=== PATIENT | male | born 1960 | race Caucasian/White ===

== ENCOUNTER 2017-04-22 17:53 | Inpatient (IN) | payer MEDICARE, OTHER ==
[~2017-04-22] VITALS: Ht 175.3 cm; Wt 132.4 kg
--- NOTE | 2017-04-22 18:32 | ED.ADGEN ---
Adult General HPI HPI Patient is a 56-year-old man, history of bipolar disorder, hypertension, diabetes mellitus, CHF, hyperlipidemia, chronic a disease, hypothyroidism, chronic back and joint pain status post right knee replacement, who presents to the emergency department for medical clearance for admission to the [facility] unit for medication adjustment. Patient states "things are just not right in the head". He states he has been on medications "for a long time", and that recent medication changes have not helped control his symptoms, is experiencing behavioral outbursts. He denies any chest pain, shortness breath , fevers, chills, states it experiencing his typical chronic back and joint pain. Denies any new or different complaints, any injuries. He is agreeable with plan for admission to the [facility] for psychiatric evaluation and medication adjustment. Review of Systems Review of Systems Constitutional: Denies fever or chills [] Eyes: Denies change in visual acuity, redness, or eye pain [] HENT: Denies nasal congestion or sore throat [] Respiratory: Denies cough or shortness of breath [] Cardiovascular: No additional information not addressed in HPI [] GI: Denies abdominal pain, nausea, vomiting, bloody stools or diarrhea [] : Denies dysuria or hematuria [] Musculoskeletal: Denies back pain or joint pain [] Integument: Denies rash or skin lesions [] Neurologic: Denies headache, focal weakness or sensory changes [] Endocrine: Denies polyuria or polydipsia [] Patient denying all complaints. Current Medications Current Medications Current Medications Medications (Trade) Dose Ordered Sig/[facility] Start Time Stop Time Status Last Admin Dose Admin Clonazepam (KlonoPIN) 0.5 mg 1X ONCE 04/22/17 20:15 04/22/17 20:16 DC 04/22/17 20:20 0.5 MG Allergies Allergies Allergies Coded Allergies Type Severity Reaction Last Updated Verified No Known Drug Allergies 04/22/17 No Physical Exam Physical Exam Constitutional: Well developed, well nourished, no acute distress, non-toxic appearance. [] HENT: Normocephalic, atraumatic, bilateral external ears normal, oropharynx moist, no oral exudates, nose normal. [] Eyes: PERRLA, EOMI, conjunctiva normal, no discharge. [] Neck: Normal range of motion, no tenderness, supple, no stridor. [] Cardiovascular:Heart rate regular rhythm, 3-5 systolic murmur, no rubs or gallops.[] Lungs & Thorax: Bilateral breath sounds clear to auscultation, no wheezing, rhonchi, rales. No chest or crepitus or tenderness. [] Abdomen: Bowel sounds normal, obese, no rebound, rigidity, no guarding, soft, no tenderness, no masses, no pulsatile masses. [] Skin: Warm, dry, no erythema, no rash. [] Back: No tenderness, no CVA tenderness. [] Extremities: No tenderness, no cyanosis, no clubbing, ROM intact, no edema. Negative Homans sign. Status post right knee arthroplasty.[] Neurologic: Alert and oriented X 3, normal motor function, normal sensory function, no focal deficits noted. [] Psychologic: Affect normal, judgement normal, mood normal. [] Current Patient Data Vital Signs Vital Signs Date Time Temp Pulse Resp B/P (MAP) Pulse Ox O2 Delivery O2 Flow Rate FiO2 04/22/17 18:22 80 20 95 Room Air Lab Results Laboratory Tests Test 04/22/17 18:09 04/22/17 18:30 Urine Collection Type Unknown Urine Color Yellow Urine Clarity Clear Urine pH 7.0 Urine Specific [place] 1.015 Urine Protein 30 mg/dl (NEG-TRACE) Urine Glucose (UA) Neg mg/dL (NEG) Urine Ketones (Stick) Neg mg/dL (NEG) Urine Blood Neg (NEG) Urine Nitrite Neg (NEG) Urine Bilirubin Neg (NEG) Urine Urobilinogen Dipstick 0.2 mg/dL (0.2 mg/dL) Urine Leukocyte Esterase Neg (NEG) Urine RBC Occ /HPF (0-2) Urine WBC Rare /HPF (0-4) Urine Squamous Epithelial Cells None /LPF Urine Bacteria 0 /HPF (0-FEW) Urine Opiates Screen Pos (NEG) Urine Methadone Screen Neg (NEG) Urine Barbiturates Neg (NEG) Urine Phencyclidine Screen Neg (NEG) Urine Amphetamine/Methamphetamine Neg (NEG) Urine Benzodiazepines Screen Pos (NEG) Urine Cocaine Screen Neg (NEG) Urine Cannabinoids Screen Neg (NEG) Urine Ethyl Alcohol Neg (NEG) White Blood Count 10.5 x10^3/uL (4.0-11.0) Red Blood Count 4.55 x10^6/uL (4.30-5.70) Hemoglobin 12.7 g/dL (13.0-17.5) L Hematocrit 38.0 % (39.0-53.0) L Mean Corpuscular Volume 84 fL (79-100) Mean Corpuscular Hemoglobin 28 pg (25-35) Mean Corpuscular Hemoglobin Concent 33 g/dL (31-37) Red Cell Distribution Width 17.8 % (11.5-14.5) H Platelet Count 168 x10^3/uL (140-400) Neutrophils (%) (Auto) 68 % (31-73) Lymphocytes (%) (Auto) 18 % (24-48) L Monocytes (%) (Auto) 11 % (0-9) H Eosinophils (%) (Auto) 2 % (0-3) Basophils (%) (Auto) 1 % (0-3) Neutrophils # (Auto) 7.1 x10^3uL (1.8-7.7) Lymphocytes # (Auto) 1.9 x10^3/uL (1.0-4.8) Monocytes # (Auto) 1.1 x10^3/uL (0.0-1.1) Eosinophils # (Auto) 0.2 x10^3/uL (0.0-0.7) Basophils # (Auto) 0.1 x10^3/uL (0.0-0.2) Sodium Level 143 mmol/L (136-145) Potassium Level 3.8 mmol/L (3.5-5.1) Chloride Level 104 mmol/L (98-107) Carbon Dioxide Level 33 mmol/L (21-32) H Anion Gap 6 (6-14) Blood Urea Nitrogen 17 mg/dL (8-26) Creatinine 1.3 mg/dL (0.7-1.3) Estimated GFR (Cockcroft-Gault) 57.1 BUN/Creatinine Ratio 13 (6-20) Glucose Level 127 mg/dL (70-99) H Calcium Level 7.6 mg/dL (8.5-10.1) L Magnesium Level 1.6 mg/dL (1.8-2.4) L Total Bilirubin 0.5 mg/dL (0.2-1.0) Aspartate Amino Transferase (AST) 16 U/L (15-37) Alanine Aminotransferase (ALT) 15 U/L (16-63) L Alkaline Phosphatase 78 U/L (46-116) Total Protein 5.9 g/dL (6.4-8.2) L Albumin 3.3 g/dL (3.4-5.0) L Albumin/Globulin Ratio 1.3 (1.0-1.7) EKG EKG EC: Patient with a paced rhythm, heart rate 80 beats are minute, QTC of 509, QRS of 162, interpretation limited secondary to paced rhythm, abnormal ECG , does not meet STEMI criteria. As interpreted by me. Radiology/Procedures Radiology/Procedures Not indicated. Course & Med Decision Making Course & Med Decision Making Pertinent Labs and Imaging studies reviewed. (See chart for details) Patient, cooperative in the emergency department. Laboratory studies obtained, revealed mild hyperglycemia with a glucose of 127, CO2 of 33, consistent with patient's history, TSH is pending, no other acutely concerning findings identified. Patient did complain of feeling anxious and the ED, and was provided a dose of his Klonopin 0.5 mg G-tube without issue. EMS transport arranged, and patient transported without issue to the [facility] for additional evaluation. Final Impression Final Impression [] Problems: Dragon Disclaimer Dragon Disclaimer This electronic medical record was generated, in whole or in part, using a voice recognition dictation system. Departure: Impression: Primary Impression: Behavioral problem Additional Impression: Bipolar disorder Disposition: 09 ADMITTED INPATIENT Condition: STABLE ANNA GUTIERREZ DO Apr 22, 2017 18:32
--- NOTE | 2017-04-22 18:34 | EKG ---
[address] [address] Test Date: 2017-04-22 Test Time: 18:09:44 Pat Name: ISHMAEL MCKEON Department: Room: Gender: M Bus Person Dishwasher: XAVIER : 1960 Requested By: ANNA GUTIERREZ Order Number: [id number] Reading MD: Ethan Veronica Measurements Intervals [place] Rate: 80 P: DE: QRS: 155 QRSD: 162 T: 28 QT: 438 QTc: 509 Interpretive Statements SUSPECT SR V-PACED Electronically Signed On 04-26-2017 11:14:58 CDT by Ethan Veronica
[2017-04-22 18:44] LABS: BASO # 0.1 x10^3/uL (0.0-0.2); BASO % 1 % (0-3); EOS # 0.2 x10^3/uL (0.0-0.7); EOS % 2 % (0-3); HEMOGLOBIN 12.7 g/dL (13.0-17.5); LYMPH # 1.9 x10^3/uL (1.0-4.8); LYMPH % 18 % (24-48); MEAN CORPUSCULAR HEMOGLOBIN 28 pg (25-35); MEAN CORPUSCULAR HGB CONC 33 g/dL (31-37); MEAN CORPUSCULAR VOLUME 84 fL (79-100); MONO # 1.1 x10^3/uL (0.0-1.1); MONO % 11 % (0-9); NEUT # 7.1 x10^3uL (1.8-7.7); NEUT % 68 % (31-73); PLATELET COUNT 168 x10^3/uL (140-400); RED BLOOD COUNT 4.55 x10^6/uL (4.30-5.70); RED CELL DISTRIBUTION WIDTH 17.8 % (11.5-14.5); WHITE BLOOD COUNT 10.5 x10^3/uL (4.0-11.0)
[2017-04-22] MEDS ORDERED: ALBUTEROL SULFATE 2.5 MG/3 ML NEBU. ONE (18:56)
[2017-04-22] MEDS ORDERED: BUDESONIDE 0.5 MG/2 ML NEBU ONE (18:56)
[2017-04-22 18:57] LABS: BARBITURATES NEG (NEG); BENZODIAZEPINES POS (NEG); CANNABINOIDS NEG (NEG); COCAINE NEG (NEG); METHADONE NEG (NEG); OPIATES POS (NEG); PHENCYCLIDINE NEG (NEG)
[2017-04-22 18:57] LABS: ALBUMIN 3.3 g/dL (3.4-5.0); ALBUMIN/GLOBULIN RATIO 1.3 (1.0-1.7); CALCIUM 7.6 mg/dL (8.5-10.1); CREATININE 1.3 mg/dL (0.7-1.3); GFR 57.1; MAGNESIUM 1.6 mg/dL (1.8-2.4); POTASSIUM 3.8 mmol/L (3.5-5.1); TOTAL BILIRUBIN 0.5 mg/dL (0.2-1.0); TOTAL PROTEIN 5.9 g/dL (6.4-8.2)
[2017-04-22 18:59] LABS: AMPHETAMINE/METHAMPHETAMINE NEG (NEG)
[2017-04-22 19:30] LABS: BACTERIA,URINE 0 /HPF (0-FEW); BILIRUBIN,URINE NEG (NEG); CLARITY,URINE CLEAR; COLOR,URINE YELLOW; GLUCOSE,URINE NEG (NEG); NITRITE,URINE NEG (NEG); RBC,URINE OCC /HPF (0-2); UROBILINOGEN,URINE 0.2 mg/dL (0.2 mg/dL); WBC,URINE RARE /HPF (0-4)
[2017-04-22] MEDS ORDERED: clonazePAM 1 MG TABLET PO ONE (20:15)
[2017-04-22] MEDS ORDERED: clonazePAM 0.5 MG TABLET PO ONE (20:15)
[2017-04-22] MEDS ORDERED: HYDR-2869 PO (20:44)
[2017-04-22] MEDS ORDERED: ISOS120T2 PO (20:44)
[2017-04-22] MEDS ORDERED: MAG30ORA2 PO (20:44)
[2017-04-22] MEDS ORDERED: INSU100I17 SQ (20:44)
[2017-04-22] MEDS ORDERED: HYDR2TAB31 PO (20:44)
[2017-04-22] MEDS ORDERED: LEVO50TA5 PO (20:44)
[2017-04-22] MEDS ORDERED: ALBU2.5V5 NEB (20:44)
[2017-04-22] MEDS ORDERED: ASPI81TA50 PO (20:44)
[2017-04-22] MEDS ORDERED: CALC625T PO (20:44)
[2017-04-22] MEDS ORDERED: SERT100T PO (20:44)
[2017-04-22] MEDS ORDERED: IPRA3AMP NEB (20:44)
[2017-04-22] MEDS ORDERED: INSU100I13 SQ (20:44)
[2017-04-22] MEDS ORDERED: CLON0.1T PO (20:44)
[2017-04-22] MEDS ORDERED: FORM20VI NEB (20:44)
[2017-04-22] MEDS ORDERED: LOSA50TA6 PO (20:44)
[2017-04-22] MEDS ORDERED: TORS20TA2 PO (20:44)
[2017-04-22] MEDS ORDERED: NITR0.4T22 SL (20:44)
[2017-04-22] MEDS ORDERED: BUDE0.5A11 IH (20:44)
[2017-04-22] MEDS ORDERED: CALC1TAB75 PO (20:44)
[2017-04-22] MEDS ORDERED: ATORVASTATIN CA80 MG PO (20:44)
[2017-04-22] MEDS ORDERED: [UNRECOGNIZED DRUG - CODE] PO (20:44)
[2017-04-22] MEDS ORDERED: DIVA250T4 PO (20:44)
[2017-04-22] MEDS ORDERED: CHOL10003 PO (20:44)
[2017-04-22] MEDS ORDERED: SENN1TAB15 PO (20:44)
[2017-04-22] MEDS ORDERED: POTA20TA4 PO (20:44)
[2017-04-22] MEDS ORDERED: GUAI600T47 PO (20:44)
[2017-04-22] MEDS ORDERED: CLON0.5T PO ×2 (20:44)
[2017-04-22] MEDS ORDERED: WARF4TAB68 PO (20:44)
[2017-04-22] MEDS ORDERED: BISO10TA PO (20:44)
--- NOTE | 2017-04-22 20:45 | NUR ---
Admit Note: Admit 56 year old male patient of Dr. Garcia with DX: Bipolar Disorder Depression. Pt arrived via EMS from ER at 2039. Pt is alert and oriented x 4, Mood is depressed but cooperative and calm. Apical pulse 70 and regular with S1 and S2 heart tones noted, respirations 22 Shallow and slightly labored, Lungs sound with Inspiratory and expiratory Wheezes to bilateral upper and lower lobes. Bowel sounds active x 4 quads with Last BM reported to this am. ABD is obese soft and non-tender to palpation, skin w/d with no areas of impaired skin integrity noted, Peripheral pulses palpable and equal with trace edema noted to BLE. Pt states he has fleeting thought about ending his life with defined plan. Pt requesting to have a private room, Nurse explained to pt that he needed to be close to the Nurses station r/t his SI, Nurse encouraged pt to try having a roommate this night and consider moving to a private room tomorrow if No SI issues arise. Pt reluctantly agreed. Pt in room resting without s/s of pain, discomfort or distress noted at this time.
[2017-04-22] MEDS ORDERED: ALBUTEROL SULFATE 2.5 MG/3 ML NEBU. NEB PRN (21:00)
[2017-04-22] MEDS ORDERED: IPRATRPIUM/ALBUTEROL 0.5/2.5MG 3 ML NEBU. NEB SCH (21:00)
[2017-04-22] MEDS ORDERED: NON FORMULARY ITEM (Formoterol Fumarate (Perforomist) 20 MCG) NEB SCH (21:00)
[2017-04-22] MEDS ORDERED: MAG HYDROX/AL HYDROX/SIMETH 30 ML ORAL.SUSP PO PRN ×2 (21:00)
[2017-04-22] MEDS ORDERED: MAGNESIUM HYDROXIDE 2,400 MG/30 ML ORAL.SUSP. PO PRN (21:00)
[2017-04-22] MEDS ORDERED: ACETAMINOPHEN 325 MG TABLET PO PRN (21:00)
[2017-04-22] MEDS: BUDESONIDE 0.5 MG/2 ML NEBU NEB SCH (21:00)
[2017-04-22] MEDS ORDERED: NITROGLYCERIN SUBLINGUAL 0.4 MG BOTTLE OF 25. SL PRN (21:00)
[2017-04-22] MEDS ORDERED: clonazePAM 0.5 MG TABLET PO PRN (21:00)
[2017-04-22] MEDS ORDERED: METHYL SALICYLATE/MENTHOL TOPICAL OINTMENT 29GM TUBE. TP PRN (21:00)
[2017-04-22 21:17] VITALS: BP 146/93
[2017-04-22 21:31] LABS: VAL ACID 64 mcg/mL (50-100)
[2017-04-22] MEDS: DIVALPROEX SODIUM 250 MG TABLET.DR. PO SCH (21:38)
[2017-04-22] MEDS: clonazePAM 0.5 MG TABLET PO SCH (21:38)
[2017-04-22] MEDS: cloNIDine HCL 0.1 MG TABLET PO SCH (21:39)
[2017-04-22] MEDS: INSULIN DETEMIR 300 UNITS/3 ML INSULN.PEN. SQ SCH (22:13)
[2017-04-22] MEDS: THEOPHYLLINE ANHYDROUS 400 MG TABLET.ER. PO SCH (22:14)
[2017-04-22] MEDS: TEMAZEPAM 15 MG CAPSULE PO PRN (22:39)
--- NOTE | 2017-04-22 22:45 | NUR ---
Nursing Note: Nurse in to administer HS Insulin, Pt noted to be very angry, grinding his teeth and clenching his fists, Pt asked if there was another [facility] treatment place that was not Geriatric. 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 Call placed to Dr. Garcia, Nurse discussed these issues with Dr. Garcia and informed him of pt request for a private room, Orders received as follows: Zydis 5mg PRN Q2h Psychosis and agitation, Temazepam 15mg PRN QHS for Insomnia, May repeat x 1, and May have private room if Pt agrees to Sign a contract that he will not harm himself and will seek staff if he is feeling the need for self harm. Nurse in to discuss these orders with Pt, pt agrees to sign a contract for prevention of Self-harm, and request to have the Zydis and Temazepam now. PRN Temazepam and Zydis administered per order, Contract for prevention of Self-harm signed and placed in pt chart. Pt moved to Room 200 at this time
[2017-04-23] MEDS ORDERED: IPRATRPIUM/ALBUTEROL 0.5/2.5MG 3 ML NEBU. ONE (02:56)
[2017-04-23] MEDS: IPRATRPIUM/ALBUTEROL 0.5/2.5MG 3 ML NEBU. NEB SCH ×4 (05:56→20:18)
[2017-04-23 06:14] VITALS: BP 115/67
[2017-04-23] MEDS: LEVOTHYROXINE 50 MCG TABLET PO SCH (06:20)
--- NOTE | 2017-04-23 06:47 | NUR ---
SW reviewed pt insurance upon admit. Face Sheet, C-Snap and intake state pt insurance is Medicare primary.
[2017-04-23] MEDS: clonazePAM 0.5 MG TABLET PO SCH ×3 (08:10→20:08)
[2017-04-23] MEDS: TORSEMIDE 20 MG TABLET. PO SCH (08:11)
[2017-04-23] MEDS: THEOPHYLLINE ANHYDROUS 400 MG TABLET.ER. PO SCH ×2 (08:11→21:09)
[2017-04-23] MEDS: ISOSORBIDE MONONITRATE ER 30 MG TAB.ER.24H PO SCH (08:11)
[2017-04-23] MEDS: CALCIUM CARB/VIT D3 500/200 TABLET PO SCH ×2 (08:12→17:03)
[2017-04-23] MEDS: POTASSIUM CHLORIDE 20 MEQ TABLET.ER. PO SCH (08:12)
[2017-04-23] MEDS: CALCIUM POLYCARBOPHIL 625 MG TABLET PO SCH (08:12)
[2017-04-23] MEDS: SENNOSIDES/DOCUSATE 8.6/50MG TABLET. PO SCH (08:12)
[2017-04-23] MEDS: ASPIRIN ENTERIC COATED 81 MG TABLET.DR. PO SCH (08:13)
[2017-04-23] MEDS: CHOLECALCIFEROL (VITAMIN D3) 1,000 UNIT TABLET PO SCH (08:13)
[2017-04-23] MEDS: ATENOLOL 25 MG TABLET PO SCH (08:13)
[2017-04-23] MEDS: LOSARTAN 50 MG TABLET. PO SCH (08:14)
[2017-04-23] MEDS: INSULIN ASPART 300 UNITS/3 ML INSULN.PEN SQ SCH ×3 (08:14→17:05)
[2017-04-23] MEDS: cloNIDine HCL 0.1 MG TABLET PO SCH ×3 (08:16→20:06)
[2017-04-23] MEDS: DIVALPROEX SODIUM 250 MG TABLET.DR. PO SCH ×3 (08:17→20:05)
[2017-04-23] MEDS ORDERED: SERTRALINE 100 MG TABLET. PO SCH (09:00)
--- NOTE | 2017-04-23 10:00 | NUR ---
THERAPEUTIC RECREATION GROUP NOTE TITLE :Ball Bounce and Daily Awareness ACTIVITY : Activities and Games GOAL : Increase alertness, focus, decrease stress DURATION : 60 minutes RESPONSE : Minimal participation. Pt. was not around group until the very end. He did not want to join the group outside, but was agreeable to catch and bounce the ball one time at the every end.
[2017-04-23] MEDS: HYDROmorphone 2 MG TABLET PO PRN ×2 (10:10→21:14)
[2017-04-23] MEDS: BUDESONIDE 0.5 MG/2 ML NEBU NEB SCH ×2 (10:15→20:18)
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
--- NOTE | 2017-04-23 11:26 | NUR ---
LIBRA spoke with Leilani at [facility] for information regarding pt transitioning to the community, Leilani was able to tell SW Money follows person has been renewed unless pt has used funds prior. Also pt needs [facility] grounds caretaker that can help him locate housing and to apply for the PD waiver that has about 6 month waiting list. LIBRA will provide him with this information.
--- NOTE | 2017-04-23 11:30 | NUR ---
THERAPEUTIC RECREATION GROUP NOTE TITLE :Movement to Music: Flexibility ACTIVITY : Movement/ Exercise GOAL : Increase morale, attention, flexibility. Decrease stress/anxiety. DURATION : 30 Minutes RESPONSE : No participation. Pt. was sleeping.
--- NOTE | 2017-04-23 12:39 | NUR ---
SW called and left message for pt SW.
--- NOTE | 2017-04-23 14:00 | NUR ---
ACTIVITY THERAPY ASSESSMENT Completed based on observation and interview. Pt. initiated a conversation with HONEY GRADER AND BLENDER about cancer after reading about a nurse who recently . He talked about others having bigger issues and comparing his to theirs. HONEY GRADER AND BLENDER explained every person's struggled are real for that particular person and it's difficult to compare them. Pt. stated he understands everything happens for a reason and went on to talk to HONEY GRADER AND BLENDER about his past and what brought him here. He spoke about a past suicide attempt and stated he started having those thoughts again so he sought out help. He denied SI at this time but went on to say his medications usually help a lot. Pt. asked about being about to go down to the PT/OT workout room to get on a bike instead of bounce a ball around. Pt. appeared defeated when speaking with HONEY GRADER AND BLENDER. At times he can be impatient with others who are disruptive. 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 Initial goal aimed to educate on time management, leisure awareness and increase motivation: Pt. will participate in all group and individual sessions focused on time management and leisure awareness.
--- NOTE | 2017-04-23 14:20 | NUR ---
THERAPEUTIC RECREATION GROUP NOTE TITLE :[place] ACTIVITY : Activities and Games GOAL : Increase alertness, focus, morale, decrease stress, team building, positive communication DURATION : 50 Minutes RESPONSE : Full participation. Pt. played independently and asked questions about the structure of the games. He shared his experience and was calm the entire time. He tried to redirect another patient who was being disruptive and appears to become slightly frustrated.
[2017-04-23 16:28] VITALS: BP 132/86
[2017-04-23] MEDS: WARFARIN 4 MG TABLET. PO SCH (17:03)
[2017-04-23 19:12] LABS: T3 TOTAL 145 ng/dL (71-180); THYROXINE 9.1 ug/dL (4.5-12.0)
--- NOTE | 2017-04-23 20:14 | PDOC ---
Exam Duong Demential Exam: Duong Note: Please also refer to the separate dictated note~for this date of service dictated separately.~Patient seen individually. Discussed the patient with Nursing staff reviewed the chart.~Reviewed interim history and current functioning. Reviewed vital signs,~Labs/ Radiology~and current medications noted below. Continue current treatment with the changes noted in the dictated addendum note Assessment: Vital Signs: Vital Signs Date Time Temp Pulse Resp B/P (MAP) Pulse Ox O2 Delivery O2 Flow Rate FiO2 04/23/17 20:06 80 132/86 04/23/17 18:06 96 Room Air 04/23/17 16:28 97.1 18 I&O Intake and Output 04/24/17 07:00 Intake Total 1140 ml Balance 1140 ml Intake Oral 1140 ml # Bowel Movements 1 Labs: Laboratory Tests Test 04/22/17 21:20 04/23/17 08:00 04/23/17 11:16 04/23/17 16:29 Prothrombin Time 24.7 SEC (9.4-11.4) H Prothrombin Time INR 2.4 (0.9-1.1) H Thyroxine (T4) 9.1 ug/dL (4.5-12.0) Total Triiodothyronine (TT3) 145 ng/dL (71-180) RPR Titer Additional Testing Pending Glucose (Fingerstick) 115 mg/dL (70-99) H 158 mg/dL (70-99) H 102 mg/dL (70-99) H Test 04/23/17 19:18 Glucose (Fingerstick) 146 mg/dL (70-99) H Current Medications: Meds: Current Medications Clonazepam (KlonoPIN) 0.5 mg 1X ONCE PO ; Start 04/22/17 at 20:15; Stop at 20:15; Status DC Clonazepam (KlonoPIN) 0.5 mg 1X ONCE PO Last administered on 04/22/17t 20:20; Start 04/22/17 at 20:15; Stop 04/22/17 at 20:16; Status DC Acetaminophen (Tylenol) 650 mg PRN Q6HRS PRN PO PAIN / TEMP; Start 04/22/17 at 21:00 Multi-Ingredient Ointment (Analgesic [place]) 1 ismael PRN QID PRN TP MUSCLE PAIN; Start 04/22/17 at 21:00 Al Hydroxide/Mg Hydroxide (Mylanta Plus Xs) 15 ml PRN AFTMEALHC PRN PO DYSPEPSIA; Start 04/22/17 at 21:00; Status UNV Magnesium Hydroxide (Milk Of Magnesia) 2,400 mg PRN QHS PRN PO CONSTIPATION; Start 04/22/17 at 21:00 Clonazepam (KlonoPIN) 0.5 mg PRN DAILY PRN PO ANXIETY; Start 04/22/17 at 21:00 Clonazepam (KlonoPIN) 0.5 mg TID PO Last administered on 04/23/17 20:08; Start 04/22/17 at 21:30 Divalproex Sodium (Depakote) 250 mg TID PO Last administered on 04/23/17 20:05 ; Start 04/22/17 at 21:30 Sertraline HCl (Zoloft) 150 mg DAILY PO Last administered on 04/23/17 08:10; Start 04/23/17 at 09:00 Albuterol Sulfate (Ventolin) 2.5 mg STK-MED ONCE .ROUTE ; Start 04/22/17 at 18: 56; Stop 04/22/17 at 20:56; Status DC Budesonide (Pulmicort) 0.5 mg STK-MED ONCE .ROUTE ; Start 04/22/17 at 18:56; Stop 04/22/17 at 20:56; Status DC Albuterol Sulfate (Ventolin) 2.5 mg PRN Q2HR PRN NEB WHEEZING; Start 04/22/17 at 21:00 Aspirin (Aspirin Enteric Coated) 81 mg DAILY PO Last administered on 04/23/17 08:13; Start 04/23/17 at 09:00 Budesonide (Pulmicort) 0.5 mg BID NEB Last administered on 04/23/17 10:15; Start 04/22/17 at 21:00 Calcium Polycarbophil (Fibercon) 1,250 mg DAILY PO Last administered on 08:12; Start 04/23/17 at 09:00 Vitamin D (Vitamin D3) 2,000 unit DAILY PO Last administered on 04/23/17 08:13 ; Start 04/23/17 at 09:00 Clonidine HCl (Catapres) 0.1 mg TID PO Last administered on 04/23/17 20:06; Start 04/22/17 at 21:30 Guaifenesin (Mucinex Er) 600 mg Q12HR PO Last administered on 04/23/17 20:05; Start 04/22/17 at 21:30 Hydralazine HCl (Apresoline) 50 mg TID PO Last administered on 04/23/17 20:05 ; Start 04/22/17 at 21:30 Hydromorphone HCl (Dilaudid) 2 mg PRN Q3HRS PRN PO PAIN Last administered on 10:10; Start 04/22/17 at 21:00 Insulin Aspart (NovoLOG) 6 units TIDWMEALS SQ Last administered on 04/23/17 17 :05; Start 04/23/17 at 08:00 Albuterol/ Ipratropium (Duoneb) 3 ml QID NEB Last administered on 04/22/17 21: 00; Start 04/22/17 at 21:00; Stop 04/22/17 at 21:23; Status DC Levothyroxine Sodium (Synthroid) 50 mcg DAILY07 PO Last administered on 06:20; Start 04/23/17 at 07:00 Losartan Potassium (Cozaar) 50 mg DAILY PO Last administered on 04/23/17 08:14 ; Start 04/23/17 at 09:00 Al Hydroxide/Mg Hydroxide (Mylanta Plus Xs) 15 ml PRN Q4HRS PRN PO DYSPEPSIA; Start 04/22/17 at 21:00 Nitroglycerin (Nitrostat) 0.4 mg PRN Q5MIN PRN SL CHEST PAIN; Start 04/22/17 at 21:00 Potassium Chloride (Klor-Con) 40 meq DAILY PO Last administered on 04/23/17 08 :12; Start 04/23/17 at 09:00 Senna/Docusate Sodium (Senna Plus) 1 tab DAILY PO Last administered on 08:12; Start 04/23/17 at 09:00 Theophylline (Theophylline Extended Release) 200 mg BID PO Last administered on 04/23/17 08:11; Start 04/22/17 at 21:30 Torsemide (Demadex) 40 mg DAILY PO Last administered on 04/23/17 08:11; Start 04/23/17 at 09:00 Warfarin Sodium (Coumadin) 4 mg DAILY16 PO Last administered on 04/23/17 17:03 ; Start 04/23/17 at 16:00 Atorvastatin Calcium (Lipitor) 80 mg QHS PO ; Start 04/23/17 at 21:00 Atenolol (Tenormin) 100 mg DAILY PO Last administered on 04/23/17 08:13; Start 04/23/17 at 09:00 Calcium/Vitamin D (Oscal D 500mg/ 200uts) 1 tab BIDWMEALS PO Last administered on 04/23/17 17:03; Start 04/23/17 at 08:00 Non-Formulary Medication 20 mcg Q12HR NEB ; Start 04/22/17 at 21:00; Status UNV Insulin Detemir (Levemir) 8 units QHS SQ Last administered on 04/22/17 22:13; Start 04/22/17 at 22:00 Isosorbide Mononitrate (Imdur) 120 mg DAILY PO Last administered on 04/23/17 08:11; Start 04/23/17 at 09:00 Albuterol/ Ipratropium (Duoneb) 3 ml RTQID NEB Last administered on 04/23/17 16:00; Start 04/23/17 at 08:00 Warfarin Sodium (Coumadin Per Physician) 1 each PRN DAILY PRN MC SEE COMMENTS; Start 04/22/17 at 21:45 Temazepam (Restoril) 15 mg PRN QHS PRN PO INSOMNIA, MAY REPEAT X1 Last administered on 04/22/17 22:39; Start 04/22/17 at 22:30 Olanzapine (ZyPREXA ZYDIS) 5 mg PRN Q2HR PRN PO Agitation Last administered on 04/22/17 22:38; Start 04/22/17 at 22:30 Albuterol/ Ipratropium (Duoneb) 3 ml STK-MED ONCE .ROUTE ; Start 04/23/17 at 02: 56; Stop 04/23/17 at 04:57; Status DC Warfarin Sodium (Coumadin Per Pharmacy) 1 each PRN DAILY PRN MC SEE COMMENTS; Start 04/23/17 at 20:00; Status UNV Active Scripts Active Reported Vitamin D3 (Cholecalciferol (Vitamin D3)) 1,000 Unit Tablet 2,000 Unit PO DAILY Torsemide 20 Mg Tablet 40 Mg PO DAILY Theochron (Theophylline Anhydrous) 200 Mg Tab.er.12h 200 Mg PO BID Zoloft (Sertraline Hcl) 100 Mg Tablet 150 Mg PO DAILY Senna-S Tablet (Sennosides/Docusate Sodium) 1 Each Tablet 1 Tab PO DAILY Klor-Con M20 (Potassium Chloride) 20 Meq Tab.er.prt 40 Meq PO DAILY Novolog Flexpen (Insulin Aspart) 100 Unit/1 Ml Insuln.pen 6 Unit SQ TIDWMEALS NITROGLYCERIN SubLingual (Nitroglycerin) 0.4 Mg Tab.subl 0.4 Mg SL PRN Q5MIN PRN Mag-Al Plus Xs Suspension (Mag Hydrox/Al Hydrox/Simeth) 30 Ml Oral.susp 15 Ml PO PRN Q4HRS PRN Mucinex (Guaifenesin) 600 Mg Tablet.er 600 Mg PO Q12HR Losartan Potassium 50 Mg Tablet 50 Mg PO DAILY Levothyroxine Sodium 50 Mcg Tablet 50 Mcg PO DAILY07 Lantus Solostar (Insulin Glargine,Hum.rec.anlog) 100 Unit/1 Ml Insuln.pen 8 Unit SQ QHS Klonopin (Clonazepam) 0.5 Mg Tablet 0.5 Mg PO TID Klonopin (Clonazepam) 0.5 Mg Tablet 0.5 Mg PO PRN DAILY PRN Isosorbide Mononitrate Er (Isosorbide Mononitrate) 120 Mg Tab.er.24h 120 Mg PO DAILY Hydralazine Hcl 50 Mg Tablet 50 Mg PO TID Perforomist (Formoterol Fumarate) 20 Mcg/2 Ml Vial.neb 20 Mcg NEB Q12HR Fibercon (Calcium Polycarbophil) 625 Mg Tablet 1,250 Mg PO DAILY Duoneb 0.5-3(2.5) Mg/3 Ml (Albuterol/Ipratropium) 3 Ml Ampul.neb 3 Ml NEB QID Dilaudid (Hydromorphone Hcl) 2 Mg Tablet 2 Mg PO PRN Q3HRS PRN Depakote (Divalproex Sodium) 250 Mg Tablet.dr 250 Mg PO TID Coumadin (Warfarin Sodium) 4 Mg Tablet 4 Mg PO DAILY16 Clonidine Hcl 0.1 Mg Tablet 0.1 Mg PO TID Calcium 600 + Vit D 200 Tablet (Calcium Carbonate/Vitamin D3) 1 Each Tablet 1 Tab PO BID Budesonide 0.5 Mg/2 Ml Ampul.neb 0.5 Mg IH BID Bisoprolol Fumarate 10 Mg Tablet 10 Mg PO DAILY Atorvastatin Calcium 80 Mg Tablet 80 Mg PO QHS Aspir-Low (Aspirin) 81 Mg Tablet.dr 81 Mg PO DAILY Albuterol Sulfate Neb Soln (Albuterol Sulfate) 2.5 Mg/3 Ml Vial.neb 2.5 Mg NEB PRN Q2HR PRN Diagnosis: Problems: (1) Bipolar disorder (2) Behavioral problem LISA MAGANA MD Apr 23, 2017 20:14
[2017-04-23] MEDS: INSULIN DETEMIR 300 UNITS/3 ML INSULN.PEN. SQ SCH (20:28)
[2017-04-23] MEDS: ATORVASTATIN CALCIUM 20 MG TABLET PO SCH (21:00)
[2017-04-23] MEDS: TEMAZEPAM 15 MG CAPSULE PO PRN (21:14)
--- NOTE | 2017-04-23 21:41 | NUR ---
Behavior Intervention Response and Plan: BIRP Note: Behavior: Assumed Care of patient, patient located in Patient Room at shift change. Patient exhibited the following behavior Drowsy, Cooperative, compliant. Brief assessment on rounds of vital signs, medication needs, lab studies, and pain. Treatment plan problems 1-2. Intervention: Patient assessed and the following interventions initiated safety checks 15 Minute Checks Cognitive Assessment , Head to toe Assessment , Medications. Response: After interactions and interventions patient responded in the following manner, Calm , Drowsy ,Cooperative. Continue to assess behaviors and condition will continue to monitor throughout the shift as needed. Patient educated on ADL's, and hand hygiene. Plan: Continue to monitor Master Treatment Plan for patient's progress toward short term goals of Decreased Agitation, Improved Mood, halfway goals to return to previous living setting vs placement. Continue to assess patient for changes in above assessment. Monitor for medication needs, pain, and safety concerns. Hourly rounding performed to ensure safe environment.
[2017-04-24 02:07] LABS: HEMOGLOBIN A1C 5.5 % (4.8-5.6)
[2017-04-24] MEDS: IPRATRPIUM/ALBUTEROL 0.5/2.5MG 3 ML NEBU. NEB SCH ×4 (05:20→20:27)
[2017-04-24 06:02] VITALS: BP 120/79
--- NOTE | 2017-04-24 07:45 | NUR ---
Patient has not had bowel movement since 04/19. Administered PRN MOM will continue to monitor. Active BS X4
--- NOTE | 2017-04-24 08:00 | NUR ---
Behavior Intervention Response and Plan: BIRP Note: Behavior: Assumed Care of patient, patient located in Dining Room at shift change. Patient exhibited the following behavior Calm, Cooperative, Withdrawn. Brief assessment on rounds of vital signs, medication needs, lab studies, and pain. Treatment plan problems . Intervention: Patient assessed and the following interventions initiated safety checks 15 Minute Checks Head to toe Assessment , Cognitive Assessment , Medications. Response: After interactions and interventions patient responded in the following manner, Disorganized , Able to Focus on Task ,Withdrawn. Continue to assess behaviors and condition will continue to monitor throughout the shift as needed. Patient educated on ADL's, and hand hygiene. Plan: Continue to monitor Master Treatment Plan for patient's progress toward short term goals of Improved Mood, Decreased Anxiety, rat exterminator goals to return to previous living setting vs placement. Continue to assess patient for changes in above assessment. Monitor for medication needs, pain, and safety concerns. Hourly rounding performed to ensure safe environment.
[2017-04-24] MEDS: CHOLECALCIFEROL (VITAMIN D3) 1,000 UNIT TABLET PO SCH (08:24)
[2017-04-24] MEDS: ISOSORBIDE MONONITRATE ER 30 MG TAB.ER.24H PO SCH (08:24)
[2017-04-24] MEDS: SENNOSIDES/DOCUSATE 8.6/50MG TABLET. PO SCH (08:25)
[2017-04-24] MEDS: CALCIUM POLYCARBOPHIL 625 MG TABLET PO SCH (08:25)
[2017-04-24] MEDS: CALCIUM CARB/VIT D3 500/200 TABLET PO SCH ×2 (08:25→17:02)
[2017-04-24] MEDS: POTASSIUM CHLORIDE 20 MEQ TABLET.ER. PO SCH (08:25)
[2017-04-24] MEDS: clonazePAM 0.5 MG TABLET PO SCH ×3 (08:26→19:47)
[2017-04-24] MEDS: cloNIDine HCL 0.1 MG TABLET PO SCH ×3 (08:26→19:45)
[2017-04-24] MEDS: DIVALPROEX SODIUM 250 MG TABLET.DR. PO SCH ×3 (08:26→19:46)
[2017-04-24] MEDS: ATENOLOL 25 MG TABLET PO SCH (08:26)
[2017-04-24] MEDS: LOSARTAN 50 MG TABLET. PO SCH (08:27)
[2017-04-24] MEDS: LEVOTHYROXINE 50 MCG TABLET PO SCH (08:27)
[2017-04-24] MEDS: THEOPHYLLINE ANHYDROUS 400 MG TABLET.ER. PO SCH ×2 (08:27→19:47)
[2017-04-24] MEDS: ASPIRIN ENTERIC COATED 81 MG TABLET.DR. PO SCH (08:27)
[2017-04-24] MEDS: TORSEMIDE 20 MG TABLET. PO SCH (08:33)
[2017-04-24] MEDS: DULoxetine HCL 30 MG CAPSULE.DR PO SCH (08:33)
[2017-04-24] MEDS: INSULIN ASPART 300 UNITS/3 ML INSULN.PEN SQ SCH ×3 (08:34→17:05)
--- NOTE | 2017-04-24 10:05 | HP ---
ADMIT DATE: 04/23/2017 PSYCHIATRIC ADMISSION HISTORY/EVALUATION This is a late entry, date of service 04/23/2017, covers elements not covered in my initial note of 04/23/2017. I met with the patient the evening of 04/23/2017 for this evaluation. Discussed with nursing staff, reviewed the chart. Previously, I discussed with the patient on 2 or 3 separate occasions on 04/22/2017 with the nursing staff to review referral information from [facility], Dr. Vinayak Swann, his primary care physician to decide on whether the patient needs inpatient psychiatric criteria. IDENTIFYING DATA: The patient is a 56-year-old male referred by Dr. Swann from [facility] on account of worsening symptoms of depression, suicidal ideation, but no plan or attempt. He was increasingly tearful, paranoid, extremely anxious, having impulse control issues. The patient has been frustrated because of his ill health from the physical standpoint, has a past diagnosis of bipolar disorder. He was cognitively reasonably intact, has been getting more depressed recently about his health, hopeless, helpless, worthless has prompting this admission. CHIEF COMPLAINT: "Yes, I have been depressed. I have been diagnosed with bipolar disorder in the past, but my physical health is the main problem. I have no means to support myself and all my money goes to the prison for me to live in. Life is not worth living, but I would not hurt myself." HISTORY OF PRESENT ILLNESS: The patient reportedly has a history of bipolar disorder and additionally his brother has a diagnosis of bipolar disorder and therefore it runs in the family. Nevertheless, he has been stable for some time, but over the last couple of weeks he has been increasingly depressed, hopeless, helpless, worthless, suicidal as noted above, paranoid. He has had sleep and appetite changes. No active homicidal ideation. No active hallucinations. He was started on Depakote by his primary care physician at the nursing facility and previously multiple changes in his psychotropics had been attempted including augmentation of the antidepressants with Abilify, but he failed all of this thus resulting in this referral. PAST PSYCHIATRIC HISTORY: As above. MEDICAL HISTORY: Multiple problems including COPD, right knee replacement in 02/2017, atrial fibrillation, diabetes mellitus, CHF, pacemaker , hyperlipidemia, hypertension, hypothyroid, chronic kidney disease, history of coronary artery bypass, sleep apnea, has CPAP machine that he uses. DRUG ALLERGIES: Negative. CODE STATUS: Full code. Accu-Cheks a.c. and at bedtime. DIET: Regular. MEDICATIONS: Takes his medications whole. Ambulates ad ghazala. UA is negative at admission. CURRENT PSYCHOTROPICS: Zoloft 150 mg a day, Klonopin 0.5 mg t.i.d. and 0.5 mg daily p.r.n., Depakote 250 t.i.d., Zyprexa p.r.n. He has had marked insomnia and has failed treatment on various medications for this. We started Restoril 15 mg at bedtime p.r.n., december repeat x 1 for insomnia at the time of his admission. SOCIAL HISTORY: No history of alcohol or drug abuse, though he has used alcohol in the past has not been excessive. 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 No physical, sexual or elder abuse history is noted. Not known to be a perpetrator. MENTAL STATUS EXAMINATION: The patient was seen individually evening of 04/23/2017. He is well oriented. Previous night had been called by the nursing staff around midnight. The patient was extremely distraught, depressed, hopeless, worthless because he did not want to share a room with a demented patient. At my request, nursing staff had moved him into a private room, had him write a contract not to hurt himself and informed the staff if he feels more suicidal since his room was further away from the nursing station then where he was sharing a room with the other patient and the patient agreed to this, he did better after this. Abstraction fair, computation somewhat impaired, language function intact, attention span short. Mood is depressed, hopeless, worthless. Affect is mood congruent, somewhat paranoid. No active suicidal or homicidal ideation. Attention span short, language function intact. Intellect average. LABORATORY DATA: Reviewed. Valproic acid level is 64. IMPRESSION: Major depressive disorder, recurrent, severe with history of suicidal ideation and possible psychotic features, probable bipolar 1 disorder, depressed with history of psychotic features; anxiety disorder, unspecified; impulse control disorder, unspecified. Rest as above. PLAN: Admit to geropsychiatry unit at [facility]. I will see the patient daily individually from a psychiatric standpoint, medical followup with Dr. Lee/Dr. Hinton. We did start Restoril for insomnia. The patient states he has failed augmentation with Abilify in the past, did not do well on that. He does have chronic pain from orthopedic related problems and we will change the Zoloft to Cymbalta 30 mg a day, gradually increase to 60 and 90 mg a day. As an SNRI should be more effective than Zoloft and additionally help with the pain symptoms. We will maintain Depakote at therapeutic level. Make other considerations in his psychotropic medication management depending on his progress. LISA MAGANA MD DR: HARDIK/sandro JOB#: [id number] / [id number]
[2017-04-24] MEDS: BUDESONIDE 0.5 MG/2 ML NEBU NEB SCH ×2 (10:40→20:27)
[2017-04-24] MEDS: HYDROmorphone 2 MG TABLET PO PRN (12:21)
--- NOTE | 2017-04-24 12:21 | NUR ---
Patient is C/O pain "all over" 01/16 patient requested PRN pain medication.
[2017-04-24 15:37] VITALS: BP 136/84
[2017-04-24] MEDS: WARFARIN 4 MG TABLET. PO SCH (17:02)
--- NOTE | 2017-04-24 17:45 | NUR ---
Patient requested PRN pain medication at dinner. Patient reported pain "all over" from walking around so much today. Patient has been out and about more today, Administered PRN Dilaudid will continue to monitor.
[2017-04-24] MEDS: ATORVASTATIN CALCIUM 20 MG TABLET PO SCH (19:45)
[2017-04-24] MEDS: TEMAZEPAM 15 MG CAPSULE PO PRN (19:46)
[2017-04-24] MEDS: INSULIN DETEMIR 300 UNITS/3 ML INSULN.PEN. SQ SCH (19:48)
--- NOTE | 2017-04-24 19:48 | CONS ---
DATE OF CONSULTATION: 04/23/2017 REASON FOR CONSULTATION: Medical management. HISTORY OF PRESENT ILLNESS: The patient is a 56-year-old male patient, a resident at [facility] in [place], who was admitted on the account of severe depression, suicidal ideation, although no plans, increased tearfulness, paranoia, extremely anxious with impulse control issues, all this on a background of bipolar disorder with marked depression. On questioning him, his main complaint that he is unable to live on his own in his apartment, he failed multiple times and everytime, he becomes short of breath. He has a multitude of medical problems and most recent one was right knee replacement on 02/2017. PAST MEDICAL HISTORY: Significant for chronic obstructive pulmonary disease, diabetes, hypertension, hyperlipidemia, hypothyroidism, chronic kidney disease. He has congestive heart failure, atrial fibrillation, has morbid obesity, obstructive sleep apnea for which he is on CPAP. PAST SURGICAL HISTORY: Significant for coronary artery bypass graft surgery. He has also percutaneous coronary intervention with multiple stents deployment, atrial ablation, and right total knee arthroplasty. FAMILY HISTORY: Unremarkable. SOCIAL HISTORY: He is single. He is actually . Does not smoke, drink alcohol or use any recreational drugs. 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 ALLERGIES: He has no known drug allergies. MEDICATIONS: He is currently on following medications: He is on albuterol sulfate 2.5 mg/3 mL by nebulizer every 2 hours as needed, aspirin 81 mg once a day, atorvastatin calcium 80 mg at bedtime, bisoprolol fumarate 10 mg daily, Pulmicort 0.5 mg twice a day, calcium carbonate with vitamin D3 one tablet twice a day, FiberCon 1250 mg daily, cholecalciferol 2000 International Units once a day, clonazepam 0.5 mg p.o. daily p.r.n. for anxiety, clonazepam 0.5 mg 3 times a day, clonidine 0.2 mg 3 times a day, divalproex ____ Depakote 250 mg 3 times a day, formoterol fumarate 20 mcg by nebulizer twice a day, guaifenesin 600 mg twice a day, hydralazine 50 mg p.o. t.i.d., hydromorphone 2 mg every 3 hours, NovoLog FlexPen 6 units 3 times a day with meals. He is on Lantus 8 units at bedtime, ipratropium bromide, albuterol inhaler by nebulizer 4 times a day, isosorbide mononitrate 120 mg once a day, levothyroxine 50 mcg once a day, losartan potassium 50 mg daily, nitroglycerin 0.4 mg sublingually as needed, potassium chloride 40 mEq once a day, Senna-S 1 tablet daily, sertraline 150 mg daily, theophylline anhydrous 200 mg p.o. b.i.d., torsemide 40 mg daily, warfarin 4 mg daily. REVIEW OF SYSTEMS: The patient denied any blurring of vision, cataract, glaucoma or macular degeneration. Denied any earache, tinnitus or sensorineural deafness. Denied any nosebleeds, stuffy nose or postnasal drip. Denied any sore throat, sore tongue, toothache, hoarseness of voice or difficulty swallowing. PHYSICAL EXAMINATION: GENERAL: When I examined him, he was sitting comfortably in his chair, in no apparent respiratory distress, was pale, but no jaundice, cyanosis, or thyromegaly. No jugular venous distention. No limb edema. VITAL SIGNS: His heart rate was 80, blood pressure ____, his temperature was 97.1, respiratory rate was 18 and oxygen saturation was 96% on room air. HEAD, EYES, EARS, NOSE, AND THROAT: Showed normocephalic, atraumatic. NECK: Supple. HEART: Showed normal first and second sounds. No gallop, rub or murmur. CHEST: Shows central trachea, equally reduced expansion, reduced air entry, vesicular sounds. No crepitation or rhonchi. ABDOMEN: Distended, soft, nontender. NEUROLOGIC: He was awake, alert, responding appropriately. Cranial nerves intact. EXTREMITIES: He moves extremities without difficulty, ambulates without assistance or assistive devices. LABORATORY DATA: His lab work showed a white cell count 10,500; hemoglobin 12.7; hematocrit 38; MCV 84 and platelet count of 168,000. His chemistry showed a serum sodium of 143, potassium 3.8, chloride 104, bicarbonate 33, anion gap of 6, BUN 17, creatinine 1.3, estimated GFR was 57 mL per minute. His glucose was 127, calcium was 7.6, magnesium was 1.6. Total bilirubin, AST, ALT, alkaline phosphatase were normal. Total protein was 5.9, albumin 3.3. His prothrombin time was 24.7, INR of 2.4. Urinalysis was essentially unremarkable and urine toxicology screen was positive for opiates and benzodiazepine. His valproic acid was 64 mcg/mL, which is well within therapeutic range. IMPRESSION: In summary, this is a 56-year-old male patient, who was admitted with severe depression and increased tearfulness, paranoia. He has suicidal ideation, although denied any plans at this time, all these on a background of bipolar disorder and depression. He has a multitude of medical problems including hypertension, hyperlipidemia, hypothyroidism, type 2 diabetes mellitus, congestive heart failure, coronary artery disease, status post coronary artery bypass graft surgery as well as percutaneous coronary intervention. He also has obstructive sleep apnea for which he is on CPAP. He underwent knee replacement recently and has atrial fibrillation, status post atrial ablation. Rate is well controlled and we will anticoagulate with Coumadin. In fact, his INR was 2.4, which is well within therapeutic range. So all in all, the patient seems to be stable medically. I will definitely continue on all his current medication. I will follow all the lab works that are still pending at time of this dictation, make any necessary recommendations. Thank you Dr. Garcia for allowing me to participate in the care of this patient. FINESSE REGAN MD DR: JUANITO/sandro JOB#: [id number] / [id number]
--- NOTE | 2017-04-24 22:37 | PDOC ---
Exam Duong Demential Exam: Duong Note: Please also refer to the separate dictated note~for this date of service dictated separately.~Patient seen individually. Discussed the patient with Nursing staff reviewed the chart.~Reviewed interim history and current functioning. Reviewed vital signs,~Labs/ Radiology~and current medications noted below. Continue current treatment with the changes noted in the dictated addendum note Assessment: Vital Signs: Vital Signs Date Time Temp Pulse Resp B/P (MAP) Pulse Ox O2 Delivery O2 Flow Rate FiO2 04/24/17 20:31 Room Air 04/24/17 20:27 96 04/24/17 19:46 82 136/84 04/24/17 15:37 98.5 16 I&O Intake and Output 04/25/17 07:00 Intake Total 1320 ml Balance 1320 ml Intake Oral 1320 ml # Bowel Movements 1 Labs: Laboratory Tests Test 04/24/17 07:23 04/24/17 11:31 04/24/17 16:42 04/24/17 19:09 Glucose (Fingerstick) 99 mg/dL (70-99) 150 mg/dL (70-99) H 138 mg/dL (70-99) H 137 mg/dL (70-99) H Current Medications: Meds: Current Medications Clonazepam (KlonoPIN) 0.5 mg 1X ONCE PO ; Start 04/22/17 at 20:15; Stop at 20:15; Status DC Clonazepam (KlonoPIN) 0.5 mg 1X ONCE PO Last administered on 04/22/17t 20:20; Start 04/22/17 at 20:15; Stop 04/22/17 at 20:16; Status DC Acetaminophen (Tylenol) 650 mg PRN Q6HRS PRN PO PAIN / TEMP; Start 04/22/17 at 21:00 Multi-Ingredient Ointment (Analgesic [place]) 1 ismael PRN QID PRN TP MUSCLE PAIN; Start 04/22/17 at 21:00 Al Hydroxide/Mg Hydroxide (Mylanta Plus Xs) 15 ml PRN AFTMEALHC PRN PO DYSPEPSIA; Start 04/22/17 at 21:00; Status UNV Magnesium Hydroxide (Milk Of Magnesia) 2,400 mg PRN QHS PRN PO CONSTIPATION; Start 04/22/17 at 21:00 Clonazepam (KlonoPIN) 0.5 mg PRN DAILY PRN PO ANXIETY; Start 04/22/17 at 21:00 Clonazepam (KlonoPIN) 0.5 mg TID PO Last administered on 04/24/17 19:47; Start 04/22/17 at 21:30 Divalproex Sodium (Depakote) 250 mg TID PO Last administered on 04/24/17 19:46 ; Start 04/22/17 at 21:30 Sertraline HCl (Zoloft) 150 mg DAILY PO Last administered on 04/23/17 08:10; Start 04/23/17 at 09:00; Stop 04/23/17 at 20:15; Status DC Albuterol Sulfate (Ventolin) 2.5 mg STK-MED ONCE .ROUTE ; Start 04/22/17 at 18: 56; Stop 04/22/17 at 20:56; Status DC Budesonide (Pulmicort) 0.5 mg STK-MED ONCE .ROUTE ; Start 04/22/17 at 18:56; Stop 04/22/17 at 20:56; Status DC Albuterol Sulfate (Ventolin) 2.5 mg PRN Q2HR PRN NEB WHEEZING; Start 04/22/17 at 21:00 Aspirin (Aspirin Enteric Coated) 81 mg DAILY PO Last administered on 04/24/17 08:27; Start 04/23/17 at 09:00 Budesonide (Pulmicort) 0.5 mg BID NEB Last administered on 04/24/17 20:27; Start 04/22/17 at 21:00 Calcium Polycarbophil (Fibercon) 1,250 mg DAILY PO Last administered on 08:25; Start 04/23/17 at 09:00 Vitamin D (Vitamin D3) 2,000 unit DAILY PO Last administered on 04/24/17 08:24 ; Start 04/23/17 at 09:00 Clonidine HCl (Catapres) 0.1 mg TID PO Last administered on 04/24/17 19:45; Start 04/22/17 at 21:30 Guaifenesin (Mucinex Er) 600 mg Q12HR PO Last administered on 04/24/17 19:45; Start 04/22/17 at 21:30 Hydralazine HCl (Apresoline) 50 mg TID PO Last administered on 04/24/17 19:46 ; Start 04/22/17 at 21:30 Hydromorphone HCl (Dilaudid) 2 mg PRN Q3HRS PRN PO PAIN Last administered on 12:21; Start 04/22/17 at 21:00 Insulin Aspart (NovoLOG) 6 units TIDWMEALS SQ Last administered on 04/24/17 17 :05; Start 04/23/17 at 08:00 Albuterol/ Ipratropium (Duoneb) 3 ml QID NEB Last administered on 04/22/17 21: 00; Start 04/22/17 at 21:00; Stop 04/22/17 at 21:23; Status DC Levothyroxine Sodium (Synthroid) 50 mcg DAILY07 PO Last administered on 08:27; Start 04/23/17 at 07:00 Losartan Potassium (Cozaar) 50 mg DAILY PO Last administered on 04/24/17 08:27 ; Start 04/23/17 at 09:00 Al Hydroxide/Mg Hydroxide (Mylanta Plus Xs) 15 ml PRN Q4HRS PRN PO DYSPEPSIA; Start 04/22/17 at 21:00 Nitroglycerin (Nitrostat) 0.4 mg PRN Q5MIN PRN SL CHEST PAIN; Start 04/22/17 at 21:00 Potassium Chloride (Klor-Con) 40 meq DAILY PO Last administered on 04/24/17 08 :25; Start 04/23/17 at 09:00 Senna/Docusate Sodium (Senna Plus) 1 tab DAILY PO Last administered on 08:25; Start 04/23/17 at 09:00 Theophylline (Theophylline Extended Release) 200 mg BID PO Last administered on 04/24/17 19:47; Start 04/22/17 at 21:30 Torsemide (Demadex) 40 mg DAILY PO Last administered on 04/24/17 08:33; Start 04/23/17 at 09:00 Warfarin Sodium (Coumadin) 4 mg DAILY16 PO Last administered on 04/24/17 17:02 ; Start 04/23/17 at 16:00 Atorvastatin Calcium (Lipitor) 80 mg QHS PO Last administered on 04/24/17 19: 45; Start 04/23/17 at 21:00 Atenolol (Tenormin) 100 mg DAILY PO Last administered on 04/24/17 08:26; Start 04/23/17 at 09:00 Calcium/Vitamin D (Oscal D 500mg/ 200uts) 1 tab BIDWMEALS PO Last administered on 04/24/17 17:02; Start 04/23/17 at 08:00 Non-Formulary Medication 20 mcg Q12HR NEB ; Start 04/22/17 at 21:00; Status UNV Insulin Detemir (Levemir) 8 units QHS SQ Last administered on 04/24/17 19:48; Start 04/22/17 at 22:00 Isosorbide Mononitrate (Imdur) 120 mg DAILY PO Last administered on 04/24/17 08:24; Start 04/23/17 at 09:00 Albuterol/ Ipratropium (Duoneb) 3 ml RTQID NEB Last administered on 04/24/17 20:27; Start 04/23/17 at 08:00 Warfarin Sodium (Coumadin Per Physician) 1 each PRN DAILY PRN MC SEE COMMENTS; Start 04/22/17 at 21:45; Stop 04/23/17 at 20:23; Status DC Temazepam (Restoril) 15 mg PRN QHS PRN PO INSOMNIA, MAY REPEAT X1 Last administered on 04/24/17 19:46; Start 04/22/17 at 22:30 Olanzapine (ZyPREXA ZYDIS) 5 mg PRN Q2HR PRN PO Agitation Last administered on 04/22/17 22:38; Start 04/22/17 at 22:30 Albuterol/ Ipratropium (Duoneb) 3 ml STK-MED ONCE .ROUTE ; Start 04/23/17 at 02: 56; Stop 04/23/17 at 04:57; Status DC Warfarin Sodium (Coumadin Per Pharmacy) 1 each PRN DAILY PRN MC SEE COMMENTS; Start 04/23/17 at 20:00 Duloxetine HCl (Cymbalta) 30 mg DAILY PO Last administered on 04/24/17 08:33; Start 04/24/17 at 09:00 Active Scripts Active Reported Vitamin D3 (Cholecalciferol (Vitamin D3)) 1,000 Unit Tablet 2,000 Unit PO DAILY Torsemide 20 Mg Tablet 40 Mg PO DAILY Theochron (Theophylline Anhydrous) 200 Mg Tab.er.12h 200 Mg PO BID Zoloft (Sertraline Hcl) 100 Mg Tablet 150 Mg PO DAILY Senna-S Tablet (Sennosides/Docusate Sodium) 1 Each Tablet 1 Tab PO DAILY Klor-Con M20 (Potassium Chloride) 20 Meq Tab.er.prt 40 Meq PO DAILY Novolog Flexpen (Insulin Aspart) 100 Unit/1 Ml Insuln.pen 6 Unit SQ TIDWMEALS NITROGLYCERIN SubLingual (Nitroglycerin) 0.4 Mg Tab.subl 0.4 Mg SL PRN Q5MIN PRN Mag-Al Plus Xs Suspension (Mag Hydrox/Al Hydrox/Simeth) 30 Ml Oral.susp 15 Ml PO PRN Q4HRS PRN Mucinex (Guaifenesin) 600 Mg Tablet.er 600 Mg PO Q12HR Losartan Potassium 50 Mg Tablet 50 Mg PO DAILY Levothyroxine Sodium 50 Mcg Tablet 50 Mcg PO DAILY07 Lantus Solostar (Insulin Glargine,Hum.rec.anlog) 100 Unit/1 Ml Insuln.pen 8 Unit SQ QHS Klonopin (Clonazepam) 0.5 Mg Tablet 0.5 Mg PO TID Klonopin (Clonazepam) 0.5 Mg Tablet 0.5 Mg PO PRN DAILY PRN Isosorbide Mononitrate Er (Isosorbide Mononitrate) 120 Mg Tab.er.24h 120 Mg PO DAILY Hydralazine Hcl 50 Mg Tablet 50 Mg PO TID Perforomist (Formoterol Fumarate) 20 Mcg/2 Ml Vial.neb 20 Mcg NEB Q12HR Fibercon (Calcium Polycarbophil) 625 Mg Tablet 1,250 Mg PO DAILY Duoneb 0.5-3(2.5) Mg/3 Ml (Albuterol/Ipratropium) 3 Ml Ampul.neb 3 Ml NEB QID Dilaudid (Hydromorphone Hcl) 2 Mg Tablet 2 Mg PO PRN Q3HRS PRN Depakote (Divalproex Sodium) 250 Mg Tablet.dr 250 Mg PO TID Coumadin (Warfarin Sodium) 4 Mg Tablet 4 Mg PO DAILY16 Clonidine Hcl 0.1 Mg Tablet 0.1 Mg PO TID Calcium 600 + Vit D 200 Tablet (Calcium Carbonate/Vitamin D3) 1 Each Tablet 1 Tab PO BID Budesonide 0.5 Mg/2 Ml Ampul.neb 0.5 Mg IH BID Bisoprolol Fumarate 10 Mg Tablet 10 Mg PO DAILY Atorvastatin Calcium 80 Mg Tablet 80 Mg PO QHS Aspir-Low (Aspirin) 81 Mg Tablet.dr 81 Mg PO DAILY Albuterol Sulfate Neb Soln (Albuterol Sulfate) 2.5 Mg/3 Ml Vial.neb 2.5 Mg NEB PRN Q2HR PRN Diagnosis: Problems: (1) Anxiety disorder (2) Bipolar affective disorder, mixed (3) Major depressive disorder, recurrent episode (4) Impulse control disorder LISA MAGANA MD Apr 24, 2017 22:37
[2017-04-25] MEDS: LEVOTHYROXINE 50 MCG TABLET PO SCH (05:44)
[2017-04-25] MEDS: IPRATRPIUM/ALBUTEROL 0.5/2.5MG 3 ML NEBU. NEB SCH ×4 (06:06→20:34)
[2017-04-25 06:13] VITALS: BP 150/94
[2017-04-25] MEDS: CALCIUM POLYCARBOPHIL 625 MG TABLET PO SCH (07:57)
[2017-04-25] MEDS: DULoxetine HCL 30 MG CAPSULE.DR PO SCH (07:58)
[2017-04-25] MEDS: cloNIDine HCL 0.1 MG TABLET PO SCH ×3 (07:59→19:43)
[2017-04-25] MEDS: CHOLECALCIFEROL (VITAMIN D3) 1,000 UNIT TABLET PO SCH (07:59)
[2017-04-25] MEDS: DIVALPROEX SODIUM 250 MG TABLET.DR. PO SCH ×3 (07:59→19:42)
[2017-04-25] MEDS: ISOSORBIDE MONONITRATE ER 30 MG TAB.ER.24H PO SCH (07:59)
[2017-04-25] MEDS: SENNOSIDES/DOCUSATE 8.6/50MG TABLET. PO SCH (07:59)
[2017-04-25] MEDS: ASPIRIN ENTERIC COATED 81 MG TABLET.DR. PO SCH (07:59)
[2017-04-25] MEDS: ATENOLOL 25 MG TABLET PO SCH (08:00)
[2017-04-25] MEDS: CALCIUM CARB/VIT D3 500/200 TABLET PO SCH ×2 (08:01→17:32)
[2017-04-25] MEDS: POTASSIUM CHLORIDE 20 MEQ TABLET.ER. PO SCH (08:01)
[2017-04-25] MEDS: HYDROmorphone 2 MG TABLET PO PRN ×2 (08:01→13:32)
[2017-04-25] MEDS: LOSARTAN 50 MG TABLET. PO SCH (08:04)
[2017-04-25] MEDS: TORSEMIDE 20 MG TABLET. PO SCH (08:04)
[2017-04-25] MEDS: clonazePAM 0.5 MG TABLET PO SCH ×3 (08:04→19:43)
[2017-04-25] MEDS: THEOPHYLLINE ANHYDROUS 400 MG TABLET.ER. PO SCH ×2 (08:06→19:45)
[2017-04-25] MEDS: INSULIN ASPART 300 UNITS/3 ML INSULN.PEN SQ SCH ×3 (08:11→17:40)
--- NOTE | 2017-04-25 08:20 | NUR ---
Behavior Intervention Response and Plan: BIRP Note: Behavior: Assumed Care of patient, patient located in Patient Room at shift change. Patient exhibited the following behavior Calm, Disorganized, Appropriate. Brief assessment on rounds of vital signs, medication needs, lab studies, and pain. Treatment plan problems . Intervention: Patient assessed and the following interventions initiated safety checks 15 Minute Checks Cognitive Assessment , Head to toe Assessment , Medications. Response: After interactions and interventions patient responded in the following manner, Cooperative , Compliant ,Able to Focus on Task. Continue to assess behaviors and condition will continue to monitor throughout the shift as needed. Patient educated on ADL's, and hand hygiene. Plan: Continue to monitor Master Treatment Plan for patient's progress toward short term goals of Improved Mood, Decreased Anxiety, long term care social worker goals to return to previous living setting vs placement. Continue to assess patient for changes in above assessment. Monitor for medication needs, pain, and safety concerns. Hourly rounding performed to ensure safe environment.
[2017-04-25] MEDS: BUDESONIDE 0.5 MG/2 ML NEBU NEB SCH ×2 (09:16→20:34)
--- NOTE | 2017-04-25 09:37 | NUR ---
Patient is reporting pain 7/10 in back and R knee. Patient requested PRN pain medication. Administered PRN Dilaudid. Will reassess pain level in one hour.
--- NOTE | 2017-04-25 10:37 | NUR ---
Patients pain reassessed patient reports no pain at this time.
--- NOTE | 2017-04-25 11:40 | NUR ---
Pharmacy Warfarin Dosing Note S:Pharmacy consulted to assist with anticoagulation therapy started 04/22/17 with target INR: 2 -3 O:ISHMAEL MCKEON is a 56 year old M with Atrial Fibrillation LABS: Last INR: 2.1 Last HGB: 12.7 Last HCT: 38 Last PLT: 168 Last dose of 4 mg given on 04/24/17 at 1600 Previous Regimen: Takes Coumadin 4mg po daily at home. Vitamin K given: No Drug Interaction Changes: No A:INR is within theb desired range. Target range for this patient is: 2 -3 P: Warfarin dose: Continue Coumadin 4mg po daily. Bridge Therapy: None Next INR due 05/02/17. Pharmacy anticoagulation service will continue to follow. LOLA IVORY, [facility] 04/25/17 [id number]
--- NOTE | 2017-04-25 13:32 | NUR ---
Patient requested PRN pain medication at lunch again reporting pain in back and R knee. Administered PRN Dilaudid. Will reassess pain level in one hour.
[2017-04-25 15:54] VITALS: BP 110/75
[2017-04-25] MEDS: WARFARIN 4 MG TABLET. PO SCH (17:32)
--- NOTE | 2017-04-25 19:40 | PDOC ---
Exam Duong Demential Exam: Duong Note: Please also refer to the separate dictated note~for this date of service dictated separately.~Patient seen individually. Discussed the patient with Nursing staff reviewed the chart.~Reviewed interim history and current functioning. Reviewed vital signs,~Labs/ Radiology~and current medications noted below. Continue current treatment with the changes noted in the dictated addendum note Assessment: Vital Signs: Vital Signs Date Time Temp Pulse Resp B/P (MAP) Pulse Ox O2 Delivery O2 Flow Rate FiO2 04/25/17 16:53 96 Room Air 04/25/17 15:54 99.0 80 18 110/75 (87) I&O Intake and Output 04/26/17 07:00 Intake Total 1020 ml Balance 1020 ml Intake Oral 1020 ml Labs: Laboratory Tests Test 04/25/17 07:17 04/25/17 07:43 04/25/17 11:19 04/25/17 16:25 Glucose (Fingerstick) 104 mg/dL (70-99) H 176 mg/dL (70-99) H 101 mg/dL (70-99) H Prothrombin Time 21.2 SEC (9.4-11.4) H Prothrombin Time INR 2.1 (0.9-1.1) H Current Medications: Meds: Current Medications Clonazepam (KlonoPIN) 0.5 mg 1X ONCE PO ; Start 04/22/17 at 20:15; Stop at 20:15; Status DC Clonazepam (KlonoPIN) 0.5 mg 1X ONCE PO Last administered on 04/22/17t 20:20; Start 04/22/17 at 20:15; Stop 04/22/17 at 20:16; Status DC Acetaminophen (Tylenol) 650 mg PRN Q6HRS PRN PO PAIN / TEMP; Start 04/22/17 at 21:00 Multi-Ingredient Ointment (Analgesic [place]) 1 ismael PRN QID PRN TP MUSCLE PAIN; Start 04/22/17 at 21:00 Al Hydroxide/Mg Hydroxide (Mylanta Plus Xs) 15 ml PRN AFTMEALHC PRN PO DYSPEPSIA; Start 04/22/17 at 21:00; Status UNV Magnesium Hydroxide (Milk Of Magnesia) 2,400 mg PRN QHS PRN PO CONSTIPATION; Start 04/22/17 at 21:00 Clonazepam (KlonoPIN) 0.5 mg PRN DAILY PRN PO ANXIETY; Start 04/22/17 at 21:00 Clonazepam (KlonoPIN) 0.5 mg TID PO Last administered on 04/25/17 13:31; Start 04/22/17 at 21:30 Divalproex Sodium (Depakote) 250 mg TID PO Last administered on 04/25/17 13:31 ; Start 04/22/17 at 21:30 Sertraline HCl (Zoloft) 150 mg DAILY PO Last administered on 04/23/17 08:10; Start 04/23/17 at 09:00; Stop 04/23/17 at 20:15; Status DC Albuterol Sulfate (Ventolin) 2.5 mg STK-MED ONCE .ROUTE ; Start 04/22/17 at 18: 56; Stop 04/22/17 at 20:56; Status DC Budesonide (Pulmicort) 0.5 mg STK-MED ONCE .ROUTE ; Start 04/22/17 at 18:56; Stop 04/22/17 at 20:56; Status DC Albuterol Sulfate (Ventolin) 2.5 mg PRN Q2HR PRN NEB WHEEZING; Start 04/22/17 at 21:00 Aspirin (Aspirin Enteric Coated) 81 mg DAILY PO Last administered on 04/25/17 07:59; Start 04/23/17 at 09:00 Budesonide (Pulmicort) 0.5 mg BID NEB Last administered on 04/25/17 09:16; Start 04/22/17 at 21:00 Calcium Polycarbophil (Fibercon) 1,250 mg DAILY PO Last administered on 07:57; Start 04/23/17 at 09:00 Vitamin D (Vitamin D3) 2,000 unit DAILY PO Last administered on 04/25/17 07:59 ; Start 04/23/17 at 09:00 Clonidine HCl (Catapres) 0.1 mg TID PO Last administered on 04/25/17 13:31; Start 04/22/17 at 21:30 Guaifenesin (Mucinex Er) 600 mg Q12HR PO Last administered on 04/25/17 08:01; Start 04/22/17 at 21:30 Hydralazine HCl (Apresoline) 50 mg TID PO Last administered on 04/25/17 13:31 ; Start 04/22/17 at 21:30 Hydromorphone HCl (Dilaudid) 2 mg PRN Q3HRS PRN PO PAIN Last administered on 13:32; Start 04/22/17 at 21:00 Insulin Aspart (NovoLOG) 6 units TIDWMEALS SQ Last administered on 04/25/17 17 :40; Start 04/23/17 at 08:00 Albuterol/ Ipratropium (Duoneb) 3 ml QID NEB Last administered on 04/22/17 21: 00; Start 04/22/17 at 21:00; Stop 04/22/17 at 21:23; Status DC Levothyroxine Sodium (Synthroid) 50 mcg DAILY07 PO Last administered on 05:44; Start 04/23/17 at 07:00 Losartan Potassium (Cozaar) 50 mg DAILY PO Last administered on 04/25/17 08:04 ; Start 04/23/17 at 09:00 Al Hydroxide/Mg Hydroxide (Mylanta Plus Xs) 15 ml PRN Q4HRS PRN PO DYSPEPSIA; Start 04/22/17 at 21:00 Nitroglycerin (Nitrostat) 0.4 mg PRN Q5MIN PRN SL CHEST PAIN; Start 04/22/17 at 21:00 Potassium Chloride (Klor-Con) 40 meq DAILY PO Last administered on 04/25/17 08 :01; Start 04/23/17 at 09:00 Senna/Docusate Sodium (Senna Plus) 1 tab DAILY PO Last administered on 07:59; Start 04/23/17 at 09:00 Theophylline (Theophylline Extended Release) 200 mg BID PO Last administered on 04/25/17 08:06; Start 04/22/17 at 21:30 Torsemide (Demadex) 40 mg DAILY PO Last administered on 04/25/17 08:04; Start 04/23/17 at 09:00 Warfarin Sodium (Coumadin) 4 mg DAILY16 PO Last administered on 04/25/17 17:32 ; Start 04/23/17 at 16:00 Atorvastatin Calcium (Lipitor) 80 mg QHS PO Last administered on 04/24/17 19: 45; Start 04/23/17 at 21:00 Atenolol (Tenormin) 100 mg DAILY PO Last administered on 04/25/17 08:00; Start 04/23/17 at 09:00 Calcium/Vitamin D (Oscal D 500mg/ 200uts) 1 tab BIDWMEALS PO Last administered on 04/25/17 17:32; Start 04/23/17 at 08:00 Non-Formulary Medication 20 mcg Q12HR NEB ; Start 04/22/17 at 21:00; Status UNV Insulin Detemir (Levemir) 8 units QHS SQ Last administered on 04/24/17 19:48; Start 04/22/17 at 22:00 Isosorbide Mononitrate (Imdur) 120 mg DAILY PO Last administered on 04/25/17 07:59; Start 04/23/17 at 09:00 Albuterol/ Ipratropium (Duoneb) 3 ml RTQID NEB Last administered on 04/25/17 16:50; Start 04/23/17 at 08:00 Warfarin Sodium (Coumadin Per Physician) 1 each PRN DAILY PRN MC SEE COMMENTS; Start 04/22/17 at 21:45; Stop 04/23/17 at 20:23; Status DC Temazepam (Restoril) 15 mg PRN QHS PRN PO INSOMNIA, MAY REPEAT X1 Last administered on 04/24/17 19:46; Start 04/22/17 at 22:30 Olanzapine (ZyPREXA ZYDIS) 5 mg PRN Q2HR PRN PO Agitation Last administered on 04/22/17 22:38; Start 04/22/17 at 22:30 Albuterol/ Ipratropium (Duoneb) 3 ml STK-MED ONCE .ROUTE ; Start 04/23/17 at 02: 56; Stop 04/23/17 at 04:57; Status DC Warfarin Sodium (Coumadin Per Pharmacy) 1 each PRN DAILY PRN MC SEE COMMENTS Last administered on 04/25/17 11:39; Start 04/23/17 at 20:00 Duloxetine HCl (Cymbalta) 30 mg DAILY PO Last administered on 04/25/17 07:58; Start 04/24/17 at 09:00 Active Scripts Active Reported Vitamin D3 (Cholecalciferol (Vitamin D3)) 1,000 Unit Tablet 2,000 Unit PO DAILY Torsemide 20 Mg Tablet 40 Mg PO DAILY Theochron (Theophylline Anhydrous) 200 Mg Tab.er.12h 200 Mg PO BID Zoloft (Sertraline Hcl) 100 Mg Tablet 150 Mg PO DAILY Senna-S Tablet (Sennosides/Docusate Sodium) 1 Each Tablet 1 Tab PO DAILY Klor-Con M20 (Potassium Chloride) 20 Meq Tab.er.prt 40 Meq PO DAILY Novolog Flexpen (Insulin Aspart) 100 Unit/1 Ml Insuln.pen 6 Unit SQ TIDWMEALS NITROGLYCERIN SubLingual (Nitroglycerin) 0.4 Mg Tab.subl 0.4 Mg SL PRN Q5MIN PRN Mag-Al Plus Xs Suspension (Mag Hydrox/Al Hydrox/Simeth) 30 Ml Oral.susp 15 Ml PO PRN Q4HRS PRN Mucinex (Guaifenesin) 600 Mg Tablet.er 600 Mg PO Q12HR Losartan Potassium 50 Mg Tablet 50 Mg PO DAILY Levothyroxine Sodium 50 Mcg Tablet 50 Mcg PO DAILY07 Lantus Solostar (Insulin Glargine,Hum.rec.anlog) 100 Unit/1 Ml Insuln.pen 8 Unit SQ QHS Klonopin (Clonazepam) 0.5 Mg Tablet 0.5 Mg PO TID Klonopin (Clonazepam) 0.5 Mg Tablet 0.5 Mg PO PRN DAILY PRN Isosorbide Mononitrate Er (Isosorbide Mononitrate) 120 Mg Tab.er.24h 120 Mg PO DAILY Hydralazine Hcl 50 Mg Tablet 50 Mg PO TID Perforomist (Formoterol Fumarate) 20 Mcg/2 Ml Vial.neb 20 Mcg NEB Q12HR Fibercon (Calcium Polycarbophil) 625 Mg Tablet 1,250 Mg PO DAILY Duoneb 0.5-3(2.5) Mg/3 Ml (Albuterol/Ipratropium) 3 Ml Ampul.neb 3 Ml NEB QID Dilaudid (Hydromorphone Hcl) 2 Mg Tablet 2 Mg PO PRN Q3HRS PRN Depakote (Divalproex Sodium) 250 Mg Tablet.dr 250 Mg PO TID Coumadin (Warfarin Sodium) 4 Mg Tablet 4 Mg PO DAILY16 Clonidine Hcl 0.1 Mg Tablet 0.1 Mg PO TID Calcium 600 + Vit D 200 Tablet (Calcium Carbonate/Vitamin D3) 1 Each Tablet 1 Tab PO BID Budesonide 0.5 Mg/2 Ml Ampul.neb 0.5 Mg IH BID Bisoprolol Fumarate 10 Mg Tablet 10 Mg PO DAILY Atorvastatin Calcium 80 Mg Tablet 80 Mg PO QHS Aspir-Low (Aspirin) 81 Mg Tablet.dr 81 Mg PO DAILY Albuterol Sulfate Neb Soln (Albuterol Sulfate) 2.5 Mg/3 Ml Vial.neb 2.5 Mg NEB PRN Q2HR PRN Diagnosis: Problems: (1) Bipolar disorder (2) Behavioral problem (3) Anxiety disorder (4) Impulse control disorder (5) Major depressive disorder, recurrent episode (6) Bipolar affective disorder, mixed LISA MAGANA MD Apr 25, 2017 19:40
[2017-04-25] MEDS: ATORVASTATIN CALCIUM 20 MG TABLET PO SCH (19:41)
[2017-04-25] MEDS: INSULIN DETEMIR 300 UNITS/3 ML INSULN.PEN. SQ SCH (19:47)
[2017-04-25] MEDS: TEMAZEPAM 15 MG CAPSULE PO PRN (19:58)
--- NOTE | 2017-04-25 21:38 | NUR ---
Behavior Intervention Response and Plan: BIRP Note: Behavior: Assumed Care of patient, patient located in Patient Room at shift change. Patient exhibited the following behavior Calm, Interactive, Social. Brief assessment on rounds of vital signs, medication needs, lab studies, and pain. Treatment plan problems 1-3. Intervention: Patient assessed and the following interventions initiated safety checks 15 Minute Checks Head to toe Assessment , Medications , Nutrition. Response: After interactions and interventions patient responded in the following manner, Calm and Cooperative. Continue to assess behaviors and condition will continue to monitor throughout the shift as needed. Patient educated on ADL's, and hand hygiene. Plan: Continue to monitor Master Treatment Plan for patient's progress toward short term goals of Improved Mood, No harm To self/ others, intermodal customer service goals to return to previous living setting vs placement. Continue to assess patient for changes in above assessment. Monitor for medication needs, pain, and safety concerns. Hourly rounding performed to ensure safe environment.
--- NOTE | 2017-04-26 00:14 | PN ---
DATE: 04/24/2017 This is a late entry for date of service 04/24/2017 and covers elements not covered in my initial note of 04/24/217. SUBJECTIVE: I met with the patient the evening of 04/24/2017 for this evaluation. Overall, the patient has not voiced any suicidal ideation. In fact, he states his mood is better and he was questioning me at some length as to how this could be happening just a day after starting Cymbalta. We discussed the question of bipolar disorder and how in patients with bipolar, depressed, there can be a more rapid response to antidepressants. It sometimes transforms into manic symptoms if the mood stabilizers are not adequate. I had a lengthy discussion about pros and cons of his entire treatment plan. I answered his many questions. REVIEW OF SYSTEMS: No CV, , pulmonary, eye, ENT system symptoms on review. MENTAL STATUS EXAM: Reasonably oriented. Speech is coherent. Per nursing report, he is "upbeat, says he feels better today." Abstraction fair, computation impaired, language function intact. Attention span somewhat short. Mood and affect is improved, verbal. Thought processes goal directed. No active suicidal ideation. LABORATORY DATA: Reviewed. IMPRESSION: Unchanged from initial note. PLAN: Continue psychotropics mentioned in the initial note. Reviewed drug interactions, risk/benefit ratio favors no further change. Valproic acid level is 64. MAN Mery MAGANA MD DR: HARDIK/sandro JOB#: [id number] / [id number]
[2017-04-26] MEDS: IPRATRPIUM/ALBUTEROL 0.5/2.5MG 3 ML NEBU. NEB SCH ×4 (05:38→20:47)
[2017-04-26] MEDS: LEVOTHYROXINE 50 MCG TABLET PO SCH (06:03)
[2017-04-26 06:08] VITALS: BP 123/65
[2017-04-26] MEDS: CALCIUM CARB/VIT D3 500/200 TABLET PO SCH ×2 (07:26→16:19)
[2017-04-26] MEDS: THEOPHYLLINE ANHYDROUS 400 MG TABLET.ER. PO SCH ×2 (07:31→19:47)
[2017-04-26] MEDS: POTASSIUM CHLORIDE 20 MEQ TABLET.ER. PO SCH (07:32)
[2017-04-26] MEDS: ASPIRIN ENTERIC COATED 81 MG TABLET.DR. PO SCH (07:32)
[2017-04-26] MEDS: TORSEMIDE 20 MG TABLET. PO SCH (07:32)
[2017-04-26] MEDS: DIVALPROEX SODIUM 250 MG TABLET.DR. PO SCH ×3 (07:32→19:45)
[2017-04-26] MEDS: ATENOLOL 25 MG TABLET PO SCH (07:33)
[2017-04-26] MEDS: CHOLECALCIFEROL (VITAMIN D3) 1,000 UNIT TABLET PO SCH (07:33)
[2017-04-26] MEDS: clonazePAM 0.5 MG TABLET PO SCH ×3 (07:33→19:45)
[2017-04-26] MEDS: LOSARTAN 50 MG TABLET. PO SCH (07:34)
[2017-04-26] MEDS: ISOSORBIDE MONONITRATE ER 30 MG TAB.ER.24H PO SCH (07:34)
[2017-04-26] MEDS: CALCIUM POLYCARBOPHIL 625 MG TABLET PO SCH (07:34)
[2017-04-26] MEDS: DULoxetine HCL 30 MG CAPSULE.DR PO SCH (07:35)
[2017-04-26] MEDS: SENNOSIDES/DOCUSATE 8.6/50MG TABLET. PO SCH (07:35)
[2017-04-26] MEDS: cloNIDine HCL 0.1 MG TABLET PO SCH ×3 (07:35→19:44)
[2017-04-26] MEDS: INSULIN ASPART 300 UNITS/3 ML INSULN.PEN SQ SCH ×3 (08:07→17:00)
--- NOTE | 2017-04-26 09:10 | NUR ---
SW met with pt 1:1; pt denies any SI/HI states he feels better regarding SI thoughts. Pt denies ever going to do actual harm to himself. SW spoke with pt about goals regarding Short-term and Long-term goals. Pt states he wants to leave the facility and return to the community he understands that he needs to become healthier and stronger prior to returning to the community. Pt states prior to coming into the hospital he spent most of his time in bed watching TV. Pt started to grind his teeth and look away from food writer when SW asked what he could do differently. Pt appeared frustrated that SW was asking questions around his prior activity level and what changes pt could make. Pt stated he could go out more, SW asked pt to give two short term goals, pt reports to get stronger, SW and pt discussed options around this. Pt talked about working out with a staff member. SW asked if this is a feasible plan or will staff member be too busy to workout. Pt face turned red, and he turned away from this food writer with teeth grinding a bit. SW explained would not want pt to return to facility and return to his habits that he had prior as this would not help him obtain his buttermaker helper goal of moving out. Pt states he is planning on going out in the community 2x weekly as well as working out. SW will provide pt a calander, pt states his SW at facility will help him be accountable for working out and any other goals set to make sure he completes them weekly. Pt and SW discussed obstacles for his goals. Pt talked about "just being easier not to do anything" SW also provided pt information regarding Money follows the person and PD waiver. Pt states he has a case worker with [facility] and will contact her after he transitions back to facility.
[2017-04-26] MEDS: HYDROmorphone 2 MG TABLET PO PRN ×3 (09:19→20:04)
--- NOTE | 2017-04-26 09:34 | NUR ---
Behavior Intervention Response and Plan: BIRP Note: Behavior: Assumed Care of patient, patient located in Dining Room at shift change. Patient exhibited the following behavior Calm, Cooperative, Social. Brief assessment on rounds of vital signs, medication needs, lab studies, and pain. Treatment plan problems 1 and 2. Intervention: Patient assessed and the following interventions initiated safety checks 15 Minute Checks Cognitive Assessment , Head to toe Assessment , Head to toe Assessment. Response: After interactions and interventions patient responded in the following manner, Interactive , Appropriate ,Appropriate. Continue to assess behaviors and condition will continue to monitor throughout the shift as needed. Patient educated on ADL's, and hand hygiene. Plan: Continue to monitor Master Treatment Plan for patient's progress toward short term goals of Decreased Anxiety, No harm To self/ others, continuous churn buttermaker goals to return to previous living setting vs placement. Continue to assess patient for changes in above assessment. Monitor for medication needs, pain, and safety concerns. Hourly rounding performed to ensure safe environment.
--- NOTE | 2017-04-26 10:00 | NUR ---
THERAPEUTIC RECREATION GROUP NOTE TITLE :Fall Festival Decoration ACTIVITY : Arts/ Crafts GOAL : Increase socialization, fine motor skills, creativity DURATION : 90 Minutes RESPONSE : Full participation. Pt. was helpful, tried to engage others, initiated conversations, focused on his project. He was sarcastic at times, appearing to get a laugh or smile for a person. He was agreeable and mostly calm the entire session. He was in and out of group a few times.
--- NOTE | 2017-04-26 11:30 | NUR ---
THERAPEUTIC RECREATION GROUP NOTE TITLE :Movement to Music: Flexibility ACTIVITY : Movement/ Exercise GOAL : Increase morale, attention, flexibility. Decrease stress/anxiety. DURATION : 30 Minutes RESPONSE : Full participation. Pt. followed along with all the moves, not needed prompting for most of the session. RT met with Pt. towards the end for a breathing treatment.
[2017-04-26] MEDS: BUDESONIDE 0.5 MG/2 ML NEBU NEB SCH ×2 (11:53→20:47)
--- NOTE | 2017-04-26 14:00 | NUR ---
THERAPEUTIC RECREATION GROUP NOTE TITLE :Picture Puzzles ACTIVITY : Cognitive Stimulation GOAL : Maintain or improve cognitive functioning and memory. DURATION : 60 Minutes RESPONSE : Full participation. Pt. was able to work independently and solve most puzzles on his own. He needed occasional assistance and asked for help at times. He was slightly frustrated with other patients and wondered about their care.
--- NOTE | 2017-04-26 15:20 | NUR ---
Group Note [facility] Group Type Enthusiasm and Attitude Start Time: 1:10 End Time: 2:00pm Problem: Depression Purpose: Increase Motivation,increased positivity, socialization, elevate mood, express feelings, Level of Participation: High Behaviors or Symptoms Observed: Pt answered all questions and was actively engaged in group discussion. Interventions: Reframing Response: Pt remained engaged in group and encouraged other pts to participate in discussion. Plan: Group Participation Additional Comments:
[2017-04-26 16:13] VITALS: BP 152/91
[2017-04-26] MEDS: WARFARIN 4 MG TABLET. PO SCH (16:20)
--- NOTE | 2017-04-26 19:30 | NUR ---
Behavior Intervention Response and Plan: BIRP Note: Behavior: Assumed Care of patient, patient located in Patient Room at shift change. Patient exhibited the following behavior Calm, Cooperative, Social. Brief assessment on rounds of vital signs, medication needs, lab studies, and pain. Treatment plan problems 1 and 2. Intervention: Patient assessed and the following interventions initiated safety checks 15 Minute Checks Cognitive Assessment , Head to toe Assessment , Head to toe Assessment. Response: After interactions and interventions patient responded in the following manner, Interactive , Appropriate, Calm. Continue to assess behaviors and condition will continue to monitor throughout the shift as needed. Patient educated on ADL's, and hand hygiene. Plan: Continue to monitor Master Treatment Plan for patient's progress toward short term goals of Decreased Anxiety, No harm To self/ others, termite exterminator helper goals to return to previous living setting vs placement. Continue to assess patient for changes in above assessment. Monitor for medication needs, pain, and safety concerns. Hourly rounding performed to ensure safe environment.
--- NOTE | 2017-04-26 19:40 | PDOC ---
Exam Duong Demential Exam: Duong Note: Please also refer to the separate dictated note~for this date of service dictated separately.~Patient seen individually. Discussed the patient with Nursing staff reviewed the chart.~Reviewed interim history and current functioning. Reviewed vital signs,~Labs/ Radiology~and current medications noted below. Continue current treatment with the changes noted in the dictated addendum note Assessment: Vital Signs: Vital Signs Date Time Temp Pulse Resp B/P (MAP) Pulse Ox O2 Delivery O2 Flow Rate FiO2 04/26/17 17:10 98 Room Air 04/26/17 17:01 20 04/26/17 16:13 97.3 84 152/91 (111) I&O Intake and Output 04/27/17 07:00 Intake Total 1440 ml Balance 1440 ml Intake Oral 1440 ml Labs: Laboratory Tests Test 04/25/17 19:44 04/26/17 07:34 04/26/17 11:27 Glucose (Fingerstick) 133 mg/dL (70-99) H 98 mg/dL (70-99) 179 mg/dL (70-99) H Current Medications: Meds: Current Medications Clonazepam (KlonoPIN) 0.5 mg 1X ONCE PO ; Start 04/22/17 at 20:15; Stop at 20:15; Status DC Clonazepam (KlonoPIN) 0.5 mg 1X ONCE PO Last administered on 04/22/17t 20:20; Start 04/22/17 at 20:15; Stop 04/22/17 at 20:16; Status DC Acetaminophen (Tylenol) 650 mg PRN Q6HRS PRN PO PAIN / TEMP; Start 04/22/17 at 21:00 Multi-Ingredient Ointment (Analgesic [place]) 1 ismael PRN QID PRN TP MUSCLE PAIN; Start 04/22/17 at 21:00 Al Hydroxide/Mg Hydroxide (Mylanta Plus Xs) 15 ml PRN AFTMEALHC PRN PO DYSPEPSIA; Start 04/22/17 at 21:00; Status UNV Magnesium Hydroxide (Milk Of Magnesia) 2,400 mg PRN QHS PRN PO CONSTIPATION; Start 04/22/17 at 21:00 Clonazepam (KlonoPIN) 0.5 mg PRN DAILY PRN PO ANXIETY; Start 04/22/17 at 21:00 Clonazepam (KlonoPIN) 0.5 mg TID PO Last administered on 04/26/17 13:31; Start 04/22/17 at 21:30 Divalproex Sodium (Depakote) 250 mg TID PO Last administered on 04/26/17 13:32 ; Start 04/22/17 at 21:30 Sertraline HCl (Zoloft) 150 mg DAILY PO Last administered on 04/23/17 08:10; Start 04/23/17 at 09:00; Stop 04/23/17 at 20:15; Status DC Albuterol Sulfate (Ventolin) 2.5 mg STK-MED ONCE .ROUTE ; Start 04/22/17 at 18: 56; Stop 04/22/17 at 20:56; Status DC Budesonide (Pulmicort) 0.5 mg STK-MED ONCE .ROUTE ; Start 04/22/17 at 18:56; Stop 04/22/17 at 20:56; Status DC Albuterol Sulfate (Ventolin) 2.5 mg PRN Q2HR PRN NEB WHEEZING; Start 04/22/17 at 21:00 Aspirin (Aspirin Enteric Coated) 81 mg DAILY PO Last administered on 04/26/17 07:32; Start 04/23/17 at 09:00 Budesonide (Pulmicort) 0.5 mg BID NEB Last administered on 04/26/17 11:53; Start 04/22/17 at 21:00 Calcium Polycarbophil (Fibercon) 1,250 mg DAILY PO Last administered on 07:34; Start 04/23/17 at 09:00 Vitamin D (Vitamin D3) 2,000 unit DAILY PO Last administered on 04/26/17 07:33 ; Start 04/23/17 at 09:00 Clonidine HCl (Catapres) 0.1 mg TID PO Last administered on 04/26/17 13:31; Start 04/22/17 at 21:30 Guaifenesin (Mucinex Er) 600 mg Q12HR PO Last administered on 04/26/17 07:28; Start 04/22/17 at 21:30 Hydralazine HCl (Apresoline) 50 mg TID PO Last administered on 04/26/17 13:32 ; Start 04/22/17 at 21:30 Hydromorphone HCl (Dilaudid) 2 mg PRN Q3HRS PRN PO PAIN Last administered on 15:23; Start 04/22/17 at 21:00 Insulin Aspart (NovoLOG) 6 units TIDWMEALS SQ Last administered on 04/26/17 17 :00; Start 04/23/17 at 08:00 Albuterol/ Ipratropium (Duoneb) 3 ml QID NEB Last administered on 04/22/17 21: 00; Start 04/22/17 at 21:00; Stop 04/22/17 at 21:23; Status DC Levothyroxine Sodium (Synthroid) 50 mcg DAILY07 PO Last administered on 06:03; Start 04/23/17 at 07:00 Losartan Potassium (Cozaar) 50 mg DAILY PO Last administered on 04/26/17 07:34 ; Start 04/23/17 at 09:00 Al Hydroxide/Mg Hydroxide (Mylanta Plus Xs) 15 ml PRN Q4HRS PRN PO DYSPEPSIA; Start 04/22/17 at 21:00 Nitroglycerin (Nitrostat) 0.4 mg PRN Q5MIN PRN SL CHEST PAIN; Start 04/22/17 at 21:00 Potassium Chloride (Klor-Con) 40 meq DAILY PO Last administered on 04/26/17 07 :32; Start 04/23/17 at 09:00 Senna/Docusate Sodium (Senna Plus) 1 tab DAILY PO Last administered on 07:35; Start 04/23/17 at 09:00 Theophylline (Theophylline Extended Release) 200 mg BID PO Last administered on 04/26/17 07:31; Start 04/22/17 at 21:30 Torsemide (Demadex) 40 mg DAILY PO Last administered on 04/26/17 07:32; Start 04/23/17 at 09:00 Warfarin Sodium (Coumadin) 4 mg DAILY16 PO Last administered on 04/26/17 16:20 ; Start 04/23/17 at 16:00 Atorvastatin Calcium (Lipitor) 80 mg QHS PO Last administered on 04/25/17 19: 41; Start 04/23/17 at 21:00 Atenolol (Tenormin) 100 mg DAILY PO Last administered on 04/26/17 07:33; Start 04/23/17 at 09:00 Calcium/Vitamin D (Oscal D 500mg/ 200uts) 1 tab BIDWMEALS PO Last administered on 04/26/17 16:19; Start 04/23/17 at 08:00 Non-Formulary Medication 20 mcg Q12HR NEB ; Start 04/22/17 at 21:00; Status UNV Insulin Detemir (Levemir) 8 units QHS SQ Last administered on 04/25/17 19:47; Start 04/22/17 at 22:00 Isosorbide Mononitrate (Imdur) 120 mg DAILY PO Last administered on 04/26/17 07:34; Start 04/23/17 at 09:00 Albuterol/ Ipratropium (Duoneb) 3 ml RTQID NEB Last administered on 04/26/17 17:10; Start 04/23/17 at 08:00 Warfarin Sodium (Coumadin Per Physician) 1 each PRN DAILY PRN MC SEE COMMENTS; Start 04/22/17 at 21:45; Stop 04/23/17 at 20:23; Status DC Temazepam (Restoril) 15 mg PRN QHS PRN PO INSOMNIA, MAY REPEAT X1 Last administered on 04/25/17 19:58; Start 04/22/17 at 22:30 Olanzapine (ZyPREXA ZYDIS) 5 mg PRN Q2HR PRN PO Agitation Last administered on 04/22/17 22:38; Start 04/22/17 at 22:30 Albuterol/ Ipratropium (Duoneb) 3 ml STK-MED ONCE .ROUTE ; Start 04/23/17 at 02: 56; Stop 04/23/17 at 04:57; Status DC Warfarin Sodium (Coumadin Per Pharmacy) 1 each PRN DAILY PRN MC SEE COMMENTS Last administered on 04/25/17 11:39; Start 04/23/17 at 20:00 Duloxetine HCl (Cymbalta) 30 mg DAILY PO Last administered on 04/26/17 07:35; Start 04/24/17 at 09:00 Active Scripts Active Reported Vitamin D3 (Cholecalciferol (Vitamin D3)) 1,000 Unit Tablet 2,000 Unit PO DAILY Torsemide 20 Mg Tablet 40 Mg PO DAILY Theochron (Theophylline Anhydrous) 200 Mg Tab.er.12h 200 Mg PO BID Zoloft (Sertraline Hcl) 100 Mg Tablet 150 Mg PO DAILY Senna-S Tablet (Sennosides/Docusate Sodium) 1 Each Tablet 1 Tab PO DAILY Klor-Con M20 (Potassium Chloride) 20 Meq Tab.er.prt 40 Meq PO DAILY Novolog Flexpen (Insulin Aspart) 100 Unit/1 Ml Insuln.pen 6 Unit SQ TIDWMEALS NITROGLYCERIN SubLingual (Nitroglycerin) 0.4 Mg Tab.subl 0.4 Mg SL PRN Q5MIN PRN Mag-Al Plus Xs Suspension (Mag Hydrox/Al Hydrox/Simeth) 30 Ml Oral.susp 15 Ml PO PRN Q4HRS PRN Mucinex (Guaifenesin) 600 Mg Tablet.er 600 Mg PO Q12HR Losartan Potassium 50 Mg Tablet 50 Mg PO DAILY Levothyroxine Sodium 50 Mcg Tablet 50 Mcg PO DAILY07 Lantus Solostar (Insulin Glargine,Hum.rec.anlog) 100 Unit/1 Ml Insuln.pen 8 Unit SQ QHS Klonopin (Clonazepam) 0.5 Mg Tablet 0.5 Mg PO TID Klonopin (Clonazepam) 0.5 Mg Tablet 0.5 Mg PO PRN DAILY PRN Isosorbide Mononitrate Er (Isosorbide Mononitrate) 120 Mg Tab.er.24h 120 Mg PO DAILY Hydralazine Hcl 50 Mg Tablet 50 Mg PO TID Perforomist (Formoterol Fumarate) 20 Mcg/2 Ml Vial.neb 20 Mcg NEB Q12HR Fibercon (Calcium Polycarbophil) 625 Mg Tablet 1,250 Mg PO DAILY Duoneb 0.5-3(2.5) Mg/3 Ml (Albuterol/Ipratropium) 3 Ml Ampul.neb 3 Ml NEB QID Dilaudid (Hydromorphone Hcl) 2 Mg Tablet 2 Mg PO PRN Q3HRS PRN Depakote (Divalproex Sodium) 250 Mg Tablet.dr 250 Mg PO TID Coumadin (Warfarin Sodium) 4 Mg Tablet 4 Mg PO DAILY16 Clonidine Hcl 0.1 Mg Tablet 0.1 Mg PO TID Calcium 600 + Vit D 200 Tablet (Calcium Carbonate/Vitamin D3) 1 Each Tablet 1 Tab PO BID Budesonide 0.5 Mg/2 Ml Ampul.neb 0.5 Mg IH BID Bisoprolol Fumarate 10 Mg Tablet 10 Mg PO DAILY Atorvastatin Calcium 80 Mg Tablet 80 Mg PO QHS Aspir-Low (Aspirin) 81 Mg Tablet.dr 81 Mg PO DAILY Albuterol Sulfate Neb Soln (Albuterol Sulfate) 2.5 Mg/3 Ml Vial.neb 2.5 Mg NEB PRN Q2HR PRN Diagnosis: Problems: (1) Bipolar disorder (2) Behavioral problem (3) Anxiety disorder (4) Impulse control disorder (5) Major depressive disorder, recurrent episode (6) Bipolar affective disorder, mixed LISA MAGANA MD Apr 26, 2017 19:40
[2017-04-26] MEDS: ATORVASTATIN CALCIUM 20 MG TABLET PO SCH (19:45)
[2017-04-26] MEDS: INSULIN DETEMIR 300 UNITS/3 ML INSULN.PEN. SQ SCH (19:50)
[2017-04-26] MEDS: TEMAZEPAM 15 MG CAPSULE PO PRN (19:56)
--- NOTE | 2017-04-27 04:47 | PN ---
DATE: 04/25/2017 PSYCHIATRIC PROGRESS NOTE This late entry 04/25/2017 covers elements not covered in my initial note. I met with the patient in the evening of 04/25/2017. Overall, he states he has had a good day, he still felt a little more animated, less depressed. He slept poorly the previous evening, 3 and 3/4 hours, somewhat anxious and I have asked the nursing staff to repeat the Restoril night of 04/25/2017 to help with insomnia. REVIEW OF SYSTEMS: No CV, , pulmonary, eye, ENT system symptoms on review. MENTAL STATUS EXAM: Reasonably oriented. Speech is coherent. I met with him in his room. Abstraction fair. Computation is somewhat impaired. Language function intact. Attention span short. Mood and affect is improved. No suicidal or homicidal ideation. No clear psychotic symptoms. LABORATORY DATA: Reviewed. IMPRESSION: Unchanged from my initial note. PLAN: Continue current psychotropics mentioned in my initial note. Valproic acid level therapeutic at 64. Adjust further as clinically indicated. Reviewed drug interactions risk/benefit ratio favors no further change at this time. MAN Mery MAGANA MD DR: HARDIK/sandro JOB#: [id number] / [id number]
[2017-04-27] MEDS: IPRATRPIUM/ALBUTEROL 0.5/2.5MG 3 ML NEBU. NEB SCH ×4 (05:43→21:27)
[2017-04-27] MEDS: LEVOTHYROXINE 50 MCG TABLET PO SCH (05:51)
[2017-04-27 06:39] VITALS: BP 135/85
[2017-04-27] MEDS: CALCIUM CARB/VIT D3 500/200 TABLET PO SCH ×2 (08:15→17:02)
[2017-04-27] MEDS: DULoxetine HCL 30 MG CAPSULE.DR PO SCH (08:15)
[2017-04-27] MEDS: LOSARTAN 50 MG TABLET. PO SCH (08:16)
[2017-04-27] MEDS: cloNIDine HCL 0.1 MG TABLET PO SCH ×3 (08:16→20:03)
[2017-04-27] MEDS: SENNOSIDES/DOCUSATE 8.6/50MG TABLET. PO SCH (08:16)
[2017-04-27] MEDS: clonazePAM 0.5 MG TABLET PO SCH ×3 (08:18→20:03)
[2017-04-27] MEDS: TORSEMIDE 20 MG TABLET. PO SCH (08:18)
[2017-04-27] MEDS: ISOSORBIDE MONONITRATE ER 30 MG TAB.ER.24H PO SCH (08:18)
[2017-04-27] MEDS: POTASSIUM CHLORIDE 20 MEQ TABLET.ER. PO SCH (08:19)
[2017-04-27] MEDS: HYDROmorphone 2 MG TABLET PO PRN ×3 (08:19→20:35)
[2017-04-27] MEDS: THEOPHYLLINE ANHYDROUS 400 MG TABLET.ER. PO SCH ×2 (08:20→20:35)
[2017-04-27] MEDS: CHOLECALCIFEROL (VITAMIN D3) 1,000 UNIT TABLET PO SCH (08:20)
[2017-04-27] MEDS: ATENOLOL 25 MG TABLET PO SCH (08:21)
[2017-04-27] MEDS: DIVALPROEX SODIUM 250 MG TABLET.DR. PO SCH ×2 (08:21→14:06)
[2017-04-27] MEDS: INSULIN ASPART 300 UNITS/3 ML INSULN.PEN SQ SCH ×3 (08:24→17:04)
[2017-04-27] MEDS: ASPIRIN ENTERIC COATED 81 MG TABLET.DR. PO SCH (08:28)
--- NOTE | 2017-04-27 10:30 | NUR ---
THERAPEUTIC RECREATION GROUP NOTE TITLE :40 Ways to Relax in 5 ACTIVITY : Relaxation GOAL : Decrease stress, elevate mood, increase concentration/attention, encourage awareness DURATION : 60 Minutes RESPONSE : Moderate participation. Pt. was in and out of the session. He engaged every now occasionally; however, appeared to have trouble paying attention with distractions in the room.
[2017-04-27] MEDS: BUDESONIDE 0.5 MG/2 ML NEBU NEB SCH ×2 (10:40→21:27)
--- NOTE | 2017-04-27 11:30 | NUR ---
THERAPEUTIC RECREATION GROUP NOTE TITLE :Movement to Music: Flexibility ACTIVITY : Movement/ Exercise GOAL : Increase morale, attention, flexibility. Decrease stress/anxiety. DURATION : 30 Minutes RESPONSE : No participation Addendum: 04/28/17 at 1331 by LORI VILLALOBOS ACT This session took place on 04/28/2017, not 04/27/2017.
--- NOTE | 2017-04-27 11:30 | NUR ---
THERAPEUTIC RECREATION GROUP NOTE TITLE :Movement to Music: Strength ACTIVITY : Movement/ Exercise GOAL : Increase morale, attention, flexibility. Decrease stress/anxiety. DURATION : 30 Minutes RESPONSE : Minimal participation. Pt. started with the group and did a couple moves. He left soon after it started and did not return.
--- NOTE | 2017-04-27 14:00 | NUR ---
THERAPEUTIC RECREATION GROUP NOTE TITLE :Sing along with Jeanette ACTIVITY : Music GOAL : Increase socialization, elevate mood, stimulate memory DURATION : 60 minutes RESPONSE : No participation
--- NOTE | 2017-04-27 14:28 | NUR ---
SW met with pt 1:1 pt states he wants to leave, SW had spoken with Dr. Garcia and explained the plan of Care pt states he understands and is willing to stay for a few more days and will talk with SW again regarding the plan in am. SW to provide pt with information regarding his dx. Pt also wanted to call his facility regarding [facility] program, SW help with this pt left message. SW will continue to follow with pt.
--- NOTE | 2017-04-27 14:29 | NUR ---
Behavior Intervention Response and Plan: BIRP Note: Behavior: Assumed Care of patient, patient located in Patient Room at shift change. Patient exhibited the following behavior Calm, Appropriate, . Brief assessment on rounds of vital signs, medication needs, lab studies, and pain. Treatment plan problems: 1. DANGER TO SELF, 2. FALL RISK. Intervention: Patient assessed and the following interventions initiated safety checks 15 Minute Checks Cognitive Assessment , Head to toe Assessment , Medications. Response: After interactions and interventions patient responded in the following manner, Calm , Withdrawn ,. Continue to assess behaviors and condition will continue to monitor throughout the shift as needed. Patient educated on ADL's, and hand hygiene. 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 Continue to assess patient for changes in above assessment. Monitor for medication needs, pain, and safety concerns. Hourly rounding performed to ensure safe environment.
[2017-04-27 15:43] VITALS: BP 120/69
[2017-04-27] MEDS: CALCIUM POLYCARBOPHIL 625 MG TABLET PO SCH (17:02)
[2017-04-27] MEDS: WARFARIN 4 MG TABLET. PO SCH (17:03)
--- NOTE | 2017-04-27 19:36 | PDOC ---
Exam Duong Demential Exam: Duong Note: Please also refer to the separate dictated note~for this date of service dictated separately.~Patient seen individually. Discussed the patient with Nursing staff reviewed the chart.~Reviewed interim history and current functioning. Reviewed vital signs,~Labs/ Radiology~and current medications noted below. Continue current treatment with the changes noted in the dictated addendum note Assessment: Vital Signs: Vital Signs Date Time Temp Pulse Resp B/P (MAP) Pulse Ox O2 Delivery O2 Flow Rate FiO2 04/27/17 15:43 97.4 84 18 120/69 (86) 97 04/27/17 08:19 Room Air I&O Intake and Output 04/28/17 07:00 Intake Total 1020 ml Balance 1020 ml Intake Oral 1020 ml Labs: Laboratory Tests Test 04/26/17 19:39 04/27/17 07:26 04/27/17 11:28 04/27/17 16:11 Glucose (Fingerstick) 137 mg/dL (70-99) H 107 mg/dL (70-99) H 187 mg/dL (70-99) H 75 mg/dL (70-99) Current Medications: Meds: Current Medications Clonazepam (KlonoPIN) 0.5 mg 1X ONCE PO ; Start 04/22/17 at 20:15; Stop at 20:15; Status DC Clonazepam (KlonoPIN) 0.5 mg 1X ONCE PO Last administered on 04/22/17t 20:20; Start 04/22/17 at 20:15; Stop 04/22/17 at 20:16; Status DC Acetaminophen (Tylenol) 650 mg PRN Q6HRS PRN PO PAIN / TEMP; Start 04/22/17 at 21:00 Multi-Ingredient Ointment (Analgesic [place]) 1 ismael PRN QID PRN TP MUSCLE PAIN; Start 04/22/17 at 21:00 Al Hydroxide/Mg Hydroxide (Mylanta Plus Xs) 15 ml PRN AFTMEALHC PRN PO DYSPEPSIA; Start 04/22/17 at 21:00; Status UNV Magnesium Hydroxide (Milk Of Magnesia) 2,400 mg PRN QHS PRN PO CONSTIPATION; Start 04/22/17 at 21:00 Clonazepam (KlonoPIN) 0.5 mg PRN DAILY PRN PO ANXIETY; Start 04/22/17 at 21:00 Clonazepam (KlonoPIN) 0.5 mg TID PO Last administered on 04/27/17 14:06; Start 04/22/17 at 21:30 Divalproex Sodium (Depakote) 250 mg TID PO Last administered on 04/27/17 14:06 ; Start 04/22/17 at 21:30; Stop 04/27/17 at 18:20; Status DC Sertraline HCl (Zoloft) 150 mg DAILY PO Last administered on 04/23/17 08:10; Start 04/23/17 at 09:00; Stop 04/23/17 at 20:15; Status DC Albuterol Sulfate (Ventolin) 2.5 mg STK-MED ONCE .ROUTE ; Start 04/22/17 at 18: 56; Stop 04/22/17 at 20:56; Status DC Budesonide (Pulmicort) 0.5 mg STK-MED ONCE .ROUTE ; Start 04/22/17 at 18:56; Stop 04/22/17 at 20:56; Status DC Albuterol Sulfate (Ventolin) 2.5 mg PRN Q2HR PRN NEB WHEEZING; Start 04/22/17 at 21:00 Aspirin (Aspirin Enteric Coated) 81 mg DAILY PO Last administered on 04/27/17 08:28; Start 04/23/17 at 09:00 Budesonide (Pulmicort) 0.5 mg BID NEB Last administered on 04/27/17 10:40; Start 04/22/17 at 21:00 Calcium Polycarbophil (Fibercon) 1,250 mg DAILY PO Last administered on 07:34; Start 04/23/17 at 09:00; Stop 04/27/17 at 15:07; Status DC Vitamin D (Vitamin D3) 2,000 unit DAILY PO Last administered on 04/27/17 08:20 ; Start 04/23/17 at 09:00 Clonidine HCl (Catapres) 0.1 mg TID PO Last administered on 04/27/17 14:05; Start 04/22/17 at 21:30 Guaifenesin (Mucinex Er) 600 mg Q12HR PO Last administered on 04/27/17 08:19; Start 04/22/17 at 21:30 Hydralazine HCl (Apresoline) 50 mg TID PO Last administered on 04/27/17 14:05 ; Start 04/22/17 at 21:30 Hydromorphone HCl (Dilaudid) 2 mg PRN Q3HRS PRN PO PAIN Last administered on 17:08; Start 04/22/17 at 21:00 Insulin Aspart (NovoLOG) 6 units TIDWMEALS SQ Last administered on 04/27/17 17 :04; Start 04/23/17 at 08:00 Albuterol/ Ipratropium (Duoneb) 3 ml QID NEB Last administered on 04/22/17 21: 00; Start 04/22/17 at 21:00; Stop 04/22/17 at 21:23; Status DC Levothyroxine Sodium (Synthroid) 50 mcg DAILY07 PO Last administered on 05:51; Start 04/23/17 at 07:00 Losartan Potassium (Cozaar) 50 mg DAILY PO Last administered on 04/27/17 08:16 ; Start 04/23/17 at 09:00 Al Hydroxide/Mg Hydroxide (Mylanta Plus Xs) 15 ml PRN Q4HRS PRN PO DYSPEPSIA; Start 04/22/17 at 21:00 Nitroglycerin (Nitrostat) 0.4 mg PRN Q5MIN PRN SL CHEST PAIN; Start 04/22/17 at 21:00 Potassium Chloride (Klor-Con) 40 meq DAILY PO Last administered on 04/27/17 08 :19; Start 04/23/17 at 09:00 Senna/Docusate Sodium (Senna Plus) 1 tab DAILY PO Last administered on 08:16; Start 04/23/17 at 09:00 Theophylline (Theophylline Extended Release) 200 mg BID PO Last administered on 04/27/17 08:20; Start 04/22/17 at 21:30 Torsemide (Demadex) 40 mg DAILY PO Last administered on 04/27/17 08:18; Start 04/23/17 at 09:00 Warfarin Sodium (Coumadin) 4 mg DAILY16 PO Last administered on 04/27/17 17:03 ; Start 04/23/17 at 16:00 Atorvastatin Calcium (Lipitor) 80 mg QHS PO Last administered on 04/26/17 19: 45; Start 04/23/17 at 21:00 Atenolol (Tenormin) 100 mg DAILY PO Last administered on 04/27/17 08:21; Start 04/23/17 at 09:00 Calcium/Vitamin D (Oscal D 500mg/ 200uts) 1 tab BIDWMEALS PO Last administered on 04/27/17 17:02; Start 04/23/17 at 08:00 Non-Formulary Medication 20 mcg Q12HR NEB ; Start 04/22/17 at 21:00; Status UNV Insulin Detemir (Levemir) 8 units QHS SQ Last administered on 04/26/17 19:50; Start 04/22/17 at 22:00 Isosorbide Mononitrate (Imdur) 120 mg DAILY PO Last administered on 04/27/17 08:18; Start 04/23/17 at 09:00 Albuterol/ Ipratropium (Duoneb) 3 ml RTQID NEB Last administered on 04/27/17 10:40; Start 04/23/17 at 08:00 Warfarin Sodium (Coumadin Per Physician) 1 each PRN DAILY PRN MC SEE COMMENTS; Start 04/22/17 at 21:45; Stop 04/23/17 at 20:23; Status DC Temazepam (Restoril) 15 mg PRN QHS PRN PO INSOMNIA, MAY REPEAT X1 Last administered on 04/26/17 19:56; Start 04/22/17 at 22:30 Olanzapine (ZyPREXA ZYDIS) 5 mg PRN Q2HR PRN PO Agitation Last administered on 04/22/17 22:38; Start 04/22/17 at 22:30 Albuterol/ Ipratropium (Duoneb) 3 ml STK-MED ONCE .ROUTE ; Start 04/23/17 at 02: 56; Stop 04/23/17 at 04:57; Status DC Warfarin Sodium (Coumadin Per Pharmacy) 1 each PRN DAILY PRN MC SEE COMMENTS Last administered on 04/25/17 11:39; Start 04/23/17 at 20:00 Duloxetine HCl (Cymbalta) 30 mg DAILY PO Last administered on 04/27/17 08:15; Start 04/24/17 at 09:00 Calcium Polycarbophil (Fibercon) 1,250 mg DAILY PO Last administered on t 17:02; Start 04/27/17 at 15:15 Lamotrigine (LaMICtal) 25 mg HS PO ; Start 04/28/17 at 21:00; Stop 05/01/17 at 10:00 Lamotrigine (LaMICtal) 50 mg HS PO ; Start 05/01/17 at 21:00 Active Scripts Active Reported Vitamin D3 (Cholecalciferol (Vitamin D3)) 1,000 Unit Tablet 2,000 Unit PO DAILY Torsemide 20 Mg Tablet 40 Mg PO DAILY Theochron (Theophylline Anhydrous) 200 Mg Tab.er.12h 200 Mg PO BID Zoloft (Sertraline Hcl) 100 Mg Tablet 150 Mg PO DAILY Senna-S Tablet (Sennosides/Docusate Sodium) 1 Each Tablet 1 Tab PO DAILY Klor-Con M20 (Potassium Chloride) 20 Meq Tab.er.prt 40 Meq PO DAILY Novolog Flexpen (Insulin Aspart) 100 Unit/1 Ml Insuln.pen 6 Unit SQ TIDWMEALS NITROGLYCERIN SubLingual (Nitroglycerin) 0.4 Mg Tab.subl 0.4 Mg SL PRN Q5MIN PRN Mag-Al Plus Xs Suspension (Mag Hydrox/Al Hydrox/Simeth) 30 Ml Oral.susp 15 Ml PO PRN Q4HRS PRN Mucinex (Guaifenesin) 600 Mg Tablet.er 600 Mg PO Q12HR Losartan Potassium 50 Mg Tablet 50 Mg PO DAILY Levothyroxine Sodium 50 Mcg Tablet 50 Mcg PO DAILY07 Lantus Solostar (Insulin Glargine,Hum.rec.anlog) 100 Unit/1 Ml Insuln.pen 8 Unit SQ QHS Klonopin (Clonazepam) 0.5 Mg Tablet 0.5 Mg PO TID Klonopin (Clonazepam) 0.5 Mg Tablet 0.5 Mg PO PRN DAILY PRN Isosorbide Mononitrate Er (Isosorbide Mononitrate) 120 Mg Tab.er.24h 120 Mg PO DAILY Hydralazine Hcl 50 Mg Tablet 50 Mg PO TID Perforomist (Formoterol Fumarate) 20 Mcg/2 Ml Vial.neb 20 Mcg NEB Q12HR Fibercon (Calcium Polycarbophil) 625 Mg Tablet 1,250 Mg PO DAILY Duoneb 0.5-3(2.5) Mg/3 Ml (Albuterol/Ipratropium) 3 Ml Ampul.neb 3 Ml NEB QID Dilaudid (Hydromorphone Hcl) 2 Mg Tablet 2 Mg PO PRN Q3HRS PRN Depakote (Divalproex Sodium) 250 Mg Tablet.dr 250 Mg PO TID Coumadin (Warfarin Sodium) 4 Mg Tablet 4 Mg PO DAILY16 Clonidine Hcl 0.1 Mg Tablet 0.1 Mg PO TID Calcium 600 + Vit D 200 Tablet (Calcium Carbonate/Vitamin D3) 1 Each Tablet 1 Tab PO BID Budesonide 0.5 Mg/2 Ml Ampul.neb 0.5 Mg IH BID Bisoprolol Fumarate 10 Mg Tablet 10 Mg PO DAILY Atorvastatin Calcium 80 Mg Tablet 80 Mg PO QHS Aspir-Low (Aspirin) 81 Mg Tablet.dr 81 Mg PO DAILY Albuterol Sulfate Neb Soln (Albuterol Sulfate) 2.5 Mg/3 Ml Vial.neb 2.5 Mg NEB PRN Q2HR PRN Diagnosis: Problems: (1) Bipolar disorder (2) Behavioral problem (3) Anxiety disorder (4) Impulse control disorder (5) Major depressive disorder, recurrent episode (6) Bipolar affective disorder, mixed LISA MAGANA MD Apr 27, 2017 19:36
[2017-04-27] MEDS: ATORVASTATIN CALCIUM 20 MG TABLET PO SCH (20:01)
[2017-04-27] MEDS: TEMAZEPAM 15 MG CAPSULE PO PRN ×2 (20:03→21:35)
[2017-04-27] MEDS: INSULIN DETEMIR 300 UNITS/3 ML INSULN.PEN. SQ SCH (20:09)
--- NOTE | 2017-04-27 20:35 | NUR ---
Pt c/o Rt knee pain, rates pain 8/10. PRN Dilaudid po administered as ordered @this time.
--- NOTE | 2017-04-27 21:35 | NUR ---
Pt c/o not being able to get to sleep despite PRN Restoril being administered @HS. Repeat Restoril PRN administered at this time.
--- NOTE | 2017-04-27 22:47 | NUR ---
Behavior Intervention Response and Plan: BIRP Note: Behavior: Assumed Care of patient, patient located in Day Room at shift change. Patient exhibited the following behavior Calm, Interactive, Social. Brief assessment on rounds of vital signs, medication needs, lab studies, and pain. Treatment plan problems 1 and 2. Intervention: Patient assessed and the following interventions initiated safety checks 15 Minute Checks Cognitive Assessment , Head to toe Assessment , Medications. Response: After interactions and interventions patient responded in the following manner, Calm , Compliant ,Cooperative. Continue to assess behaviors and condition will continue to monitor throughout the shift as needed. Patient educated on ADL's, and hand hygiene. 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 Continue to assess patient for changes in above assessment. Monitor for medication needs, pain, and safety concerns. Hourly rounding performed to ensure safe environment.
--- NOTE | 2017-04-28 03:55 | PN ---
DATE: 04/26/2017 PSYCHIATRIC PROGRESS NOTE This is a late entry for 04/26/2017 covers the elements not covered in my initial note of 04/26/2017. SUBJECTIVE: I met with the patient the evening of 04/26/2017. 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 He slept 7-1/4 hours, which is an improvement for him. REVIEW OF SYSTEMS: No CV, , pulmonary, eye, ENT system symptoms on review. MENTAL STATUS EXAM: Reasonably oriented. Speech is coherent, abstraction fair, computation impaired, language function intact, attention span short. Mood and affect is improved. He still feels depression is better, less anxious. I again explored his past history, there is no clear history of ashley, but repeated episodes of depression. It is not entirely clear how beneficial the Depakote would be given this situation and he would perhaps to better on Lamictal in place of the Depakote. We will give it another day and consider increasing Cymbalta to 60 mg a day. Maintain Klonopin scheduled and p.r.n. at this dosage together with the Restoril, Zyprexa p.r.n. Review drug interactions. Risk/benefit ratio favors no further change with decision to increase the Cymbalta and/or change Depakote to Lamictal. MAN Mery MAGANA MD DR: HARDIK/sandro JOB#: [id number] / [id number]
[2017-04-28 05:26] VITALS: BP 130/56
[2017-04-28] MEDS: IPRATRPIUM/ALBUTEROL 0.5/2.5MG 3 ML NEBU. NEB SCH ×4 (05:26→22:58)
[2017-04-28] MEDS: LEVOTHYROXINE 50 MCG TABLET PO SCH (06:03)
[2017-04-28] MEDS: INSULIN ASPART 300 UNITS/3 ML INSULN.PEN SQ SCH ×3 (08:00→17:27)
[2017-04-28] MEDS: CALCIUM POLYCARBOPHIL 625 MG TABLET PO SCH (08:17)
[2017-04-28] MEDS: ATENOLOL 25 MG TABLET PO SCH (08:17)
[2017-04-28] MEDS: POTASSIUM CHLORIDE 20 MEQ TABLET.ER. PO SCH (08:17)
[2017-04-28] MEDS: TORSEMIDE 20 MG TABLET. PO SCH (08:18)
[2017-04-28] MEDS: DULoxetine HCL 30 MG CAPSULE.DR PO SCH (08:18)
[2017-04-28] MEDS: cloNIDine HCL 0.1 MG TABLET PO SCH ×3 (08:18→19:59)
[2017-04-28] MEDS: CALCIUM CARB/VIT D3 500/200 TABLET PO SCH ×2 (08:20→17:26)
[2017-04-28] MEDS: SENNOSIDES/DOCUSATE 8.6/50MG TABLET. PO SCH (08:20)
[2017-04-28] MEDS: ISOSORBIDE MONONITRATE ER 30 MG TAB.ER.24H PO SCH (08:20)
[2017-04-28] MEDS: ASPIRIN ENTERIC COATED 81 MG TABLET.DR. PO SCH (08:20)
[2017-04-28] MEDS: LOSARTAN 50 MG TABLET. PO SCH (08:20)
[2017-04-28] MEDS: CHOLECALCIFEROL (VITAMIN D3) 1,000 UNIT TABLET PO SCH (08:21)
[2017-04-28] MEDS: THEOPHYLLINE ANHYDROUS 400 MG TABLET.ER. PO SCH ×2 (08:21→20:01)
[2017-04-28] MEDS: clonazePAM 0.5 MG TABLET PO SCH ×3 (08:38→20:02)
[2017-04-28] MEDS: HYDROmorphone 2 MG TABLET PO PRN ×3 (08:38→20:00)
--- NOTE | 2017-04-28 09:00 | NUR ---
patient reports that he has pain in his right knee rated 7/10. Given PRN dilaudid per order and will continue to monitor.
--- NOTE | 2017-04-28 10:15 | NUR ---
THERAPEUTIC RECREATION GROUP NOTE TITLE :Funny Videos and Jokes ACTIVITY : Humor GOAL : Decrease stress, elevate mood DURATION : 75 Minutes RESPONSE : Full participation. Pt. was working on a [employer] project for most of the beginning of group. He joined in towards the end and watched videos, told jokes, and reminisced about things that came up. He wandered in and out of the group.
[2017-04-28] MEDS: BUDESONIDE 0.5 MG/2 ML NEBU NEB SCH ×2 (10:33→22:58)
--- NOTE | 2017-04-28 11:02 | NUR ---
Behavior Intervention Response and Plan: BIRP Note: Behavior: Assumed Care of patient, patient located in Patient Room at shift change. Patient exhibited the following behavior Calm, Interactive, Withdrawn. Brief assessment on rounds of vital signs, medication needs, lab studies, and pain. Treatment plan problems 1 and 2. Intervention: Patient assessed and the following interventions initiated safety checks 15 Minute Checks Cognitive Assessment , Head to toe Assessment , Medications. Response: After interactions and interventions patient responded in the following manner, Interactive , Able to Focus on Task ,Cooperative, Denies SI. Continue to assess behaviors and condition will continue to monitor throughout the shift as needed. Patient educated on ADL's, and hand hygiene. Plan: Continue to monitor Master Treatment Plan for patient's progress toward short term goals of No harm To self/ others, Improved Mood, ocean transportation intermediary goals to return to previous living setting vs placement. Continue to assess patient for changes in above assessment. Monitor for medication needs, pain, and safety concerns. Hourly rounding performed to ensure safe environment.
--- NOTE | 2017-04-28 11:03 | NUR ---
Patient in day room putting together a paper chain, in a craft group. Joining others in conversation and at this time denies SI. Will continue to monitor.
--- NOTE | 2017-04-28 11:07 | NUR ---
Group Note [facility] Orientation Group Start Time: 9:05am End Time: 9:35am Problem: Anxiety Purpose: Reduction of Stress, Orientation, Reduction of Anxiety, Socializing Level of Participation: low Behaviors or Symptoms Observed: Pt joined group half way through and did not participate in group discussion. Interventions: Clarification Response: Pt sat to the side and listened to the group discussion till the end of group. Plan: Group Participation Additional Comments:
--- NOTE | 2017-04-28 14:00 | NUR ---
Patient has complaint of knee pain rated 6/10 in Right knee, states it is related to knee replacement surgery that he had done in january 2017. Given PRN Dilaudid per order and will continue to monitor.
--- NOTE | 2017-04-28 14:10 | NUR ---
THERAPEUTIC RECREATION GROUP NOTE TITLE :What can we do ALONE, needs NO SUPPLIES, that's FUN, and RELAXING? ACTIVITY : Leisure Awareness GOAL : Increase knowledge of leisure activities DURATION : 60 Minutes RESPONSE : No participation
[2017-04-28 16:36] VITALS: BP 125/91
[2017-04-28] MEDS: WARFARIN 4 MG TABLET. PO SCH (17:26)
[2017-04-28] MEDS: ATORVASTATIN CALCIUM 20 MG TABLET PO SCH (19:59)
[2017-04-28] MEDS: TEMAZEPAM 15 MG CAPSULE PO PRN (20:00)
[2017-04-28] MEDS: lamoTRIgine 25 MG TABLET. PO SCH (20:00)
--- NOTE | 2017-04-28 20:00 | NUR ---
Nursing Note: Pt c/o Rt knee pain, rates pain 7/10 at this time. PRN Dilaudid administered as ordered as well as PRN Restoril for sleep.
[2017-04-28] MEDS: INSULIN DETEMIR 300 UNITS/3 ML INSULN.PEN. SQ SCH (20:06)
--- NOTE | 2017-04-28 21:02 | PDOC ---
Exam Duong Demential Exam: Duong Note: Please also refer to the separate dictated note~for this date of service dictated separately.~Patient seen individually. Discussed the patient with Nursing staff reviewed the chart.~Reviewed interim history and current functioning. Reviewed vital signs,~Labs/ Radiology~and current medications noted below. Continue current treatment with the changes noted in the dictated addendum note Assessment: Vital Signs: Vital Signs Date Time Temp Pulse Resp B/P (MAP) Pulse Ox O2 Delivery O2 Flow Rate FiO2 04/28/17 20:00 18 97 Room Air 04/28/17 20:00 81 125/91 04/28/17 16:36 97.4 I&O Intake and Output 04/29/17 07:00 Intake Total 1080 ml Balance 1080 ml Intake Oral 1080 ml Labs: Laboratory Tests Test 04/28/17 07:50 04/28/17 11:33 04/28/17 16:42 04/28/17 19:00 Glucose (Fingerstick) 92 mg/dL (70-99) 170 mg/dL (70-99) H 110 mg/dL (70-99) H 169 mg/dL (70-99) H Current Medications: Meds: Current Medications Clonazepam (KlonoPIN) 0.5 mg 1X ONCE PO ; Start 04/22/17 at 20:15; Stop at 20:15; Status DC Clonazepam (KlonoPIN) 0.5 mg 1X ONCE PO Last administered on 04/22/17t 20:20; Start 04/22/17 at 20:15; Stop 04/22/17 at 20:16; Status DC Acetaminophen (Tylenol) 650 mg PRN Q6HRS PRN PO PAIN / TEMP; Start 04/22/17 at 21:00 Multi-Ingredient Ointment (Analgesic [place]) 1 ismael PRN QID PRN TP MUSCLE PAIN; Start 04/22/17 at 21:00 Al Hydroxide/Mg Hydroxide (Mylanta Plus Xs) 15 ml PRN AFTMEALHC PRN PO DYSPEPSIA; Start 04/22/17 at 21:00; Status UNV Magnesium Hydroxide (Milk Of Magnesia) 2,400 mg PRN QHS PRN PO CONSTIPATION; Start 04/22/17 at 21:00 Clonazepam (KlonoPIN) 0.5 mg PRN DAILY PRN PO ANXIETY; Start 04/22/17 at 21:00 Clonazepam (KlonoPIN) 0.5 mg TID PO Last administered on 04/28/17 20:02; Start 04/22/17 at 21:30 Divalproex Sodium (Depakote) 250 mg TID PO Last administered on 04/27/17 14:06 ; Start 04/22/17 at 21:30; Stop 04/27/17 at 18:20; Status DC Sertraline HCl (Zoloft) 150 mg DAILY PO Last administered on 04/23/17 08:10; Start 04/23/17 at 09:00; Stop 04/23/17 at 20:15; Status DC Albuterol Sulfate (Ventolin) 2.5 mg STK-MED ONCE .ROUTE ; Start 04/22/17 at 18: 56; Stop 04/22/17 at 20:56; Status DC Budesonide (Pulmicort) 0.5 mg STK-MED ONCE .ROUTE ; Start 04/22/17 at 18:56; Stop 04/22/17 at 20:56; Status DC Albuterol Sulfate (Ventolin) 2.5 mg PRN Q2HR PRN NEB WHEEZING; Start 04/22/17 at 21:00 Aspirin (Aspirin Enteric Coated) 81 mg DAILY PO Last administered on 04/28/17 08:20; Start 04/23/17 at 09:00 Budesonide (Pulmicort) 0.5 mg BID NEB Last administered on 04/28/17 10:33; Start 04/22/17 at 21:00 Calcium Polycarbophil (Fibercon) 1,250 mg DAILY PO Last administered on 07:34; Start 04/23/17 at 09:00; Stop 04/27/17 at 15:07; Status DC Vitamin D (Vitamin D3) 2,000 unit DAILY PO Last administered on 04/28/17 08:21 ; Start 04/23/17 at 09:00 Clonidine HCl (Catapres) 0.1 mg TID PO Last administered on 04/28/17 19:59; Start 04/22/17 at 21:30 Guaifenesin (Mucinex Er) 600 mg Q12HR PO Last administered on 04/28/17 19:59; Start 04/22/17 at 21:30 Hydralazine HCl (Apresoline) 50 mg TID PO Last administered on 04/28/17 20:00 ; Start 04/22/17 at 21:30 Hydromorphone HCl (Dilaudid) 2 mg PRN Q3HRS PRN PO PAIN Last administered on 20:00; Start 04/22/17 at 21:00 Insulin Aspart (NovoLOG) 6 units TIDWMEALS SQ Last administered on 04/28/17 17 :27; Start 04/23/17 at 08:00 Albuterol/ Ipratropium (Duoneb) 3 ml QID NEB Last administered on 04/22/17 21: 00; Start 04/22/17 at 21:00; Stop 04/22/17 at 21:23; Status DC Levothyroxine Sodium (Synthroid) 50 mcg DAILY07 PO Last administered on 06:03; Start 04/23/17 at 07:00 Losartan Potassium (Cozaar) 50 mg DAILY PO Last administered on 04/28/17 08:20 ; Start 04/23/17 at 09:00 Al Hydroxide/Mg Hydroxide (Mylanta Plus Xs) 15 ml PRN Q4HRS PRN PO DYSPEPSIA; Start 04/22/17 at 21:00 Nitroglycerin (Nitrostat) 0.4 mg PRN Q5MIN PRN SL CHEST PAIN; Start 04/22/17 at 21:00 Potassium Chloride (Klor-Con) 40 meq DAILY PO Last administered on 04/28/17 08 :17; Start 04/23/17 at 09:00 Senna/Docusate Sodium (Senna Plus) 1 tab DAILY PO Last administered on 08:20; Start 04/23/17 at 09:00 Theophylline (Theophylline Extended Release) 200 mg BID PO Last administered on 04/28/17 20:01; Start 04/22/17 at 21:30 Torsemide (Demadex) 40 mg DAILY PO Last administered on 04/28/17 08:18; Start 04/23/17 at 09:00 Warfarin Sodium (Coumadin) 4 mg DAILY16 PO Last administered on 04/28/17 17:26 ; Start 04/23/17 at 16:00 Atorvastatin Calcium (Lipitor) 80 mg QHS PO Last administered on 04/28/17 19: 59; Start 04/23/17 at 21:00 Atenolol (Tenormin) 100 mg DAILY PO Last administered on 04/28/17 08:17; Start 04/23/17 at 09:00 Calcium/Vitamin D (Oscal D 500mg/ 200uts) 1 tab BIDWMEALS PO Last administered on 04/28/17 17:26; Start 04/23/17 at 08:00 Non-Formulary Medication 20 mcg Q12HR NEB ; Start 04/22/17 at 21:00; Status UNV Insulin Detemir (Levemir) 8 units QHS SQ Last administered on 04/28/17 20:06; Start 04/22/17 at 22:00 Isosorbide Mononitrate (Imdur) 120 mg DAILY PO Last administered on 04/28/17 08:20; Start 04/23/17 at 09:00 Albuterol/ Ipratropium (Duoneb) 3 ml RTQID NEB Last administered on 04/28/17 16:12; Start 04/23/17 at 08:00 Warfarin Sodium (Coumadin Per Physician) 1 each PRN DAILY PRN MC SEE COMMENTS; Start 04/22/17 at 21:45; Stop 04/23/17 at 20:23; Status DC Temazepam (Restoril) 15 mg PRN QHS PRN PO INSOMNIA, MAY REPEAT X1 Last administered on 04/28/17 20:00; Start 04/22/17 at 22:30 Olanzapine (ZyPREXA ZYDIS) 5 mg PRN Q2HR PRN PO Agitation Last administered on 04/22/17 22:38; Start 04/22/17 at 22:30 Albuterol/ Ipratropium (Duoneb) 3 ml STK-MED ONCE .ROUTE ; Start 04/23/17 at 02: 56; Stop 04/23/17 at 04:57; Status DC Warfarin Sodium (Coumadin Per Pharmacy) 1 each PRN DAILY PRN MC SEE COMMENTS Last administered on 04/25/17 11:39; Start 04/23/17 at 20:00 Duloxetine HCl (Cymbalta) 30 mg DAILY PO Last administered on 04/28/17 08:18; Start 04/24/17 at 09:00 Calcium Polycarbophil (Fibercon) 1,250 mg DAILY PO Last administered on 08:17; Start 04/27/17 at 15:15 Lamotrigine (LaMICtal) 25 mg HS PO Last administered on 04/28/17 20:00; Start 04/28/17 at 21:00; Stop 05/01/17 at 10:00 Lamotrigine (LaMICtal) 50 mg HS PO ; Start 05/01/17 at 21:00 Active Scripts Active Reported Vitamin D3 (Cholecalciferol (Vitamin D3)) 1,000 Unit Tablet 2,000 Unit PO DAILY Torsemide 20 Mg Tablet 40 Mg PO DAILY Theochron (Theophylline Anhydrous) 200 Mg Tab.er.12h 200 Mg PO BID Zoloft (Sertraline Hcl) 100 Mg Tablet 150 Mg PO DAILY Senna-S Tablet (Sennosides/Docusate Sodium) 1 Each Tablet 1 Tab PO DAILY Klor-Con M20 (Potassium Chloride) 20 Meq Tab.er.prt 40 Meq PO DAILY Novolog Flexpen (Insulin Aspart) 100 Unit/1 Ml Insuln.pen 6 Unit SQ TIDWMEALS NITROGLYCERIN SubLingual (Nitroglycerin) 0.4 Mg Tab.subl 0.4 Mg SL PRN Q5MIN PRN Mag-Al Plus Xs Suspension (Mag Hydrox/Al Hydrox/Simeth) 30 Ml Oral.susp 15 Ml PO PRN Q4HRS PRN Mucinex (Guaifenesin) 600 Mg Tablet.er 600 Mg PO Q12HR Losartan Potassium 50 Mg Tablet 50 Mg PO DAILY Levothyroxine Sodium 50 Mcg Tablet 50 Mcg PO DAILY07 Lantus Solostar (Insulin Glargine,Hum.rec.anlog) 100 Unit/1 Ml Insuln.pen 8 Unit SQ QHS Klonopin (Clonazepam) 0.5 Mg Tablet 0.5 Mg PO TID Klonopin (Clonazepam) 0.5 Mg Tablet 0.5 Mg PO PRN DAILY PRN Isosorbide Mononitrate Er (Isosorbide Mononitrate) 120 Mg Tab.er.24h 120 Mg PO DAILY Hydralazine Hcl 50 Mg Tablet 50 Mg PO TID Perforomist (Formoterol Fumarate) 20 Mcg/2 Ml Vial.neb 20 Mcg NEB Q12HR Fibercon (Calcium Polycarbophil) 625 Mg Tablet 1,250 Mg PO DAILY Duoneb 0.5-3(2.5) Mg/3 Ml (Albuterol/Ipratropium) 3 Ml Ampul.neb 3 Ml NEB QID Dilaudid (Hydromorphone Hcl) 2 Mg Tablet 2 Mg PO PRN Q3HRS PRN Depakote (Divalproex Sodium) 250 Mg Tablet.dr 250 Mg PO TID Coumadin (Warfarin Sodium) 4 Mg Tablet 4 Mg PO DAILY16 Clonidine Hcl 0.1 Mg Tablet 0.1 Mg PO TID Calcium 600 + Vit D 200 Tablet (Calcium Carbonate/Vitamin D3) 1 Each Tablet 1 Tab PO BID Budesonide 0.5 Mg/2 Ml Ampul.neb 0.5 Mg IH BID Bisoprolol Fumarate 10 Mg Tablet 10 Mg PO DAILY Atorvastatin Calcium 80 Mg Tablet 80 Mg PO QHS Aspir-Low (Aspirin) 81 Mg Tablet.dr 81 Mg PO DAILY Albuterol Sulfate Neb Soln (Albuterol Sulfate) 2.5 Mg/3 Ml Vial.neb 2.5 Mg NEB PRN Q2HR PRN Diagnosis: Problems: (1) Bipolar disorder (2) Behavioral problem (3) Anxiety disorder (4) Impulse control disorder (5) Major depressive disorder, recurrent episode (6) Bipolar affective disorder, mixed LISA MAGANA MD Apr 28, 2017 21:02
--- NOTE | 2017-04-28 22:22 | NUR ---
Behavior Intervention Response and Plan: BIRP Note: Behavior: Assumed Care of patient, patient located in Patient Room at shift change. Patient exhibited the following behavior Irritable, Withdrawn, Agitated. Brief assessment on rounds of vital signs, medication needs, lab studies, and pain. Treatment plan problems 1 and 2. Intervention: Patient assessed and the following interventions initiated safety checks 15 Minute Checks Cognitive Assessment , Head to toe Assessment , Medications. Response: After interactions and interventions patient responded in the following manner, Irritable , Compliant ,Cooperative. Continue to assess behaviors and condition will continue to monitor throughout the shift as needed. Patient educated on ADL's, and hand hygiene. 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 Continue to assess patient for changes in above assessment. Monitor for medication needs, pain, and safety concerns. Hourly rounding performed to ensure safe environment.
--- NOTE | 2017-04-29 00:59 | PN ---
DATE: 04/27/2017 This late entry for 04/27/2017 covers elements not covered in my initial note of 04/27/2017. SUBJECTIVE: I met with the patient individually in his room the evening of 04/27/2017. Overall, the patient has been fairly cooperative on the unit, states his mood is better. I have carefully reviewed his past psychiatric history of bipolar disorder at length. There are no clear manic episodes, but repeated episodes of depression, suggestive of bipolar 2 disorder. He is currently on Depakote, which would be appropriate if his diagnosis was bipolar 1, but again, he has not had any significant manic episodes. REVIEW OF SYSTEMS: No CV, , pulmonary, eye, ENT system symptoms on review. MENTAL STATUS EXAMINATION: Reasonably oriented. Speech is coherent, abstraction fair, computation impaired, language function intact, attention span short. Mood and affect somewhat dysphoric, but showing improvement. No suicidal or homicidal ideation. DIAGNOSES: Bipolar 2 disorder, depressed, in partial remission; anxiety disorder, unspecified. Rest unchanged. PLAN: I had a lengthy discussion with the patient and agreed to changing the Depakote to Lamictal 25 mg at bedtime for 3 days, then 50 mg p.o. at bedtime thereafter. Discussed potential side effects including Rachel-Joseph syndrome, answered his questions, he understands and consents. Continue the rest of his psychotropics including Cymbalta 30 mg a day, Klonopin 0.5 mg t.i.d. plus p.r.n. We will try and taper the scheduled Klonopin. Continue Restoril p.r.n., Zyprexa p.r.n. Carefully reviewed drug interactions, risk/benefit ratio, favors no further change at this time. MAN Mery MAGANA MD DR: HARDIK/sandro JOB#: [id number] / [id number]
[2017-04-29 05:45] VITALS: BP 133/82
[2017-04-29] MEDS: IPRATRPIUM/ALBUTEROL 0.5/2.5MG 3 ML NEBU. NEB SCH ×4 (05:53→21:38)
[2017-04-29] MEDS: LEVOTHYROXINE 50 MCG TABLET PO SCH (06:01)
[2017-04-29 07:27] LABS: BASO # 0.1 x10^3/uL (0.0-0.2); BASO % 1 % (0-3); EOS # 0.2 x10^3/uL (0.0-0.7); EOS % 2 % (0-3); HEMATOCRIT 39.8 % (39.0-53.0); HEMOGLOBIN 13.1 g/dL (13.0-17.5); LYMPH # 1.9 x10^3/uL (1.0-4.8); LYMPH % 24 % (24-48); MEAN CORPUSCULAR HEMOGLOBIN 28 pg (25-35); MEAN CORPUSCULAR HGB CONC 33 g/dL (31-37); MEAN CORPUSCULAR VOLUME 84 fL (79-100); MONO % 13 % (0-9); NEUT # 4.6 x10^3uL (1.8-7.7); NEUT % 60 % (31-73); PLATELET COUNT 143 x10^3/uL (140-400); RED BLOOD COUNT 4.76 x10^6/uL (4.30-5.70); RED CELL DISTRIBUTION WIDTH 17.9 % (11.5-14.5); WHITE BLOOD COUNT 7.8 x10^3/uL (4.0-11.0)
[2017-04-29 07:47] LABS: ALBUMIN 3.3 g/dL (3.4-5.0); ALBUMIN/GLOBULIN RATIO 1.3 (1.0-1.7); CALCIUM 7.9 mg/dL (8.5-10.1); CREATININE 1.1 mg/dL (0.7-1.3); GFR 69.2; POTASSIUM 3.9 mmol/L (3.5-5.1); TOTAL BILIRUBIN 0.5 mg/dL (0.2-1.0); TOTAL PROTEIN 5.9 g/dL (6.4-8.2)
--- NOTE | 2017-04-29 08:00 | NUR ---
Patient at window asking what it would take to "leave right now" because he is aware that he is a self signer. Stating that he has "just about had it" and "can't take it anymore". When asked for clarification, he stated that he feels on edge, stating it might be the med change or his anxiety. Vitals within normal range, patient pacing in hallway and appears anxious. States he is sweating, skin feels cool to the touch. Will continue to monitor.
--- NOTE | 2017-04-29 08:00 | NUR ---
WEEKLY THERAPEUTIC RECREATION NOTE: Date of Admission: 04/22/2017 Date of AT Assessment: 04/23/2017 Goal aimed: To educate on time management, leisure awareness and increase motivation Initial goal: Pt. will participate in all group and individual sessions focused on time management and leisure awareness. Weekly progress towards goal: Did not achieve Group participation level: Pt. participates in groups but tends to wanders in and out, finding something to do on his own. He takes time to himself regularly. He tried to get others to engaged in programs. Behaviors observed: Calm, social, helpful Plan: No changes to goal
[2017-04-29] MEDS: CALCIUM POLYCARBOPHIL 625 MG TABLET PO SCH (08:29)
[2017-04-29] MEDS: CHOLECALCIFEROL (VITAMIN D3) 1,000 UNIT TABLET PO SCH (08:30)
[2017-04-29] MEDS: ATENOLOL 25 MG TABLET PO SCH (08:30)
[2017-04-29] MEDS: ISOSORBIDE MONONITRATE ER 30 MG TAB.ER.24H PO SCH (08:30)
[2017-04-29] MEDS: ASPIRIN ENTERIC COATED 81 MG TABLET.DR. PO SCH (08:31)
[2017-04-29] MEDS: DULoxetine HCL 30 MG CAPSULE.DR PO SCH (08:31)
[2017-04-29] MEDS: LOSARTAN 50 MG TABLET. PO SCH (08:31)
[2017-04-29] MEDS: SENNOSIDES/DOCUSATE 8.6/50MG TABLET. PO SCH (08:31)
[2017-04-29] MEDS: THEOPHYLLINE ANHYDROUS 400 MG TABLET.ER. PO SCH ×2 (08:32→19:23)
[2017-04-29] MEDS: CALCIUM CARB/VIT D3 500/200 TABLET PO SCH ×2 (08:32→17:09)
[2017-04-29] MEDS: POTASSIUM CHLORIDE 20 MEQ TABLET.ER. PO SCH (08:32)
[2017-04-29] MEDS: TORSEMIDE 20 MG TABLET. PO SCH (08:33)
[2017-04-29] MEDS: cloNIDine HCL 0.1 MG TABLET PO SCH ×3 (08:33→19:20)
[2017-04-29] MEDS: clonazePAM 0.5 MG TABLET PO SCH ×3 (08:37→19:22)
[2017-04-29] MEDS: HYDROmorphone 2 MG TABLET PO PRN ×2 (08:37→19:20)
[2017-04-29] MEDS: INSULIN ASPART 300 UNITS/3 ML INSULN.PEN SQ SCH ×3 (08:42→17:11)
--- NOTE | 2017-04-29 08:58 | NUR ---
Patient returned to the nurses station to apologize for his "previous outburst" and stated that he did not necessarily want to leave "right now", but couldn't imagine staying here until next week sometime. He stated that he just wanted to know what the process was for leaving AMA. Patient was informed that the doctor feels it is in his best interest to stay, and that if he chose AMA, insurance may or may not pay, and he would not receive a discharge packet upon leaving. He states he regrets having signed in to a [facility] unit and stated he may have been better in an adult unit. Patient took morning medications, and stated that he hoped he felt better. Will advise social work and dr. rich of patients comments and continue to monitor.
--- NOTE | 2017-04-29 09:30 | NUR ---
Patient complaint of pain 6/10 in right knee. Given PRN Dilaudid for pain per order and will continue to monitor pain level.
--- NOTE | 2017-04-29 10:13 | NUR ---
Patient is stating he feels better and less anxious at this time and is not considering leaving AMA right now.
--- NOTE | 2017-04-29 10:15 | NUR ---
Behavior Intervention Response and Plan: BIRP Note: Behavior: Assumed Care of patient, patient located in Hallway at shift change. Patient exhibited the following behavior Attention Seeking, Irritable, Agitated. Brief assessment on rounds of vital signs, medication needs, lab studies, and pain. Treatment plan problems 1 and 2. Intervention: Patient assessed and the following interventions initiated safety checks 15 Minute Checks Cognitive Assessment , Head to toe Assessment , Medications. Response: After interactions and interventions patient responded in the following manner, Compliant , Attention Seeking ,Sarcastic. Continue to assess behaviors and condition will continue to monitor throughout the shift as needed. Patient educated on ADL's, and hand hygiene. Plan: Continue to monitor Master Treatment Plan for patient's progress toward short term goals of Decreased Agitation, Decreased Anxiety, alf goals to return to previous living setting vs placement. Continue to assess patient for changes in above assessment. Monitor for medication needs, pain, and safety concerns. Hourly rounding performed to ensure safe environment.
--- NOTE | 2017-04-29 10:45 | NUR ---
THERAPEUTIC RECREATION GROUP NOTE TITLE :Balloon/Pool Noodle ACTIVITY : Activities and Games GOAL : Increase alertness, focus, morale, decrease stress, team building, positive communication DURATION : 30 Minutes RESPONSE : No participation
--- NOTE | 2017-04-29 11:15 | NUR ---
THERAPEUTIC RECREATION GROUP NOTE TITLE :Movement to Music: Strength ACTIVITY : Movement/ Exercise GOAL : Increase morale, attention, flexibility. Decrease stress/anxiety. DURATION : 45 Minutes RESPONSE : No participation
--- NOTE | 2017-04-29 11:33 | NUR ---
SW met with pt one on one pt states he hasn't felt that great this am, and is concerned about the medications, pt states he was thinking about asking to leave on Wednesday AMA however, states he realizes if his medications are not correct he will be back in the hosptial. Pt reports he wants to make sure he doesn't have to go back out to a hospital as he wants to focus on becoming stronger and returning to the community.
[2017-04-29] MEDS: BUDESONIDE 0.5 MG/2 ML NEBU NEB SCH ×2 (11:35→21:38)
--- NOTE | 2017-04-29 14:20 | NUR ---
THERAPEUTIC RECREATION GROUP NOTE TITLE :Fall Festival: Apple Cider, Pumpkin Bread and Tin Can Painting ACTIVITY : Social Events/ Holidays GOAL : Facilitate sense of belonging and well-being, elevate mood, increase socialization. Incorporate traditions. DURATION : 80 Minutes RESPONSE : Minimal participation. Pt. started with the group, collected the treats and went back to his room he said to rest his leg.
[2017-04-29 16:19] VITALS: BP 124/78
[2017-04-29] MEDS: WARFARIN 4 MG TABLET. PO SCH (17:09)
--- NOTE | 2017-04-29 18:16 | NUR ---
patient advised Dr. Garcia on rounds that he is feeling agitated and anxious. Given PRN zyprexa 5mg per order for agitation/anxiety and will continue to monitor.
--- NOTE | 2017-04-29 18:45 | NUR ---
Patient came to nurses station very upset and stating that he has "anxiety on his anxiety" and was doing much better Sat, Sun, Mon before most recent med change was made. States that the zyprexa did not work, and that he wants to leave. Will continue to monitor.
[2017-04-29] MEDS: ATORVASTATIN CALCIUM 20 MG TABLET PO SCH (19:20)
[2017-04-29] MEDS: lamoTRIgine 25 MG TABLET. PO SCH (19:20)
[2017-04-29] MEDS: TEMAZEPAM 15 MG CAPSULE PO PRN (19:22)
[2017-04-29] MEDS: INSULIN DETEMIR 300 UNITS/3 ML INSULN.PEN. SQ SCH (19:28)
--- NOTE | 2017-04-29 19:30 | NUR ---
Nursing Note: Pt agitated, anxious, angry at shift change. Pt reports frustration and feeling really "pissed off" because he is not discharging tomorrow. He feels that recent med changes have caused him to feel more anxious and agitated today. This nurse spent time with pt 1:1, discussed expressing his feelings and concerns, as well as different coping mechanisms. Pt denies SI/HI at this time. Pt was provided w/ PRN Dilaudid as ordered for right knee pain as well as PRN Restoril for sleep as requested.
--- NOTE | 2017-04-29 21:00 | PDOC ---
Exam Duong Demential Exam: Duong Note: Please also refer to the separate dictated note~for this date of service dictated separately.~Patient seen individually. Discussed the patient with Nursing staff reviewed the chart.~Reviewed interim history and current functioning. Reviewed vital signs,~Labs/ Radiology~and current medications noted below. Continue current treatment with the changes noted in the dictated addendum note Assessment: Vital Signs: Vital Signs Date Time Temp Pulse Resp B/P (MAP) Pulse Ox O2 Delivery O2 Flow Rate FiO2 04/29/17 20:20 18 98 Room Air 04/29/17 19:20 80 124/78 04/29/17 16:19 98.6 I&O Intake and Output 04/30/17 07:00 Intake Total 1120 ml Balance 1120 ml Intake Oral 1120 ml Labs: Laboratory Tests Test 04/29/17 07:06 04/29/17 08:03 04/29/17 11:27 04/29/17 16:49 White Blood Count 7.8 x10^3/uL (4.0-11.0) Red Blood Count 4.76 x10^6/uL (4.30-5.70) Hemoglobin 13.1 g/dL (13.0-17.5) Hematocrit 39.8 % (39.0-53.0) Mean Corpuscular Volume 84 fL (79-100) Mean Corpuscular Hemoglobin 28 pg (25-35) Mean Corpuscular Hemoglobin Concent 33 g/dL (31-37) Red Cell Distribution Width 17.9 % (11.5-14.5) H Platelet Count 143 x10^3/uL (140-400) Neutrophils (%) (Auto) 60 % (31-73) Lymphocytes (%) (Auto) 24 % (24-48) Monocytes (%) (Auto) 13 % (0-9) H Eosinophils (%) (Auto) 2 % (0-3) Basophils (%) (Auto) 1 % (0-3) Neutrophils # (Auto) 4.6 x10^3uL (1.8-7.7) Lymphocytes # (Auto) 1.9 x10^3/uL (1.0-4.8) Monocytes # (Auto) 1.0 x10^3/uL (0.0-1.1) Eosinophils # (Auto) 0.2 x10^3/uL (0.0-0.7) Basophils # (Auto) 0.1 x10^3/uL (0.0-0.2) Sodium Level 142 mmol/L (136-145) Potassium Level 3.9 mmol/L (3.5-5.1) Chloride Level 106 mmol/L (98-107) Carbon Dioxide Level 33 mmol/L (21-32) H Anion Gap 3 (6-14) L Blood Urea Nitrogen 19 mg/dL (8-26) Creatinine 1.1 mg/dL (0.7-1.3) Estimated GFR (Cockcroft-Gault) 69.2 BUN/Creatinine Ratio 17 (6-20) Glucose Level 110 mg/dL (70-99) H Calcium Level 7.9 mg/dL (8.5-10.1) L Magnesium Level 2.0 mg/dL (1.8-2.4) Total Bilirubin 0.5 mg/dL (0.2-1.0) Aspartate Amino Transferase (AST) 21 U/L (15-37) Alanine Aminotransferase (ALT) 23 U/L (16-63) Alkaline Phosphatase 77 U/L (46-116) Total Protein 5.9 g/dL (6.4-8.2) L Albumin 3.3 g/dL (3.4-5.0) L Albumin/Globulin Ratio 1.3 (1.0-1.7) Glucose (Fingerstick) 110 mg/dL (70-99) H 161 mg/dL (70-99) H 135 mg/dL (70-99) H Test 04/29/17 19:00 Glucose (Fingerstick) 191 mg/dL (70-99) H Current Medications: Meds: Current Medications Clonazepam (KlonoPIN) 0.5 mg 1X ONCE PO ; Start 04/22/17 at 20:15; Stop at 20:15; Status DC Clonazepam (KlonoPIN) 0.5 mg 1X ONCE PO Last administered on 04/22/17t 20:20; Start 04/22/17 at 20:15; Stop 04/22/17 at 20:16; Status DC Acetaminophen (Tylenol) 650 mg PRN Q6HRS PRN PO PAIN / TEMP; Start 04/22/17 at 21:00 Multi-Ingredient Ointment (Analgesic Crossroads) 1 ismael PRN QID PRN TP MUSCLE PAIN; Start 04/22/17 at 21:00 Al Hydroxide/Mg Hydroxide (Mylanta Plus Xs) 15 ml PRN AFTMEALHC PRN PO DYSPEPSIA; Start 04/22/17 at 21:00; Status UNV Magnesium Hydroxide (Milk Of Magnesia) 2,400 mg PRN QHS PRN PO CONSTIPATION; Start 04/22/17 at 21:00 Clonazepam (KlonoPIN) 0.5 mg PRN DAILY PRN PO ANXIETY; Start 04/22/17 at 21:00 Clonazepam (KlonoPIN) 0.5 mg TID PO Last administered on 04/29/17 19:22; Start 04/22/17 at 21:30 Divalproex Sodium (Depakote) 250 mg TID PO Last administered on 04/27/17 14:06 ; Start 04/22/17 at 21:30; Stop 04/27/17 at 18:20; Status DC Sertraline HCl (Zoloft) 150 mg DAILY PO Last administered on 04/23/17 08:10; Start 04/23/17 at 09:00; Stop 04/23/17 at 20:15; Status DC Albuterol Sulfate (Ventolin) 2.5 mg STK-MED ONCE .ROUTE ; Start 04/22/17 at 18: 56; Stop 04/22/17 at 20:56; Status DC Budesonide (Pulmicort) 0.5 mg STK-MED ONCE .ROUTE ; Start 04/22/17 at 18:56; Stop 04/22/17 at 20:56; Status DC Albuterol Sulfate (Ventolin) 2.5 mg PRN Q2HR PRN NEB WHEEZING; Start 04/22/17 at 21:00 Aspirin (Aspirin Enteric Coated) 81 mg DAILY PO Last administered on 04/29/17 08:31; Start 04/23/17 at 09:00 Budesonide (Pulmicort) 0.5 mg BID NEB Last administered on 04/29/17 11:35; Start 04/22/17 at 21:00 Calcium Polycarbophil (Fibercon) 1,250 mg DAILY PO Last administered on 07:34; Start 04/23/17 at 09:00; Stop 04/27/17 at 15:07; Status DC Vitamin D (Vitamin D3) 2,000 unit DAILY PO Last administered on 04/29/17 08:30 ; Start 04/23/17 at 09:00 Clonidine HCl (Catapres) 0.1 mg TID PO Last administered on 04/29/17 19:20; Start 04/22/17 at 21:30 Guaifenesin (Mucinex Er) 600 mg Q12HR PO Last administered on 04/29/17 19:28; Start 04/22/17 at 21:30 Hydralazine HCl (Apresoline) 50 mg TID PO Last administered on 04/29/17 19:20 ; Start 04/22/17 at 21:30 Hydromorphone HCl (Dilaudid) 2 mg PRN Q3HRS PRN PO PAIN Last administered on 19:20; Start 04/22/17 at 21:00 Insulin Aspart (NovoLOG) 6 units TIDWMEALS SQ Last administered on 04/29/17 17 :11; Start 04/23/17 at 08:00 Albuterol/ Ipratropium (Duoneb) 3 ml QID NEB Last administered on 04/22/17 21: 00; Start 04/22/17 at 21:00; Stop 04/22/17 at 21:23; Status DC Levothyroxine Sodium (Synthroid) 50 mcg DAILY07 PO Last administered on 06:01; Start 04/23/17 at 07:00 Losartan Potassium (Cozaar) 50 mg DAILY PO Last administered on 04/29/17 08:31 ; Start 04/23/17 at 09:00 Al Hydroxide/Mg Hydroxide (Mylanta Plus Xs) 15 ml PRN Q4HRS PRN PO DYSPEPSIA; Start 04/22/17 at 21:00 Nitroglycerin (Nitrostat) 0.4 mg PRN Q5MIN PRN SL CHEST PAIN; Start 04/22/17 at 21:00 Potassium Chloride (Klor-Con) 40 meq DAILY PO Last administered on 04/29/17 08 :32; Start 04/23/17 at 09:00 Senna/Docusate Sodium (Senna Plus) 1 tab DAILY PO Last administered on 08:31; Start 04/23/17 at 09:00 Theophylline (Theophylline Extended Release) 200 mg BID PO Last administered on 04/29/17 19:23; Start 04/22/17 at 21:30 Torsemide (Demadex) 40 mg DAILY PO Last administered on 04/29/17 08:33; Start 04/23/17 at 09:00 Warfarin Sodium (Coumadin) 4 mg DAILY16 PO Last administered on 04/29/17 17:09 ; Start 04/23/17 at 16:00 Atorvastatin Calcium (Lipitor) 80 mg QHS PO Last administered on 04/29/17 19: 20; Start 04/23/17 at 21:00 Atenolol (Tenormin) 100 mg DAILY PO Last administered on 04/29/17 08:30; Start 04/23/17 at 09:00 Calcium/Vitamin D (Oscal D 500mg/ 200uts) 1 tab BIDWMEALS PO Last administered on 04/29/17 17:09; Start 04/23/17 at 08:00 Non-Formulary Medication 20 mcg Q12HR NEB ; Start 04/22/17 at 21:00; Status UNV Insulin Detemir (Levemir) 8 units QHS SQ Last administered on 04/29/17 19:28; Start 04/22/17 at 22:00 Isosorbide Mononitrate (Imdur) 120 mg DAILY PO Last administered on 04/29/17 08:30; Start 04/23/17 at 09:00 Albuterol/ Ipratropium (Duoneb) 3 ml RTQID NEB Last administered on 04/29/17 16:47; Start 04/23/17 at 08:00 Warfarin Sodium (Coumadin Per Physician) 1 each PRN DAILY PRN MC SEE COMMENTS; Start 04/22/17 at 21:45; Stop 04/23/17 at 20:23; Status DC Temazepam (Restoril) 15 mg PRN QHS PRN PO INSOMNIA, MAY REPEAT X1 Last administered on 04/29/17 19:22; Start 04/22/17 at 22:30 Olanzapine (ZyPREXA ZYDIS) 5 mg PRN Q2HR PRN PO Agitation Last administered on 04/29/17 18:12; Start 04/22/17 at 22:30 Albuterol/ Ipratropium (Duoneb) 3 ml STK-MED ONCE .ROUTE ; Start 04/23/17 at 02: 56; Stop 04/23/17 at 04:57; Status DC Warfarin Sodium (Coumadin Per Pharmacy) 1 each PRN DAILY PRN MC SEE COMMENTS Last administered on 04/25/17 11:39; Start 04/23/17 at 20:00 Duloxetine HCl (Cymbalta) 30 mg DAILY PO Last administered on 04/29/17 08:31; Start 04/24/17 at 09:00 Calcium Polycarbophil (Fibercon) 1,250 mg DAILY PO Last administered on 08:29; Start 04/27/17 at 15:15 Lamotrigine (LaMICtal) 25 mg HS PO Last administered on 04/29/17 19:20; Start 04/28/17 at 21:00; Stop 05/01/17 at 10:00 Lamotrigine (LaMICtal) 50 mg HS PO ; Start 05/01/17 at 21:00 Active Scripts Active Reported Vitamin D3 (Cholecalciferol (Vitamin D3)) 1,000 Unit Tablet 2,000 Unit PO DAILY Torsemide 20 Mg Tablet 40 Mg PO DAILY Theochron (Theophylline Anhydrous) 200 Mg Tab.er.12h 200 Mg PO BID Zoloft (Sertraline Hcl) 100 Mg Tablet 150 Mg PO DAILY Senna-S Tablet (Sennosides/Docusate Sodium) 1 Each Tablet 1 Tab PO DAILY Klor-Con M20 (Potassium Chloride) 20 Meq Tab.er.prt 40 Meq PO DAILY Novolog Flexpen (Insulin Aspart) 100 Unit/1 Ml Insuln.pen 6 Unit SQ TIDWMEALS NITROGLYCERIN SubLingual (Nitroglycerin) 0.4 Mg Tab.subl 0.4 Mg SL PRN Q5MIN PRN Mag-Al Plus Xs Suspension (Mag Hydrox/Al Hydrox/Simeth) 30 Ml Oral.susp 15 Ml PO PRN Q4HRS PRN Mucinex (Guaifenesin) 600 Mg Tablet.er 600 Mg PO Q12HR Losartan Potassium 50 Mg Tablet 50 Mg PO DAILY Levothyroxine Sodium 50 Mcg Tablet 50 Mcg PO DAILY07 Lantus Solostar (Insulin Glargine,Hum.rec.anlog) 100 Unit/1 Ml Insuln.pen 8 Unit SQ QHS Klonopin (Clonazepam) 0.5 Mg Tablet 0.5 Mg PO TID Klonopin (Clonazepam) 0.5 Mg Tablet 0.5 Mg PO PRN DAILY PRN Isosorbide Mononitrate Er (Isosorbide Mononitrate) 120 Mg Tab.er.24h 120 Mg PO DAILY Hydralazine Hcl 50 Mg Tablet 50 Mg PO TID Perforomist (Formoterol Fumarate) 20 Mcg/2 Ml Vial.neb 20 Mcg NEB Q12HR Fibercon (Calcium Polycarbophil) 625 Mg Tablet 1,250 Mg PO DAILY Duoneb 0.5-3(2.5) Mg/3 Ml (Albuterol/Ipratropium) 3 Ml Ampul.neb 3 Ml NEB QID Dilaudid (Hydromorphone Hcl) 2 Mg Tablet 2 Mg PO PRN Q3HRS PRN Depakote (Divalproex Sodium) 250 Mg Tablet.dr 250 Mg PO TID Coumadin (Warfarin Sodium) 4 Mg Tablet 4 Mg PO DAILY16 Clonidine Hcl 0.1 Mg Tablet 0.1 Mg PO TID Calcium 600 + Vit D 200 Tablet (Calcium Carbonate/Vitamin D3) 1 Each Tablet 1 Tab PO BID Budesonide 0.5 Mg/2 Ml Ampul.neb 0.5 Mg IH BID Bisoprolol Fumarate 10 Mg Tablet 10 Mg PO DAILY Atorvastatin Calcium 80 Mg Tablet 80 Mg PO QHS Aspir-Low (Aspirin) 81 Mg Tablet.dr 81 Mg PO DAILY Albuterol Sulfate Neb Soln (Albuterol Sulfate) 2.5 Mg/3 Ml Vial.neb 2.5 Mg NEB PRN Q2HR PRN Diagnosis: Problems: (1) Bipolar disorder (2) Behavioral problem (3) Anxiety disorder (4) Impulse control disorder (5) Major depressive disorder, recurrent episode (6) Bipolar affective disorder, mixed LISA MAGANA MD Apr 29, 2017 21:00
--- NOTE | 2017-04-29 22:40 | PN ---
DATE: 04/28/2017 This is a late entry for 04/28/2017 and covers the elements not covered in my initial note of 04/28/2017. SUBJECTIVE: I met with the patient in the evening of 04/28/2017. Per nursing report, he has been compliant with medications, attends activities, groups for crafts, was reading books earlier in the day, later complained of being tired of reading, slept 4-1/4 hours previous evening, this is partly because the Depakote was stopped. He did receive a repeat dosage of Restoril 15 mg. He denies active suicidal ideation. REVIEW OF SYSTEMS: No CV, , pulmonary, eye system symptoms on review. MENTAL STATUS EXAM: Reasonably oriented. Speech is coherent, abstraction fair, computation reasonable, language function intact, attention span short. Mood and affect somewhat dysphoric, but improved. No suicidal or homicidal ideation. IMPRESSION: Unchanged from initial note. PLAN: Continue current psychotropics, gradually increase the Lamictal in place of the Depakote, reviewed drug interactions. Risk/benefit ratio favors no further changes currently. MAN Mery MAGANA MD DR: HARDIK/sandro JOB#: [id number] / [id number]
--- NOTE | 2017-04-29 22:50 | NUR ---
Behavior Intervention Response and Plan: BIRP Note: Behavior: Assumed Care of patient, patient located in Hallway at shift change. Patient exhibited the following behavior Anxious, Agitated, Demanding. Brief assessment on rounds of vital signs, medication needs, lab studies, and pain. Treatment plan problems 1 and 2. Intervention: Patient assessed and the following interventions initiated safety checks 15 Minute Checks Cognitive Assessment , Head to toe Assessment , Medications. Response: After interactions and interventions patient responded in the following manner, Restless , Compliant ,Irritable. Continue to assess behaviors and condition will continue to monitor throughout the shift as needed. Patient educated on ADL's, and hand hygiene. Plan: Continue to monitor Master Treatment Plan for patient's progress toward short term goals of Decreased Agitation, No harm To self/ others, petroleum terminal plant operator goals to return to previous living setting vs placement. Continue to assess patient for changes in above assessment. Monitor for medication needs, pain, and safety concerns. Hourly rounding performed to ensure safe environment.
[2017-04-30 05:51] VITALS: BP 134/89
[2017-04-30] MEDS: LEVOTHYROXINE 50 MCG TABLET PO SCH (06:02)
[2017-04-30] MEDS: IPRATRPIUM/ALBUTEROL 0.5/2.5MG 3 ML NEBU. NEB SCH ×4 (06:04→20:06)
[2017-04-30] MEDS: INSULIN ASPART 300 UNITS/3 ML INSULN.PEN SQ SCH ×3 (08:18→17:44)
[2017-04-30] MEDS: CALCIUM POLYCARBOPHIL 625 MG TABLET PO SCH (08:18)
[2017-04-30] MEDS: THEOPHYLLINE ANHYDROUS 400 MG TABLET.ER. PO SCH ×2 (08:19→19:44)
[2017-04-30] MEDS: ATENOLOL 25 MG TABLET PO SCH (08:20)
[2017-04-30] MEDS: SENNOSIDES/DOCUSATE 8.6/50MG TABLET. PO SCH (08:20)
[2017-04-30] MEDS: DULoxetine HCL 30 MG CAPSULE.DR PO SCH (08:21)
[2017-04-30] MEDS: LOSARTAN 50 MG TABLET. PO SCH (08:21)
[2017-04-30] MEDS: ASPIRIN ENTERIC COATED 81 MG TABLET.DR. PO SCH (08:21)
[2017-04-30] MEDS: CALCIUM CARB/VIT D3 500/200 TABLET PO SCH ×2 (08:21→16:24)
[2017-04-30] MEDS: POTASSIUM CHLORIDE 20 MEQ TABLET.ER. PO SCH (08:22)
[2017-04-30] MEDS: cloNIDine HCL 0.1 MG TABLET PO SCH ×3 (08:22→19:41)
[2017-04-30] MEDS: TORSEMIDE 20 MG TABLET. PO SCH (08:23)
[2017-04-30] MEDS: ISOSORBIDE MONONITRATE ER 30 MG TAB.ER.24H PO SCH (08:23)
[2017-04-30] MEDS: CHOLECALCIFEROL (VITAMIN D3) 1,000 UNIT TABLET PO SCH (08:23)
[2017-04-30] MEDS: clonazePAM 0.5 MG TABLET PO SCH ×3 (08:25→19:44)
[2017-04-30] MEDS: HYDROmorphone 2 MG TABLET PO PRN ×2 (08:31→13:19)
--- NOTE | 2017-04-30 08:32 | NUR ---
patient complains of pain in right knee rated 7/10. given PRN dilaudid per order and will continue to monitor.
--- NOTE | 2017-04-30 08:40 | NUR ---
Weekly update note: SW met with pt one on one daily as well as SW office has tried to engage him in group activities. Pt at one point talked about wanting to leave, SW met with him on at length regarding this, pt states he has decided to stay due to the change in Medications and wanting to make sure the medications were working and not wanting to have to return here or to another inpt facility. Pt is agreement with current treatment plan possible d/c on Wednesday if weekend goes well per Dr. Garcia. Pt verbally agrees to this, and has signed treatment plan paperwork.
--- NOTE | 2017-04-30 10:40 | NUR ---
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 When asked how his morning was going, Pt. explained better than the last couple days. Pt. went on to explain how the medication changes have been affecting his mind, attitude, and body in a negative way. Pt. appeared defeated and wondered how many medications it was going to take to make him feel "normal". He compared his first couple days when he felt great to the last couple days. He stated again that today is starting off a little better. He thanked HOT STONE SETTER for listening. HOT STONE SETTER reassured him and encouraged him to continue to communicate with the nurses and doctors.
[2017-04-30] MEDS: BUDESONIDE 0.5 MG/2 ML NEBU NEB SCH ×2 (11:27→20:06)
--- NOTE | 2017-04-30 11:27 | NUR ---
patient observed to be in day room laughing and talking. Will continue to monitor.
--- NOTE | 2017-04-30 11:27 | NUR ---
Behavior Intervention Response and Plan: BIRP Note: Behavior: Assumed Care of patient, patient located in Patient Room at shift change. Patient exhibited the following behavior Irritable, Compliant, Cooperative. Brief assessment on rounds of vital signs, medication needs, lab studies, and pain. Treatment plan problems 1 and 2. Intervention: Patient assessed and the following interventions initiated safety checks 15 Minute Checks Cognitive Assessment , Head to toe Assessment , Medications. Response: After interactions and interventions patient responded in the following manner, Demanding , Compliant ,Sarcastic. Continue to assess behaviors and condition will continue to monitor throughout the shift as needed. Patient educated on ADL's, and hand hygiene. 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 Continue to assess patient for changes in above assessment. Monitor for medication needs, pain, and safety concerns. Hourly rounding performed to ensure safe environment.
[2017-04-30 13:17] VITALS: BP 119/72
--- NOTE | 2017-04-30 13:21 | NUR ---
patient requested pain medication, rated pain 7/10. Given PRN dilaudid per order and will continue to monitor pain level.
--- NOTE | 2017-04-30 13:30 | NUR ---
Patient agitated. He opened the shower door, kicked it ,said "I'm not taking a fucking shower here" and then stomped down the hallway to his room. Pt had just received scheduled anxiety medication as well as pain medication. Will continue to monitor patients behavior.
--- NOTE | 2017-04-30 14:10 | NUR ---
patient spoke with this nurse, stated he is "feeling mean and yelling at people". Given PRN zyprexa per his request and will continue to monitor.
[2017-04-30 16:06] VITALS: BP 120/76
[2017-04-30] MEDS: WARFARIN 4 MG TABLET. PO SCH (16:24)
[2017-04-30] MEDS: ATORVASTATIN CALCIUM 20 MG TABLET PO SCH (19:42)
[2017-04-30] MEDS: lamoTRIgine 25 MG TABLET. PO SCH (19:42)
[2017-04-30] MEDS: INSULIN DETEMIR 300 UNITS/3 ML INSULN.PEN. SQ SCH (19:45)
[2017-04-30] MEDS: TEMAZEPAM 15 MG CAPSULE PO PRN (20:41)
--- NOTE | 2017-04-30 20:52 | PDOC ---
Exam Duong Demential Exam: Duong Note: Please also refer to the separate dictated note~for this date of service dictated separately.~Patient seen individually. Discussed the patient with Nursing staff reviewed the chart.~Reviewed interim history and current functioning. Reviewed vital signs,~Labs/ Radiology~and current medications noted below. Continue current treatment with the changes noted in the dictated addendum note Assessment: Vital Signs: Vital Signs Date Time Temp Pulse Resp B/P (MAP) Pulse Ox O2 Delivery O2 Flow Rate FiO2 04/30/17 20:09 Room Air 04/30/17 20:05 96 04/30/17 19:41 77 120/76 04/30/17 16:06 97.5 18 I&O Intake and Output 05/01/17 07:00 Intake Total 960 ml Balance 960 ml Intake Oral 960 ml Labs: Laboratory Tests Test 04/30/17 07:22 04/30/17 11:07 04/30/17 16:14 04/30/17 19:09 Glucose (Fingerstick) 104 mg/dL (70-99) H 147 mg/dL (70-99) H 115 mg/dL (70-99) H 167 mg/dL (70-99) H Current Medications: Meds: Current Medications Clonazepam (KlonoPIN) 0.5 mg 1X ONCE PO ; Start 04/22/17 at 20:15; Stop at 20:15; Status DC Clonazepam (KlonoPIN) 0.5 mg 1X ONCE PO Last administered on 04/22/17t 20:20; Start 04/22/17 at 20:15; Stop 04/22/17 at 20:16; Status DC Acetaminophen (Tylenol) 650 mg PRN Q6HRS PRN PO PAIN / TEMP; Start 04/22/17 at 21:00 Multi-Ingredient Ointment (Analgesic [place]) 1 ismael PRN QID PRN TP MUSCLE PAIN; Start 04/22/17 at 21:00 Al Hydroxide/Mg Hydroxide (Mylanta Plus Xs) 15 ml PRN AFTMEALHC PRN PO DYSPEPSIA; Start 04/22/17 at 21:00; Status UNV Magnesium Hydroxide (Milk Of Magnesia) 2,400 mg PRN QHS PRN PO CONSTIPATION; Start 04/22/17 at 21:00 Clonazepam (KlonoPIN) 0.5 mg PRN DAILY PRN PO ANXIETY; Start 04/22/17 at 21:00 Clonazepam (KlonoPIN) 0.5 mg TID PO Last administered on 04/30/17 19:44; Start 04/22/17 at 21:30 Divalproex Sodium (Depakote) 250 mg TID PO Last administered on 04/27/17 14:06 ; Start 04/22/17 at 21:30; Stop 04/27/17 at 18:20; Status DC Sertraline HCl (Zoloft) 150 mg DAILY PO Last administered on 04/23/17 08:10; Start 04/23/17 at 09:00; Stop 04/23/17 at 20:15; Status DC Albuterol Sulfate (Ventolin) 2.5 mg STK-MED ONCE .ROUTE ; Start 04/22/17 at 18: 56; Stop 04/22/17 at 20:56; Status DC Budesonide (Pulmicort) 0.5 mg STK-MED ONCE .ROUTE ; Start 04/22/17 at 18:56; Stop 04/22/17 at 20:56; Status DC Albuterol Sulfate (Ventolin) 2.5 mg PRN Q2HR PRN NEB WHEEZING; Start 04/22/17 at 21:00 Aspirin (Aspirin Enteric Coated) 81 mg DAILY PO Last administered on 04/30/17 08:21; Start 04/23/17 at 09:00 Budesonide (Pulmicort) 0.5 mg BID NEB Last administered on 04/30/17 20:06; Start 04/22/17 at 21:00 Calcium Polycarbophil (Fibercon) 1,250 mg DAILY PO Last administered on 07:34; Start 04/23/17 at 09:00; Stop 04/27/17 at 15:07; Status DC Vitamin D (Vitamin D3) 2,000 unit DAILY PO Last administered on 04/30/17 08:23 ; Start 04/23/17 at 09:00 Clonidine HCl (Catapres) 0.1 mg TID PO Last administered on 04/30/17 19:41; Start 04/22/17 at 21:30 Guaifenesin (Mucinex Er) 600 mg Q12HR PO Last administered on 04/30/17 19:41; Start 04/22/17 at 21:30 Hydralazine HCl (Apresoline) 50 mg TID PO Last administered on 04/30/17 19:41 ; Start 04/22/17 at 21:30 Hydromorphone HCl (Dilaudid) 2 mg PRN Q3HRS PRN PO PAIN Last administered on 13:19; Start 04/22/17 at 21:00 Insulin Aspart (NovoLOG) 6 units TIDWMEALS SQ Last administered on 04/30/17 17 :44; Start 04/23/17 at 08:00 Albuterol/ Ipratropium (Duoneb) 3 ml QID NEB Last administered on 04/22/17 21: 00; Start 04/22/17 at 21:00; Stop 04/22/17 at 21:23; Status DC Levothyroxine Sodium (Synthroid) 50 mcg DAILY07 PO Last administered on 06:02; Start 04/23/17 at 07:00 Losartan Potassium (Cozaar) 50 mg DAILY PO Last administered on 04/30/17 08:21 ; Start 04/23/17 at 09:00 Al Hydroxide/Mg Hydroxide (Mylanta Plus Xs) 15 ml PRN Q4HRS PRN PO DYSPEPSIA; Start 04/22/17 at 21:00 Nitroglycerin (Nitrostat) 0.4 mg PRN Q5MIN PRN SL CHEST PAIN; Start 04/22/17 at 21:00 Potassium Chloride (Klor-Con) 40 meq DAILY PO Last administered on 04/30/17 08 :22; Start 04/23/17 at 09:00 Senna/Docusate Sodium (Senna Plus) 1 tab DAILY PO Last administered on 08:20; Start 04/23/17 at 09:00 Theophylline (Theophylline Extended Release) 200 mg BID PO Last administered on 04/30/17 19:44; Start 04/22/17 at 21:30 Torsemide (Demadex) 40 mg DAILY PO Last administered on 04/30/17 08:23; Start 04/23/17 at 09:00 Warfarin Sodium (Coumadin) 4 mg DAILY16 PO Last administered on 04/30/17 16:24 ; Start 04/23/17 at 16:00 Atorvastatin Calcium (Lipitor) 80 mg QHS PO Last administered on 04/30/17 19: 42; Start 04/23/17 at 21:00 Atenolol (Tenormin) 100 mg DAILY PO Last administered on 04/30/17 08:20; Start 04/23/17 at 09:00 Calcium/Vitamin D (Oscal D 500mg/ 200uts) 1 tab BIDWMEALS PO Last administered on 04/30/17 16:24; Start 04/23/17 at 08:00 Non-Formulary Medication 20 mcg Q12HR NEB ; Start 04/22/17 at 21:00; Status UNV Insulin Detemir (Levemir) 8 units QHS SQ Last administered on 04/30/17 19:45; Start 04/22/17 at 22:00 Isosorbide Mononitrate (Imdur) 120 mg DAILY PO Last administered on 04/30/17 08:23; Start 04/23/17 at 09:00 Albuterol/ Ipratropium (Duoneb) 3 ml RTQID NEB Last administered on 04/30/17 20:06; Start 04/23/17 at 08:00 Warfarin Sodium (Coumadin Per Physician) 1 each PRN DAILY PRN MC SEE COMMENTS; Start 04/22/17 at 21:45; Stop 04/23/17 at 20:23; Status DC Temazepam (Restoril) 15 mg PRN QHS PRN PO INSOMNIA, MAY REPEAT X1 Last administered on 04/30/17 20:41; Start 04/22/17 at 22:30 Olanzapine (ZyPREXA ZYDIS) 5 mg PRN Q2HR PRN PO Agitation Last administered on 04/30/17 14:09; Start 04/22/17 at 22:30 Albuterol/ Ipratropium (Duoneb) 3 ml STK-MED ONCE .ROUTE ; Start 04/23/17 at 02: 56; Stop 04/23/17 at 04:57; Status DC Warfarin Sodium (Coumadin Per Pharmacy) 1 each PRN DAILY PRN MC SEE COMMENTS Last administered on 04/25/17 11:39; Start 04/23/17 at 20:00 Duloxetine HCl (Cymbalta) 30 mg DAILY PO Last administered on 04/30/17 08:21; Start 04/24/17 at 09:00 Calcium Polycarbophil (Fibercon) 1,250 mg DAILY PO Last administered on 08:18; Start 04/27/17 at 15:15 Lamotrigine (LaMICtal) 25 mg HS PO Last administered on 04/30/17 19:42; Start 04/28/17 at 21:00; Stop 05/01/17 at 10:00 Lamotrigine (LaMICtal) 50 mg HS PO ; Start 05/01/17 at 21:00 Active Scripts Active Reported Vitamin D3 (Cholecalciferol (Vitamin D3)) 1,000 Unit Tablet 2,000 Unit PO DAILY Torsemide 20 Mg Tablet 40 Mg PO DAILY Theochron (Theophylline Anhydrous) 200 Mg Tab.er.12h 200 Mg PO BID Zoloft (Sertraline Hcl) 100 Mg Tablet 150 Mg PO DAILY Senna-S Tablet (Sennosides/Docusate Sodium) 1 Each Tablet 1 Tab PO DAILY Klor-Con M20 (Potassium Chloride) 20 Meq Tab.er.prt 40 Meq PO DAILY Novolog Flexpen (Insulin Aspart) 100 Unit/1 Ml Insuln.pen 6 Unit SQ TIDWMEALS NITROGLYCERIN SubLingual (Nitroglycerin) 0.4 Mg Tab.subl 0.4 Mg SL PRN Q5MIN PRN Mag-Al Plus Xs Suspension (Mag Hydrox/Al Hydrox/Simeth) 30 Ml Oral.susp 15 Ml PO PRN Q4HRS PRN Mucinex (Guaifenesin) 600 Mg Tablet.er 600 Mg PO Q12HR Losartan Potassium 50 Mg Tablet 50 Mg PO DAILY Levothyroxine Sodium 50 Mcg Tablet 50 Mcg PO DAILY07 Lantus Solostar (Insulin Glargine,Hum.rec.anlog) 100 Unit/1 Ml Insuln.pen 8 Unit SQ QHS Klonopin (Clonazepam) 0.5 Mg Tablet 0.5 Mg PO TID Klonopin (Clonazepam) 0.5 Mg Tablet 0.5 Mg PO PRN DAILY PRN Isosorbide Mononitrate Er (Isosorbide Mononitrate) 120 Mg Tab.er.24h 120 Mg PO DAILY Hydralazine Hcl 50 Mg Tablet 50 Mg PO TID Perforomist (Formoterol Fumarate) 20 Mcg/2 Ml Vial.neb 20 Mcg NEB Q12HR Fibercon (Calcium Polycarbophil) 625 Mg Tablet 1,250 Mg PO DAILY Duoneb 0.5-3(2.5) Mg/3 Ml (Albuterol/Ipratropium) 3 Ml Ampul.neb 3 Ml NEB QID Dilaudid (Hydromorphone Hcl) 2 Mg Tablet 2 Mg PO PRN Q3HRS PRN Depakote (Divalproex Sodium) 250 Mg Tablet.dr 250 Mg PO TID Coumadin (Warfarin Sodium) 4 Mg Tablet 4 Mg PO DAILY16 Clonidine Hcl 0.1 Mg Tablet 0.1 Mg PO TID Calcium 600 + Vit D 200 Tablet (Calcium Carbonate/Vitamin D3) 1 Each Tablet 1 Tab PO BID Budesonide 0.5 Mg/2 Ml Ampul.neb 0.5 Mg IH BID Bisoprolol Fumarate 10 Mg Tablet 10 Mg PO DAILY Atorvastatin Calcium 80 Mg Tablet 80 Mg PO QHS Aspir-Low (Aspirin) 81 Mg Tablet.dr 81 Mg PO DAILY Albuterol Sulfate Neb Soln (Albuterol Sulfate) 2.5 Mg/3 Ml Vial.neb 2.5 Mg NEB PRN Q2HR PRN Diagnosis: Problems: (1) Bipolar disorder (2) Behavioral problem (3) Anxiety disorder (4) Impulse control disorder (5) Major depressive disorder, recurrent episode (6) Bipolar affective disorder, mixed LISA MAGANA MD Apr 30, 2017 20:52
--- NOTE | 2017-04-30 23:42 | NUR ---
Behavior Intervention Response and Plan: BIRP Note: Behavior: Assumed Care of patient, patient located in Patient Room at shift change. Patient exhibited the following behavior Calm, Compliant, Cooperative. Brief assessment on rounds of vital signs, medication needs, lab studies, and pain. Treatment plan problems Danger to Self and Fall Risk. Intervention: Patient assessed and the following interventions initiated safety checks 15 Minute Checks Cognitive Assessment , Head to toe Assessment , Medications. Response: After interactions and interventions patient responded in the following manner, Calm , Compliant ,Cooperative. Continue to assess behaviors and condition will continue to monitor throughout the shift as needed. Patient educated on ADL's, and hand hygiene. Plan: Continue to monitor Master Treatment Plan for patient's progress toward short term goals of Decreased Agitation, Improved Mood, care home goals to return to previous living setting vs placement. Continue to assess patient for changes in above assessment. Monitor for medication needs, pain, and safety concerns. Hourly rounding performed to ensure safe environment.
--- NOTE | 2017-05-01 00:48 | PN ---
DATE: 04/29/2017 This is a late entry for 04/29/2017 and covers elements not covered in my initial note of 04/29/217. I met with the patient the evening of 04/29/2017 and the patient was staffed at a treatment team meeting with the entire team morning of 04/29/2017, reviewed the patient's diagnosis, progress, current psychotropics, reviewed drug interactions and risk/benefit ratio at length. The patient slept reasonably well previous evening, but he continues to have some episodes of anxiety. As I met with him in his room, he said he was felt sweaty and clammy for a period of time, then better towards the evening. He was initially wanting to be discharged AMA, but then agreed to stay through the weekend so we can adjust his Lamictal. REVIEW OF SYSTEMS: No CV, , pulmonary, eye system symptoms on review. MENTAL STATUS EXAM: Reasonably oriented. Speech is coherent, anxious. Abstraction fair, computation impaired, language function intact, attention span short. Mood and affect somewhat anxious, labile at times. LABORATORY DATA: Reviewed. IMPRESSION: Unchanged from initial note. PLAN: Continue psychotropics mentioned in my initial note, increase Lamictal gradually. Reviewed drug interactions, risk/benefit ratio. LISA MAGANA MD DR: HARDIK/sandro JOB#: [id number] / [id number]
--- NOTE | 2017-05-01 02:15 | NUR ---
Nursing Note: Pt awake in room at 0200 very angry, Hostile and Belligerent with staff, yelling that he is freezing because they don't shut the door all the way. Nurse in to speak with pt, Pt remains very angry and Hostile, Punching pillows then smacking hands to his face and rubbing hard, Nurse attempted to explain to pt that staff had to open the door every 15 minutes for visual checks, Pt resumed yelling stating "then they can shut the God Damn door when they leave" Nurse explained to pt that opening and closing the door until it latches will cause excess noise and staff was attempting to prevent waking him with the door opening and closing, Pt then began yelling "Well I am freezing with this air blowing right on me because the door is not closing and I'm going to end up with Pneumonia in the hospital if they don't shut the Damn door" Nurse attempted to explain to pt that the air conditioning could be adjusted to prevent it from blowing on him if is cold, Nurse then explained that this would be an easy thing to fix, Nurse also assured pt that he was assessed every shit and he would not develop Pneumonia from the air blowing in the room, and encouraged pt to calm down and discuss the issue rationally rather than screaming at staff and punching his pillow, Pt then yelled "just get out and stop talking to me like I am Kid" Nurse explained that was not the intention, again attempting to explain that screaming and becoming hostile was not an appropriate response to this issue. Pt again demanded Nurse leave his room and resumed punching his pillow. Nurse exited room, Pt then requested to have a PRN Clonazepam, Nurse entered room with Clonazepam and the Marie to turn off t he air conditioning, Pt stated "see if they leave the door shut then the air will shut off" Nurse did not engage pt further or explain that the air conditioning was turned off since he was complaining of being cold. Nurse exited room at this time
[2017-05-01] MEDS: LEVOTHYROXINE 50 MCG TABLET PO SCH (05:58)
[2017-05-01 06:08] VITALS: BP_SYST 112; BP_SYST 144; BP_DIAS 56; BP_DIAS 92
[2017-05-01] MEDS: CALCIUM CARB/VIT D3 500/200 TABLET PO SCH ×2 (07:36→16:48)
[2017-05-01] MEDS: cloNIDine HCL 0.1 MG TABLET PO SCH ×3 (07:37→20:00)
[2017-05-01] MEDS: ASPIRIN ENTERIC COATED 81 MG TABLET.DR. PO SCH (07:37)
[2017-05-01] MEDS: TORSEMIDE 20 MG TABLET. PO SCH (07:54)
[2017-05-01] MEDS: DULoxetine HCL 30 MG CAPSULE.DR PO SCH (07:54)
[2017-05-01] MEDS: LOSARTAN 50 MG TABLET. PO SCH (07:54)
[2017-05-01] MEDS: CALCIUM POLYCARBOPHIL 625 MG TABLET PO SCH (07:55)
[2017-05-01] MEDS: ISOSORBIDE MONONITRATE ER 30 MG TAB.ER.24H PO SCH (07:55)
[2017-05-01] MEDS: clonazePAM 0.5 MG TABLET PO SCH ×3 (07:55→20:07)
[2017-05-01] MEDS: POTASSIUM CHLORIDE 20 MEQ TABLET.ER. PO SCH (07:56)
[2017-05-01] MEDS: SENNOSIDES/DOCUSATE 8.6/50MG TABLET. PO SCH (07:56)
[2017-05-01] MEDS: ATENOLOL 25 MG TABLET PO SCH (07:57)
[2017-05-01] MEDS: THEOPHYLLINE ANHYDROUS 400 MG TABLET.ER. PO SCH ×2 (07:57→20:08)
[2017-05-01] MEDS: CHOLECALCIFEROL (VITAMIN D3) 1,000 UNIT TABLET PO SCH (07:57)
[2017-05-01] MEDS: INSULIN ASPART 300 UNITS/3 ML INSULN.PEN SQ SCH ×3 (07:59→17:05)
[2017-05-01] MEDS: BUDESONIDE 0.5 MG/2 ML NEBU NEB SCH ×2 (10:12→20:03)
[2017-05-01] MEDS: IPRATRPIUM/ALBUTEROL 0.5/2.5MG 3 ML NEBU. NEB SCH ×4 (10:12→20:03)
--- NOTE | 2017-05-01 10:37 | NUR ---
Behavior Intervention Response and Plan: BIRP Note: Behavior: Assumed Care of patient, patient located in Hallway at shift change. Patient exhibited the following behavior anxious, calm, cooperative, tangential. Brief assessment on rounds of vital signs, medication needs, lab studies, and pain. Treatment plan problems 1 and 2. Intervention: Patient assessed and the following interventions initiated safety checks 15 Minute Checks Cognitive Assessment , Head to toe Assessment , Medications. Response: After interactions and interventions patient responded in the following manner, cooperative, compliant, appropriate, withdrawn to room. Continue to assess behaviors and condition will continue to monitor throughout the shift as needed. Patient educated on ADL's, and hand hygiene. Plan: Continue to monitor Master Treatment Plan for patient's progress toward short term goals of Decreased Agitation, No harm To self/ others, fdc goals to return to previous living setting vs placement. Continue to assess patient for changes in above assessment. Monitor for medication needs, pain, and safety concerns. Hourly rounding performed to ensure safe environment.
[2017-05-01] MEDS: HYDROmorphone 2 MG TABLET PO PRN ×2 (12:04→20:09)
[2017-05-01 13:12] VITALS: BP 113/76
[2017-05-01 16:43] VITALS: BP 125/86
[2017-05-01] MEDS: WARFARIN 4 MG TABLET. PO SCH (16:48)
--- NOTE | 2017-05-01 19:49 | PN ---
DATE: 04/30/2017 This is a late entry of 04/30/2017, covers the elements not covered in the initial note of 04/30/2017. SUBJECTIVE: I met with the patient on evening of 04/30/2017. The patient remains somewhat anxious. He got agitated in the evening when staff offered to have and take a shower. Reportedly, there was worsening mood lability. He was kicking the door, agitated. He states he gets a little more irritable and wondered whether the Depakote was helping the mood lability, which the Lamictal is not so far. We addressed this at length. No CV, , pulmonary, eye, ENT system symptoms on review. MENTAL STATUS EXAM: Reasonably oriented. Speech is coherent, abstraction fair, computation impaired, language function intact, attention span short. Mood and affect, a little more anxious, labile as compared to earlier. No active suicidal or homicidal ideation. LABORATORY DATA: Reviewed. IMPRESSION: Unchanged from initial note. PLAN: Continue psychotropics mentioned in my initial note. Continue to gradually increase the Lamictal, but if mood lability is much worse over time, we may have to go back to Depakote. Discussed all this at some length with the patient and answered his questions. He understands and consents. Reviewed drug interactions, risk/benefit ratio favors no further change LISA MAGANA MD DR: HARDIK/sandro JOB#: [id number] / [id number]
[2017-05-01] MEDS: ATORVASTATIN CALCIUM 20 MG TABLET PO SCH (20:00)
[2017-05-01] MEDS: TEMAZEPAM 15 MG CAPSULE PO PRN (20:08)
[2017-05-01] MEDS: lamoTRIgine 25 MG TABLET. PO SCH (20:10)
--- NOTE | 2017-05-01 21:06 | PDOC ---
Exam Duong Demential Exam: Duong Note: Please also refer to the separate dictated note~for this date of service dictated separately.~Patient seen individually. Discussed the patient with Nursing staff reviewed the chart.~Reviewed interim history and current functioning. Reviewed vital signs,~Labs/ Radiology~and current medications noted below. Continue current treatment with the changes noted in the dictated addendum note Assessment: Vital Signs: Vital Signs Date Time Temp Pulse Resp B/P (MAP) Pulse Ox O2 Delivery O2 Flow Rate FiO2 05/01/17 20:08 Room Air 05/01/17 20:05 96 05/01/17 20:00 80 125/86 05/01/17 16:43 98.0 18 I&O Intake and Output 05/02/17 07:00 Intake Total 1200 ml Balance 1200 ml Intake Oral 1200 ml Labs: Laboratory Tests Test 05/01/17 07:37 05/01/17 11:20 05/01/17 16:53 05/01/17 19:23 Glucose (Fingerstick) 99 mg/dL (70-99) 153 mg/dL (70-99) H 173 mg/dL (70-99) H 140 mg/dL (70-99) H Current Medications: Meds: Current Medications Clonazepam (KlonoPIN) 0.5 mg 1X ONCE PO ; Start 04/22/17 at 20:15; Stop at 20:15; Status DC Clonazepam (KlonoPIN) 0.5 mg 1X ONCE PO Last administered on 04/22/17t 20:20; Start 04/22/17 at 20:15; Stop 04/22/17 at 20:16; Status DC Acetaminophen (Tylenol) 650 mg PRN Q6HRS PRN PO PAIN / TEMP; Start 04/22/17 at 21:00 Multi-Ingredient Ointment (Analgesic [place]) 1 ismael PRN QID PRN TP MUSCLE PAIN; Start 04/22/17 at 21:00 Al Hydroxide/Mg Hydroxide (Mylanta Plus Xs) 15 ml PRN AFTMEALHC PRN PO DYSPEPSIA; Start 04/22/17 at 21:00; Status UNV Magnesium Hydroxide (Milk Of Magnesia) 2,400 mg PRN QHS PRN PO CONSTIPATION; Start 04/22/17 at 21:00 Clonazepam (KlonoPIN) 0.5 mg PRN DAILY PRN PO ANXIETY Last administered on 05/01 02:14; Start 04/22/17 at 21:00 Clonazepam (KlonoPIN) 0.5 mg TID PO Last administered on 05/01/17 20:07; Start 04/22/17 at 21:30 Divalproex Sodium (Depakote) 250 mg TID PO Last administered on 04/27/17 14:06 ; Start 04/22/17 at 21:30; Stop 04/27/17 at 18:20; Status DC Sertraline HCl (Zoloft) 150 mg DAILY PO Last administered on 04/23/17 08:10; Start 04/23/17 at 09:00; Stop 04/23/17 at 20:15; Status DC Albuterol Sulfate (Ventolin) 2.5 mg STK-MED ONCE .ROUTE ; Start 04/22/17 at 18: 56; Stop 04/22/17 at 20:56; Status DC Budesonide (Pulmicort) 0.5 mg STK-MED ONCE .ROUTE ; Start 04/22/17 at 18:56; Stop 04/22/17 at 20:56; Status DC Albuterol Sulfate (Ventolin) 2.5 mg PRN Q2HR PRN NEB WHEEZING; Start 04/22/17 at 21:00 Aspirin (Aspirin Enteric Coated) 81 mg DAILY PO Last administered on 05/01/17 07:37; Start 04/23/17 at 09:00 Budesonide (Pulmicort) 0.5 mg BID NEB Last administered on 05/01/17 20:03; Start 04/22/17 at 21:00 Calcium Polycarbophil (Fibercon) 1,250 mg DAILY PO Last administered on 07:34; Start 04/23/17 at 09:00; Stop 04/27/17 at 15:07; Status DC Vitamin D (Vitamin D3) 2,000 unit DAILY PO Last administered on 05/01/17 07:57 ; Start 04/23/17 at 09:00 Clonidine HCl (Catapres) 0.1 mg TID PO Last administered on 05/01/17 20:00; Start 04/22/17 at 21:30 Guaifenesin (Mucinex Er) 600 mg Q12HR PO Last administered on 05/01/17 20:01; Start 04/22/17 at 21:30 Hydralazine HCl (Apresoline) 50 mg TID PO Last administered on 05/01/17 20:00 ; Start 04/22/17 at 21:30 Hydromorphone HCl (Dilaudid) 2 mg PRN Q3HRS PRN PO PAIN Last administered on 20:09; Start 04/22/17 at 21:00 Insulin Aspart (NovoLOG) 6 units TIDWMEALS SQ Last administered on 05/01/17 17 :05; Start 04/23/17 at 08:00 Albuterol/ Ipratropium (Duoneb) 3 ml QID NEB Last administered on 04/22/17 21: 00; Start 04/22/17 at 21:00; Stop 04/22/17 at 21:23; Status DC Levothyroxine Sodium (Synthroid) 50 mcg DAILY07 PO Last administered on 05:58; Start 04/23/17 at 07:00 Losartan Potassium (Cozaar) 50 mg DAILY PO Last administered on 05/01/17 07:54 ; Start 04/23/17 at 09:00 Al Hydroxide/Mg Hydroxide (Mylanta Plus Xs) 15 ml PRN Q4HRS PRN PO DYSPEPSIA; Start 04/22/17 at 21:00 Nitroglycerin (Nitrostat) 0.4 mg PRN Q5MIN PRN SL CHEST PAIN; Start 04/22/17 at 21:00 Potassium Chloride (Klor-Con) 40 meq DAILY PO Last administered on 05/01/17 07 :56; Start 04/23/17 at 09:00 Senna/Docusate Sodium (Senna Plus) 1 tab DAILY PO Last administered on 07:56; Start 04/23/17 at 09:00 Theophylline (Theophylline Extended Release) 200 mg BID PO Last administered on 05/01/17 20:08; Start 04/22/17 at 21:30 Torsemide (Demadex) 40 mg DAILY PO Last administered on 05/01/17 07:54; Start 04/23/17 at 09:00 Warfarin Sodium (Coumadin) 4 mg DAILY16 PO Last administered on 05/01/17 16:48 ; Start 04/23/17 at 16:00 Atorvastatin Calcium (Lipitor) 80 mg QHS PO Last administered on 05/01/17 20: 00; Start 04/23/17 at 21:00 Atenolol (Tenormin) 100 mg DAILY PO Last administered on 05/01/17 07:57; Start 04/23/17 at 09:00 Calcium/Vitamin D (Oscal D 500mg/ 200uts) 1 tab BIDWMEALS PO Last administered on 05/01/17 16:48; Start 04/23/17 at 08:00 Non-Formulary Medication 20 mcg Q12HR NEB ; Start 04/22/17 at 21:00; Status UNV Insulin Detemir (Levemir) 8 units QHS SQ Last administered on 04/30/17 19:45; Start 04/22/17 at 22:00 Isosorbide Mononitrate (Imdur) 120 mg DAILY PO Last administered on 05/01/17 07:55; Start 04/23/17 at 09:00 Albuterol/ Ipratropium (Duoneb) 3 ml RTQID NEB Last administered on 05/01/17 20:03; Start 04/23/17 at 08:00 Warfarin Sodium (Coumadin Per Physician) 1 each PRN DAILY PRN MC SEE COMMENTS; Start 04/22/17 at 21:45; Stop 04/23/17 at 20:23; Status DC Temazepam (Restoril) 15 mg PRN QHS PRN PO INSOMNIA, MAY REPEAT X1 Last administered on 05/01/17 20:08; Start 04/22/17 at 22:30 Olanzapine (ZyPREXA ZYDIS) 5 mg PRN Q2HR PRN PO Agitation Last administered on 05/01/17 18:31; Start 04/22/17 at 22:30 Albuterol/ Ipratropium (Duoneb) 3 ml STK-MED ONCE .ROUTE ; Start 04/23/17 at 02: 56; Stop 04/23/17 at 04:57; Status DC Warfarin Sodium (Coumadin Per Pharmacy) 1 each PRN DAILY PRN MC SEE COMMENTS Last administered on 04/25/17 11:39; Start 04/23/17 at 20:00 Duloxetine HCl (Cymbalta) 30 mg DAILY PO Last administered on 05/01/17 07:54; Start 04/24/17 at 09:00 Calcium Polycarbophil (Fibercon) 1,250 mg DAILY PO Last administered on 07:55; Start 04/27/17 at 15:15 Lamotrigine (LaMICtal) 25 mg HS PO Last administered on 04/30/17 19:42; Start 04/28/17 at 21:00; Stop 05/01/17 at 10:00; Status DC Lamotrigine (LaMICtal) 50 mg HS PO Last administered on 05/01/17 20:10; Start 05/01/17 at 21:00 Active Scripts Active Reported Vitamin D3 (Cholecalciferol (Vitamin D3)) 1,000 Unit Tablet 2,000 Unit PO DAILY Torsemide 20 Mg Tablet 40 Mg PO DAILY Theochron (Theophylline Anhydrous) 200 Mg Tab.er.12h 200 Mg PO BID Zoloft (Sertraline Hcl) 100 Mg Tablet 150 Mg PO DAILY Senna-S Tablet (Sennosides/Docusate Sodium) 1 Each Tablet 1 Tab PO DAILY Klor-Con M20 (Potassium Chloride) 20 Meq Tab.er.prt 40 Meq PO DAILY Novolog Flexpen (Insulin Aspart) 100 Unit/1 Ml Insuln.pen 6 Unit SQ TIDWMEALS NITROGLYCERIN SubLingual (Nitroglycerin) 0.4 Mg Tab.subl 0.4 Mg SL PRN Q5MIN PRN Mag-Al Plus Xs Suspension (Mag Hydrox/Al Hydrox/Simeth) 30 Ml Oral.susp 15 Ml PO PRN Q4HRS PRN Mucinex (Guaifenesin) 600 Mg Tablet.er 600 Mg PO Q12HR Losartan Potassium 50 Mg Tablet 50 Mg PO DAILY Levothyroxine Sodium 50 Mcg Tablet 50 Mcg PO DAILY07 Lantus Solostar (Insulin Glargine,Hum.rec.anlog) 100 Unit/1 Ml Insuln.pen 8 Unit SQ QHS Klonopin (Clonazepam) 0.5 Mg Tablet 0.5 Mg PO TID Klonopin (Clonazepam) 0.5 Mg Tablet 0.5 Mg PO PRN DAILY PRN Isosorbide Mononitrate Er (Isosorbide Mononitrate) 120 Mg Tab.er.24h 120 Mg PO DAILY Hydralazine Hcl 50 Mg Tablet 50 Mg PO TID Perforomist (Formoterol Fumarate) 20 Mcg/2 Ml Vial.neb 20 Mcg NEB Q12HR Fibercon (Calcium Polycarbophil) 625 Mg Tablet 1,250 Mg PO DAILY Duoneb 0.5-3(2.5) Mg/3 Ml (Albuterol/Ipratropium) 3 Ml Ampul.neb 3 Ml NEB QID Dilaudid (Hydromorphone Hcl) 2 Mg Tablet 2 Mg PO PRN Q3HRS PRN Depakote (Divalproex Sodium) 250 Mg Tablet.dr 250 Mg PO TID Coumadin (Warfarin Sodium) 4 Mg Tablet 4 Mg PO DAILY16 Clonidine Hcl 0.1 Mg Tablet 0.1 Mg PO TID Calcium 600 + Vit D 200 Tablet (Calcium Carbonate/Vitamin D3) 1 Each Tablet 1 Tab PO BID Budesonide 0.5 Mg/2 Ml Ampul.neb 0.5 Mg IH BID Bisoprolol Fumarate 10 Mg Tablet 10 Mg PO DAILY Atorvastatin Calcium 80 Mg Tablet 80 Mg PO QHS Aspir-Low (Aspirin) 81 Mg Tablet.dr 81 Mg PO DAILY Albuterol Sulfate Neb Soln (Albuterol Sulfate) 2.5 Mg/3 Ml Vial.neb 2.5 Mg NEB PRN Q2HR PRN Diagnosis: Problems: (1) Bipolar disorder (2) Behavioral problem (3) Anxiety disorder (4) Impulse control disorder (5) Major depressive disorder, recurrent episode (6) Bipolar affective disorder, mixed LISA MAGANA MD May 01, 2017 21:06
[2017-05-01] MEDS: INSULIN DETEMIR 300 UNITS/3 ML INSULN.PEN. SQ SCH (22:13)
--- NOTE | 2017-05-01 23:00 | NUR ---
Behavior Intervention Response and Plan: BIRP Note: Behavior: Assumed Care of patient, patient located in Patient Room at shift change. Patient exhibited the following behavior Calm, Able to Focus on Task, Withdrawn. Brief assessment on rounds of vital signs, medication needs, lab studies, and pain. Treatment plan problems :1-2 Intervention: Patient assessed and the following interventions initiated safety checks 15 Minute Checks Cognitive Assessment , Head to toe Assessment , Medications. Response: After interactions and interventions patient responded in the following manner, Calm , Able to Focus on Task ,Compliant. Continue to assess behaviors and condition will continue to monitor throughout the shift as needed. Patient educated on ADL's, and hand hygiene. Plan: Continue to monitor Master Treatment Plan for patient's progress toward short term goals of Improved Mood, No harm To self/ others, correction goals to return to previous living setting vs placement. Continue to assess patient for changes in above assessment. Monitor for medication needs, pain, and safety concerns. Hourly rounding performed to ensure safe environment.
--- NOTE | 2017-05-01 23:04 | NUR ---
Nsg Note: Pt c/o knee & generalized pain @ shift change & rated it a 7-8/10. He requested a dilaudid & was given same w/ good results AEB a score of 2/10 within an hour. Will cont. to monitor.
[2017-05-02] MEDS: IPRATRPIUM/ALBUTEROL 0.5/2.5MG 3 ML NEBU. NEB SCH ×4 (05:29→20:02)
[2017-05-02] MEDS: LEVOTHYROXINE 50 MCG TABLET PO SCH (05:39)
[2017-05-02 06:13] VITALS: BP 151/89
[2017-05-02] MEDS: CALCIUM CARB/VIT D3 500/200 TABLET PO SCH ×2 (08:13→17:02)
[2017-05-02] MEDS: INSULIN ASPART 300 UNITS/3 ML INSULN.PEN SQ SCH ×3 (08:13→17:02)
[2017-05-02] MEDS: ASPIRIN ENTERIC COATED 81 MG TABLET.DR. PO SCH (08:15)
[2017-05-02] MEDS: cloNIDine HCL 0.1 MG TABLET PO SCH ×3 (08:16→19:41)
[2017-05-02] MEDS: LOSARTAN 50 MG TABLET. PO SCH (08:16)
[2017-05-02] MEDS: TORSEMIDE 20 MG TABLET. PO SCH (08:24)
[2017-05-02] MEDS: DULoxetine HCL 30 MG CAPSULE.DR PO SCH (08:24)
[2017-05-02] MEDS: CALCIUM POLYCARBOPHIL 625 MG TABLET PO SCH (08:25)
[2017-05-02] MEDS: ISOSORBIDE MONONITRATE ER 30 MG TAB.ER.24H PO SCH (08:25)
[2017-05-02] MEDS: POTASSIUM CHLORIDE 20 MEQ TABLET.ER. PO SCH (08:26)
[2017-05-02] MEDS: clonazePAM 0.5 MG TABLET PO SCH ×3 (08:26→19:40)
[2017-05-02] MEDS: SENNOSIDES/DOCUSATE 8.6/50MG TABLET. PO SCH (08:26)
[2017-05-02] MEDS: ATENOLOL 25 MG TABLET PO SCH (08:27)
[2017-05-02] MEDS: THEOPHYLLINE ANHYDROUS 400 MG TABLET.ER. PO SCH ×2 (08:27→19:43)
--- NOTE | 2017-05-02 08:27 | NUR ---
Pharmacy Warfarin Dosing Note S:Pharmacy consulted to assist with anticoagulation therapy started 04/22/17 with target INR: 2 -3 O:ISHMAEL MCKEON is a 56 year old M with Atrial Fibrillation LABS: Last INR: 2.3 Last HGB: 13.1 Last HCT: 39.8 Last PLT: 143 Last dose of 4 mg given on 05/01/17 at 1600 Previous Regimen: Vitamin K given: Drug Interaction Changes: Ongoing Drug Interactions: A:INR Within desired Range. Target Range for this patient is: 2 -3 P: Warfarin dose: 4 mg Daily Bridge Therapy: None Next INR due 05/09/17 Pharmacy anticoagulation service will continue to follow. RANDY IBANEZ, 05/02/17 0827
[2017-05-02] MEDS: CHOLECALCIFEROL (VITAMIN D3) 1,000 UNIT TABLET PO SCH (08:29)
[2017-05-02] MEDS: BUDESONIDE 0.5 MG/2 ML NEBU NEB SCH ×2 (09:41→20:02)
--- NOTE | 2017-05-02 10:00 | NUR ---
Behavior Intervention Response and Plan: BIRP Note: Behavior: Assumed Care of patient, patient located in Hallway at shift change. Patient exhibited the following behavior calm, cooperative, compliant. Brief assessment on rounds of vital signs, medication needs, lab studies, and pain. Treatment plan problems 1 and 2. Intervention: Patient assessed and the following interventions initiated safety checks 15 Minute Checks Cognitive Assessment , Head to toe Assessment , Medications. Response: After interactions and interventions patient responded in the following manner, cooperative, compliant, appropriate, social. Continue to assess behaviors and condition will continue to monitor throughout the shift as needed. Patient educated on ADL's, and hand hygiene. 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 Continue to assess patient for changes in above assessment. Monitor for medication needs, pain, and safety concerns. Hourly rounding performed to ensure safe environment.
[2017-05-02] MEDS: HYDROmorphone 2 MG TABLET PO PRN ×3 (10:52→19:40)
[2017-05-02 14:15] VITALS: BP 122/74
[2017-05-02 16:11] VITALS: BP 126/68
[2017-05-02] MEDS: WARFARIN 4 MG TABLET. PO SCH (17:02)
[2017-05-02] MEDS: lamoTRIgine 25 MG TABLET. PO SCH (19:39)
[2017-05-02] MEDS: TEMAZEPAM 15 MG CAPSULE PO PRN (19:40)
[2017-05-02] MEDS: ATORVASTATIN CALCIUM 20 MG TABLET PO SCH (19:43)
[2017-05-02] MEDS: INSULIN DETEMIR 300 UNITS/3 ML INSULN.PEN. SQ SCH (19:58)
--- NOTE | 2017-05-02 20:12 | PN ---
DATE: 05/01/2017 This is a late entry 05/01/2017, covers the elements not covered in my initial note of 05/01/2017. SUBJECTIVE: The patient was seen individually evening of 05/01/2017. The previous evening, he was extremely agitated, aggressive, threatening to bang on the doors, kicking the doors, putting his head in his hands, frustrated. He states he was just distressed with all the noise and extreme stimuli on the unit. Morning of 05/01/2017, he was apologetic for his behaviors previous evening and as I met with him evening of 05/01/2017, he has had much the rest of the day 05/01/2017, had gone well. He states he felt elated not necessarily manic. REVIEW OF SYSTEMS: No CV, , pulmonary, eye, ENT system symptoms on review. MENTAL STATUS EXAM: Reasonably oriented. Speech is coherent, abstraction fair, computation impaired, language function intact, attention span short. Mood and affect remains intermittently labile, but better during the day on 05/01/2017. He is tolerating the Lamictal. I have carefully reviewed his current psychotropics and drug interactions, risk/benefit ratio favors no further change, we are gradually increasing the Lamictal. IMPRESSION: Unchanged from initial note. LISA MAGANA MD DR: HARDIK/sandro JOB#: [id number] / [id number]
--- NOTE | 2017-05-02 22:32 | PDOC ---
Exam Duong Demential Exam: Duong Note: Please also refer to the separate dictated note~for this date of service dictated separately.~Patient seen individually. Discussed the patient with Nursing staff reviewed the chart.~Reviewed interim history and current functioning. Reviewed vital signs,~Labs/ Radiology~and current medications noted below. Continue current treatment with the changes noted in the dictated addendum note Assessment: Vital Signs: Vital Signs Date Time Temp Pulse Resp B/P (MAP) Pulse Ox O2 Delivery O2 Flow Rate FiO2 05/02/17 20:09 Room Air 05/02/17 20:05 98 05/02/17 19:41 76 126/68 05/02/17 16:11 98.6 18 I&O Intake and Output 05/03/17 07:00 Intake Total 1920 ml Balance 1920 ml Intake Oral 1920 ml # Voids 2 Labs: Laboratory Tests Test 05/02/17 06:24 05/02/17 07:49 05/02/17 11:07 05/02/17 16:49 Prothrombin Time 23.1 SEC (9.4-11.4) H Prothrombin Time INR 2.3 (0.9-1.1) H Glucose (Fingerstick) 113 mg/dL (70-99) H 209 mg/dL (70-99) H 197 mg/dL (70-99) H Test 05/02/17 19:47 Glucose (Fingerstick) 172 mg/dL (70-99) H Current Medications: Meds: Current Medications Clonazepam (KlonoPIN) 0.5 mg 1X ONCE PO ; Start 04/22/17 at 20:15; Stop at 20:15; Status DC Clonazepam (KlonoPIN) 0.5 mg 1X ONCE PO Last administered on 04/22/17 20:20; Start 04/22/17 at 20:15; Stop 04/22/17 at 20:16; Status DC Acetaminophen (Tylenol) 650 mg PRN Q6HRS PRN PO PAIN / TEMP Last administered on 05/02/17 08:42; Start 04/22/17 at 21:00 Multi-Ingredient Ointment (Analgesic [place]) 1 ismael PRN QID PRN TP MUSCLE PAIN; Start 04/22/17 at 21:00 Al Hydroxide/Mg Hydroxide (Mylanta Plus Xs) 15 ml PRN AFTMEALHC PRN PO DYSPEPSIA; Start 04/22/17 at 21:00; Status UNV Magnesium Hydroxide (Milk Of Magnesia) 2,400 mg PRN QHS PRN PO CONSTIPATION; Start 04/22/17 at 21:00 Clonazepam (KlonoPIN) 0.5 mg PRN DAILY PRN PO ANXIETY Last administered on 05/01 02:14; Start 04/22/17 at 21:00 Clonazepam (KlonoPIN) 0.5 mg TID PO Last administered on 05/02/17 19:40; Start 04/22/17 at 21:30 Divalproex Sodium (Depakote) 250 mg TID PO Last administered on 04/27/17 14:06 ; Start 04/22/17 at 21:30; Stop 04/27/17 at 18:20; Status DC Sertraline HCl (Zoloft) 150 mg DAILY PO Last administered on 04/23/17 08:10; Start 04/23/17 at 09:00; Stop 04/23/17 at 20:15; Status DC Albuterol Sulfate (Ventolin) 2.5 mg STK-MED ONCE .ROUTE ; Start 04/22/17 at 18: 56; Stop 04/22/17 at 20:56; Status DC Budesonide (Pulmicort) 0.5 mg STK-MED ONCE .ROUTE ; Start 04/22/17 at 18:56; Stop 04/22/17 at 20:56; Status DC Albuterol Sulfate (Ventolin) 2.5 mg PRN Q2HR PRN NEB WHEEZING; Start 04/22/17 at 21:00 Aspirin (Aspirin Enteric Coated) 81 mg DAILY PO Last administered on 05/02/17 08:15; Start 04/23/17 at 09:00 Budesonide (Pulmicort) 0.5 mg BID NEB Last administered on 05/02/17 20:02; Start 04/22/17 at 21:00 Calcium Polycarbophil (Fibercon) 1,250 mg DAILY PO Last administered on 07:34; Start 04/23/17 at 09:00; Stop 04/27/17 at 15:07; Status DC Vitamin D (Vitamin D3) 2,000 unit DAILY PO Last administered on 05/02/17 08:29 ; Start 04/23/17 at 09:00 Clonidine HCl (Catapres) 0.1 mg TID PO Last administered on 05/02/17 19:41; Start 04/22/17 at 21:30 Guaifenesin (Mucinex Er) 600 mg Q12HR PO Last administered on 05/02/17 19:41; Start 04/22/17 at 21:30 Hydralazine HCl (Apresoline) 50 mg TID PO Last administered on 05/02/17 19:39 ; Start 04/22/17 at 21:30 Hydromorphone HCl (Dilaudid) 2 mg PRN Q3HRS PRN PO PAIN Last administered on 19:40; Start 04/22/17 at 21:00 Insulin Aspart (NovoLOG) 6 units TIDWMEALS SQ Last administered on 05/02/17 17 :02; Start 04/23/17 at 08:00 Albuterol/ Ipratropium (Duoneb) 3 ml QID NEB Last administered on 04/22/17 21: 00; Start 04/22/17 at 21:00; Stop 04/22/17 at 21:23; Status DC Levothyroxine Sodium (Synthroid) 50 mcg DAILY07 PO Last administered on 05:39; Start 04/23/17 at 07:00 Losartan Potassium (Cozaar) 50 mg DAILY PO Last administered on 05/02/17 08:16 ; Start 04/23/17 at 09:00 Al Hydroxide/Mg Hydroxide (Mylanta Plus Xs) 15 ml PRN Q4HRS PRN PO DYSPEPSIA; Start 04/22/17 at 21:00 Nitroglycerin (Nitrostat) 0.4 mg PRN Q5MIN PRN SL CHEST PAIN; Start 04/22/17 at 21:00 Potassium Chloride (Klor-Con) 40 meq DAILY PO Last administered on 05/02/17 08 :26; Start 04/23/17 at 09:00 Senna/Docusate Sodium (Senna Plus) 1 tab DAILY PO Last administered on 08:26; Start 04/23/17 at 09:00 Theophylline (Theophylline Extended Release) 200 mg BID PO Last administered on 05/02/17 19:43; Start 04/22/17 at 21:30 Torsemide (Demadex) 40 mg DAILY PO Last administered on 05/02/17 08:24; Start 04/23/17 at 09:00 Warfarin Sodium (Coumadin) 4 mg DAILY16 PO Last administered on 05/02/17 17:02 ; Start 04/23/17 at 16:00 Atorvastatin Calcium (Lipitor) 80 mg QHS PO Last administered on 05/02/17 19: 43; Start 04/23/17 at 21:00 Atenolol (Tenormin) 100 mg DAILY PO Last administered on 05/02/17 08:27; Start 04/23/17 at 09:00 Calcium/Vitamin D (Oscal D 500mg/ 200uts) 1 tab BIDWMEALS PO Last administered on 05/02/17 17:02; Start 04/23/17 at 08:00 Non-Formulary Medication 20 mcg Q12HR NEB ; Start 04/22/17 at 21:00; Status UNV Insulin Detemir (Levemir) 8 units QHS SQ Last administered on 05/02/17 19:58; Start 04/22/17 at 22:00 Isosorbide Mononitrate (Imdur) 120 mg DAILY PO Last administered on 05/02/17 08:25; Start 04/23/17 at 09:00 Albuterol/ Ipratropium (Duoneb) 3 ml RTQID NEB Last administered on 05/02/17 20:02; Start 04/23/17 at 08:00 Warfarin Sodium (Coumadin Per Physician) 1 each PRN DAILY PRN MC SEE COMMENTS; Start 04/22/17 at 21:45; Stop 04/23/17 at 20:23; Status DC Temazepam (Restoril) 15 mg PRN QHS PRN PO INSOMNIA, MAY REPEAT X1 Last administered on 05/02/17 19:40; Start 04/22/17 at 22:30 Olanzapine (ZyPREXA ZYDIS) 5 mg PRN Q2HR PRN PO Agitation Last administered on 05/01/17 18:31; Start 04/22/17 at 22:30 Albuterol/ Ipratropium (Duoneb) 3 ml STK-MED ONCE .ROUTE ; Start 04/23/17 at 02: 56; Stop 04/23/17 at 04:57; Status DC Warfarin Sodium (Coumadin Per Pharmacy) 1 each PRN DAILY PRN MC SEE COMMENTS Last administered on 05/02/17 08:27; Start 04/23/17 at 20:00 Duloxetine HCl (Cymbalta) 30 mg DAILY PO Last administered on 05/02/17 08:24; Start 04/24/17 at 09:00 Calcium Polycarbophil (Fibercon) 1,250 mg DAILY PO Last administered on 08:25; Start 04/27/17 at 15:15 Lamotrigine (LaMICtal) 25 mg HS PO Last administered on 04/30/17 19:42; Start 04/28/17 at 21:00; Stop 05/01/17 at 10:00; Status DC Lamotrigine (LaMICtal) 50 mg HS PO Last administered on 05/02/17 19:39; Start 05/01/17 at 21:00 Active Scripts Active Reported Vitamin D3 (Cholecalciferol (Vitamin D3)) 1,000 Unit Tablet 2,000 Unit PO DAILY Torsemide 20 Mg Tablet 40 Mg PO DAILY Theochron (Theophylline Anhydrous) 200 Mg Tab.er.12h 200 Mg PO BID Zoloft (Sertraline Hcl) 100 Mg Tablet 150 Mg PO DAILY Senna-S Tablet (Sennosides/Docusate Sodium) 1 Each Tablet 1 Tab PO DAILY Klor-Con M20 (Potassium Chloride) 20 Meq Tab.er.prt 40 Meq PO DAILY Novolog Flexpen (Insulin Aspart) 100 Unit/1 Ml Insuln.pen 6 Unit SQ TIDWMEALS NITROGLYCERIN SubLingual (Nitroglycerin) 0.4 Mg Tab.subl 0.4 Mg SL PRN Q5MIN PRN Mag-Al Plus Xs Suspension (Mag Hydrox/Al Hydrox/Simeth) 30 Ml Oral.susp 15 Ml PO PRN Q4HRS PRN Mucinex (Guaifenesin) 600 Mg Tablet.er 600 Mg PO Q12HR Losartan Potassium 50 Mg Tablet 50 Mg PO DAILY Levothyroxine Sodium 50 Mcg Tablet 50 Mcg PO DAILY07 Lantus Solostar (Insulin Glargine,Hum.rec.anlog) 100 Unit/1 Ml Insuln.pen 8 Unit SQ QHS Klonopin (Clonazepam) 0.5 Mg Tablet 0.5 Mg PO TID Klonopin (Clonazepam) 0.5 Mg Tablet 0.5 Mg PO PRN DAILY PRN Isosorbide Mononitrate Er (Isosorbide Mononitrate) 120 Mg Tab.er.24h 120 Mg PO DAILY Hydralazine Hcl 50 Mg Tablet 50 Mg PO TID Perforomist (Formoterol Fumarate) 20 Mcg/2 Ml Vial.neb 20 Mcg NEB Q12HR Fibercon (Calcium Polycarbophil) 625 Mg Tablet 1,250 Mg PO DAILY Duoneb 0.5-3(2.5) Mg/3 Ml (Albuterol/Ipratropium) 3 Ml Ampul.neb 3 Ml NEB QID Dilaudid (Hydromorphone Hcl) 2 Mg Tablet 2 Mg PO PRN Q3HRS PRN Depakote (Divalproex Sodium) 250 Mg Tablet.dr 250 Mg PO TID Coumadin (Warfarin Sodium) 4 Mg Tablet 4 Mg PO DAILY16 Clonidine Hcl 0.1 Mg Tablet 0.1 Mg PO TID Calcium 600 + Vit D 200 Tablet (Calcium Carbonate/Vitamin D3) 1 Each Tablet 1 Tab PO BID Budesonide 0.5 Mg/2 Ml Ampul.neb 0.5 Mg IH BID Bisoprolol Fumarate 10 Mg Tablet 10 Mg PO DAILY Atorvastatin Calcium 80 Mg Tablet 80 Mg PO QHS Aspir-Low (Aspirin) 81 Mg Tablet.dr 81 Mg PO DAILY Albuterol Sulfate Neb Soln (Albuterol Sulfate) 2.5 Mg/3 Ml Vial.neb 2.5 Mg NEB PRN Q2HR PRN Diagnosis: Problems: (1) Bipolar disorder (2) Behavioral problem (3) Anxiety disorder (4) Impulse control disorder (5) Major depressive disorder, recurrent episode (6) Bipolar affective disorder, mixed LISA MAGANA MD May 02, 2017 22:32
--- NOTE | 2017-05-02 23:14 | NUR ---
Behavior Intervention Response and Plan: BIRP Note: Behavior: Assumed Care of patient, patient located in Hallway at shift change. Patient exhibited the following behavior Interactive, Calm, Able to Focus on Task. Brief assessment on rounds of vital signs, medication needs, lab studies, and pain. Treatment plan problems:1-2 Intervention: Patient assessed and the following interventions initiated safety checks 15 Minute Checks Cognitive Assessment , Head to toe Assessment , Medications. Response: After interactions and interventions patient responded in the following manner, Cooperative , Calm ,Compliant. Continue to assess behaviors and condition will continue to monitor throughout the shift as needed. Patient educated on ADL's, and hand hygiene. Plan: Continue to monitor Master Treatment Plan for patient's progress toward short term goals of Decreased Anxiety, Improved Mood, penitentiary goals to return to previous living setting vs placement. Continue to assess patient for changes in above assessment. Monitor for medication needs, pain, and safety concerns. Hourly rounding performed to ensure safe environment.
[2017-05-03] MEDS ORDERED: DULO30CA2 PO (00:49)
[2017-05-03] MEDS ORDERED: OLAN5TAB5 PO (00:54)
[2017-05-03] MEDS ORDERED: TEMA15CA PO (00:55)
[2017-05-03] MEDS ORDERED: LAMO25TA PO (00:58)
[2017-05-03] MEDS: IPRATRPIUM/ALBUTEROL 0.5/2.5MG 3 ML NEBU. NEB SCH ×2 (05:26→10:33)
[2017-05-03] MEDS: LEVOTHYROXINE 50 MCG TABLET PO SCH (05:36)
[2017-05-03 06:44] VITALS: BP 151/84
[2017-05-03] MEDS: CALCIUM CARB/VIT D3 500/200 TABLET PO SCH (08:12)
[2017-05-03] MEDS: INSULIN ASPART 300 UNITS/3 ML INSULN.PEN SQ SCH ×2 (08:13→11:44)
[2017-05-03] MEDS: ASPIRIN ENTERIC COATED 81 MG TABLET.DR. PO SCH (08:14)
[2017-05-03] MEDS: cloNIDine HCL 0.1 MG TABLET PO SCH (08:15)
[2017-05-03] MEDS: LOSARTAN 50 MG TABLET. PO SCH (08:15)
[2017-05-03] MEDS: TORSEMIDE 20 MG TABLET. PO SCH (08:16)
[2017-05-03] MEDS: DULoxetine HCL 30 MG CAPSULE.DR PO SCH (08:16)
[2017-05-03] MEDS: CALCIUM POLYCARBOPHIL 625 MG TABLET PO SCH (08:18)
[2017-05-03] MEDS: POTASSIUM CHLORIDE 20 MEQ TABLET.ER. PO SCH (08:19)
[2017-05-03] MEDS: ISOSORBIDE MONONITRATE ER 30 MG TAB.ER.24H PO SCH (08:19)
[2017-05-03] MEDS: clonazePAM 0.5 MG TABLET PO SCH (08:19)
--- NOTE | 2017-05-03 08:19 | NUR ---
[facility] Social Work Discharge Planning Form Patient Name ISHMAEL MCKEON Admit Date:04/22/2017 DISCHARGE PLAN Discharge Destination: [facility] Transportation: [facility] picking up pt at 12:00pm. DISCHARGE TO FACILITY Facility: [facility] Address: [address] [place] [address] [place] [address] Contact Name: LIBRA Ordonez, Other: Contact Name: LIBRA ALEJANDRO, Other: PCP: Vinayak Kwon Psychiatrist: Psychiatrist/Mental Health Follow Up 7-10 days at facility Primary Care Follow Up 7-10 days at facility
[2017-05-03] MEDS: SENNOSIDES/DOCUSATE 8.6/50MG TABLET. PO SCH (08:20)
[2017-05-03 08:22] VITALS: BP 154/84
[2017-05-03] MEDS: THEOPHYLLINE ANHYDROUS 400 MG TABLET.ER. PO SCH (08:22)
[2017-05-03] MEDS: CHOLECALCIFEROL (VITAMIN D3) 1,000 UNIT TABLET PO SCH (08:22)
[2017-05-03] MEDS: ATENOLOL 25 MG TABLET PO SCH (08:22)
[2017-05-03] MEDS: HYDROmorphone 2 MG TABLET PO PRN (09:33)
--- NOTE | 2017-05-03 09:57 | NUR ---
Group Note [facility] Group Type Orientation Group Start Time: 9:00am End Time: 9:15am Problem: Anxiety Purpose: Increase Orientation Level of Participation: low Behaviors or Symptoms Observed: Pt was present at group but remained quiet and observant. Interventions: Education, Orientation, Socialization Response: Pt responded to questions when prompted. Plan: Group Participation Additional Comments:
[2017-05-03] MEDS ORDERED: ACET325T9 PO (10:32)
[2017-05-03] MEDS: BUDESONIDE 0.5 MG/2 ML NEBU NEB SCH (10:33)
--- NOTE | 2017-05-03 11:05 | NUR ---
Behavior Intervention Response and Plan: BIRP Note: Behavior: Assumed Care of patient, patient located in Hallway at shift change. Patient exhibited the following behavior anxious, calm, cooperative, compliant, happy. Brief assessment on rounds of vital signs, medication needs, lab studies, and pain. Treatment plan problems 1 and 2. Intervention: Patient assessed and the following interventions initiated safety checks 15 Minute Checks Cognitive Assessment , Head to toe Assessment , Medications. Response: After interactions and interventions patient responded in the following manner, cooperative, compliant, appropriate, happy, calm. Continue to assess behaviors and condition will continue to monitor throughout the shift as needed. Patient educated on ADL's, and hand hygiene. Plan: Continue to monitor Master Treatment Plan for patient's progress toward short term goals of Decreased Agitation, No harm To self/ others, alf goals to return to previous living setting vs placement. Continue to assess patient for changes in above assessment. Monitor for medication needs, pain, and safety concerns. Hourly rounding performed to ensure safe environment.
--- NOTE | 2017-05-03 12:09 | NUR ---
Transition Record was faxed to follow-up provider with the following elements: Reason for admission, procedures, tests, principal diagnosis, pending studies, patient instructions, 01/03 contact information for unit, phone number to obtain pending test results, plan for follow-up care, physician follow-up, advanced directive information, and medication list with dose, duration and instructions. This information was included in the following documents: History and physical, lab results, study results, progress notes, social work planning form, DC instruction form, patient visit summary, and medication reconciliation form. Date & time record faxed: [id number] 05/03/2017 Record faxed to: Steph Costello Record discussed with/ report given to: Daryn
--- NOTE | 2017-05-03 17:36 | PDOC ---
Exam Duong Demential Exam: Duong Note: Please also refer to the separate dictated note~for this date of service dictated separately.~Patient seen individually. Discussed the patient with Nursing staff reviewed the chart.~Reviewed interim history and current functioning. Reviewed vital signs,~Labs/ Radiology~and current medications noted below. Continue current treatment with the changes noted in the dictated addendum note Assessment: Vital Signs: Vital Signs Date Time Temp Pulse Resp B/P (MAP) Pulse Ox O2 Delivery O2 Flow Rate FiO2 05/03/17 10:45 20 05/03/17 08:22 80 154/84 05/03/17 06:44 97.4 96 05/03/17 05:25 Room Air I&O Intake and Output 05/04/17 07:00 Intake Total 360 ml Balance 360 ml Intake Oral 360 ml Labs: Laboratory Tests Test 05/02/17 19:47 05/03/17 07:29 05/03/17 11:35 Glucose (Fingerstick) 172 mg/dL (70-99) H 129 mg/dL (70-99) H 123 mg/dL (70-99) H Current Medications: Meds: Current Medications Clonazepam (KlonoPIN) 0.5 mg 1X ONCE PO ; Start 04/22/17 at 20:15; Stop at 20:15; Status DC Clonazepam (KlonoPIN) 0.5 mg 1X ONCE PO Last administered on 04/22/17 20:20; Start 04/22/17 at 20:15; Stop 04/22/17 at 20:16; Status DC Acetaminophen (Tylenol) 650 mg PRN Q6HRS PRN PO PAIN / TEMP Last administered on 05/02/17 08:42; Start 04/22/17 at 21:00; Stop 05/03/17 at 12:13; Status DC Multi-Ingredient Ointment (Analgesic [place]) 1 ismael PRN QID PRN TP MUSCLE PAIN; Start 04/22/17 at 21:00; Stop 05/03/17 at 12:13; Status DC Al Hydroxide/Mg Hydroxide (Mylanta Plus Xs) 15 ml PRN AFTMEALHC PRN PO DYSPEPSIA; Start 04/22/17 at 21:00; Status UNV Magnesium Hydroxide (Milk Of Magnesia) 2,400 mg PRN QHS PRN PO CONSTIPATION; Start 04/22/17 at 21:00; Stop 05/03/17 at 12:13; Status DC Clonazepam (KlonoPIN) 0.5 mg PRN DAILY PRN PO ANXIETY Last administered on 05/01 02:14; Start 04/22/17 at 21:00; Stop 05/03/17 at 12:13; Status DC Clonazepam (KlonoPIN) 0.5 mg TID PO Last administered on 05/03/17 08:19; Start 04/22/17 at 21:30; Stop 05/03/17 at 12:13; Status DC Divalproex Sodium (Depakote) 250 mg TID PO Last administered on 04/27/17 14:06 ; Start 04/22/17 at 21:30; Stop 04/27/17 at 18:20; Status DC Sertraline HCl (Zoloft) 150 mg DAILY PO Last administered on 04/23/17 08:10; Start 04/23/17 at 09:00; Stop 04/23/17 at 20:15; Status DC Albuterol Sulfate (Ventolin) 2.5 mg STK-MED ONCE .ROUTE ; Start 04/22/17 at 18: 56; Stop 04/22/17 at 20:56; Status DC Budesonide (Pulmicort) 0.5 mg STK-MED ONCE .ROUTE ; Start 04/22/17 at 18:56; Stop 04/22/17 at 20:56; Status DC Albuterol Sulfate (Ventolin) 2.5 mg PRN Q2HR PRN NEB WHEEZING; Start 04/22/17 at 21:00; Stop 05/03/17 at 12:13; Status DC Aspirin (Aspirin Enteric Coated) 81 mg DAILY PO Last administered on 05/03/17 08:14; Start 04/23/17 at 09:00; Stop 05/03/17 at 12:13; Status DC Budesonide (Pulmicort) 0.5 mg BID NEB Last administered on 05/03/17 10:33; Start 04/22/17 at 21:00; Stop 05/03/17 at 12:13; Status DC Calcium Polycarbophil (Fibercon) 1,250 mg DAILY PO Last administered on 07:34; Start 04/23/17 at 09:00; Stop 04/27/17 at 15:07; Status DC Vitamin D (Vitamin D3) 2,000 unit DAILY PO Last administered on 05/03/17 08:22 ; Start 04/23/17 at 09:00; Stop 05/03/17 at 12:13; Status DC Clonidine HCl (Catapres) 0.1 mg TID PO Last administered on 05/03/17 08:15; Start 04/22/17 at 21:30; Stop 05/03/17 at 12:13; Status DC Guaifenesin (Mucinex Er) 600 mg Q12HR PO Last administered on 05/03/17 08:19; Start 04/22/17 at 21:30; Stop 05/03/17 at 12:13; Status DC Hydralazine HCl (Apresoline) 50 mg TID PO Last administered on 05/03/17 08:14 ; Start 04/22/17 at 21:30; Stop 05/03/17 at 12:13; Status DC Hydromorphone HCl (Dilaudid) 2 mg PRN Q3HRS PRN PO PAIN Last administered on 09:33; Start 04/22/17 at 21:00; Stop 05/03/17 at 12:13; Status DC Insulin Aspart (NovoLOG) 6 units TIDWMEALS SQ Last administered on 05/03/17 11 :44; Start 04/23/17 at 08:00; Stop 05/03/17 at 12:13; Status DC Albuterol/ Ipratropium (Duoneb) 3 ml QID NEB Last administered on 04/22/17 21: 00; Start 04/22/17 at 21:00; Stop 04/22/17 at 21:23; Status DC Levothyroxine Sodium (Synthroid) 50 mcg DAILY07 PO Last administered on 05:36; Start 04/23/17 at 07:00; Stop 05/03/17 at 12:13; Status DC Losartan Potassium (Cozaar) 50 mg DAILY PO Last administered on 05/03/17 08:15 ; Start 04/23/17 at 09:00; Stop 05/03/17 at 12:13; Status DC Al Hydroxide/Mg Hydroxide (Mylanta Plus Xs) 15 ml PRN Q4HRS PRN PO DYSPEPSIA; Start 04/22/17 at 21:00; Stop 05/03/17 at 12:13; Status DC Nitroglycerin (Nitrostat) 0.4 mg PRN Q5MIN PRN SL CHEST PAIN; Start 04/22/17 at 21:00; Stop 05/03/17 at 12:13; Status DC Potassium Chloride (Klor-Con) 40 meq DAILY PO Last administered on 05/03/17 08 :19; Start 04/23/17 at 09:00; Stop 05/03/17 at 12:13; Status DC Senna/Docusate Sodium (Senna Plus) 1 tab DAILY PO Last administered on 08:20; Start 04/23/17 at 09:00; Stop 05/03/17 at 12:13; Status DC Theophylline (Theophylline Extended Release) 200 mg BID PO Last administered on 05/03/17 08:22; Start 04/22/17 at 21:30; Stop 05/03/17 at 12:13; Status DC Torsemide (Demadex) 40 mg DAILY PO Last administered on 05/03/17 08:16; Start 04/23/17 at 09:00; Stop 05/03/17 at 12:13; Status DC Warfarin Sodium (Coumadin) 4 mg DAILY16 PO Last administered on 05/02/17 17:02 ; Start 04/23/17 at 16:00; Stop 05/03/17 at 12:13; Status DC Atorvastatin Calcium (Lipitor) 80 mg QHS PO Last administered on 05/02/17 19: 43; Start 04/23/17 at 21:00; Stop 05/03/17 at 12:13; Status DC Atenolol (Tenormin) 100 mg DAILY PO Last administered on 05/03/17 08:22; Start 04/23/17 at 09:00; Stop 05/03/17 at 12:13; Status DC Calcium/Vitamin D (Oscal D 500mg/ 200uts) 1 tab BIDWMEALS PO Last administered on 05/03/17 08:12; Start 04/23/17 at 08:00; Stop 05/03/17 at 12:13; Status DC Non-Formulary Medication 20 mcg Q12HR NEB ; Start 04/22/17 at 21:00; Status UNV Insulin Detemir (Levemir) 8 units QHS SQ Last administered on 05/02/17 19:58; Start 04/22/17 at 22:00; Stop 05/03/17 at 12:13; Status DC Isosorbide Mononitrate (Imdur) 120 mg DAILY PO Last administered on 05/03/17 08:19; Start 04/23/17 at 09:00; Stop 05/03/17 at 12:13; Status DC Albuterol/ Ipratropium (Duoneb) 3 ml RTQID NEB Last administered on 05/03/17 10:33; Start 04/23/17 at 08:00; Stop 05/03/17 at 12:13; Status DC Warfarin Sodium (Coumadin Per Physician) 1 each PRN DAILY PRN MC SEE COMMENTS; Start 04/22/17 at 21:45; Stop 04/23/17 at 20:23; Status DC Temazepam (Restoril) 15 mg PRN QHS PRN PO INSOMNIA, MAY REPEAT X1 Last administered on 05/02/17 19:40; Start 04/22/17 at 22:30; Stop 05/03/17 at 12:13 ; Status DC Olanzapine (ZyPREXA ZYDIS) 5 mg PRN Q2HR PRN PO Agitation Last administered on 05/01/17 18:31; Start 04/22/17 at 22:30; Stop 05/03/17 at 12:13; Status DC Albuterol/ Ipratropium (Duoneb) 3 ml STK-MED ONCE .ROUTE ; Start 04/23/17 at 02: 56; Stop 04/23/17 at 04:57; Status DC Warfarin Sodium (Coumadin Per Pharmacy) 1 each PRN DAILY PRN MC SEE COMMENTS Last administered on 05/02/17 08:27; Start 04/23/17 at 20:00; Stop 05/03/17 at 12:13; Status DC Duloxetine HCl (Cymbalta) 30 mg DAILY PO Last administered on 05/03/17 08:16; Start 04/24/17 at 09:00; Stop 05/03/17 at 12:13; Status DC Calcium Polycarbophil (Fibercon) 1,250 mg DAILY PO Last administered on 08:18; Start 04/27/17 at 15:15; Stop 05/03/17 at 12:13; Status DC Lamotrigine (LaMICtal) 25 mg HS PO Last administered on 04/30/17 19:42; Start 04/28/17 at 21:00; Stop 05/01/17 at 10:00; Status DC Lamotrigine (LaMICtal) 50 mg HS PO Last administered on 05/02/17 19:39; Start 05/01/17 at 21:00; Stop 05/03/17 at 12:13; Status DC Active Scripts Active Reported Tylenol (Acetaminophen) 325 Mg Tablet 2 Tab PO PRN Q6HRS PRN Lamotrigine 25 Mg Tablet 50 Mg PO QHS Temazepam 15 Mg Capsule 15 Mg PO PRN QHS PRN Zyprexa Zydis (Olanzapine) 5 Mg Tab.rapdis 5 Mg PO PRN Q2HR PRN MDD 15mg Cymbalta (Duloxetine Hcl) 30 Mg Capsule.dr 30 Mg PO DAILY Vitamin D3 (Cholecalciferol (Vitamin D3)) 1,000 Unit Tablet 2,000 Unit PO DAILY Torsemide 20 Mg Tablet 40 Mg PO DAILY Theochron (Theophylline Anhydrous) 200 Mg Tab.er.12h 200 Mg PO BID Senna-S Tablet (Sennosides/Docusate Sodium) 1 Each Tablet 1 Tab PO DAILY Klor-Con M20 (Potassium Chloride) 20 Meq Tab.er.prt 40 Meq PO DAILY Novolog Flexpen (Insulin Aspart) 100 Unit/1 Ml Insuln.pen 6 Unit SQ TIDWMEALS NITROGLYCERIN SubLingual (Nitroglycerin) 0.4 Mg Tab.subl 0.4 Mg SL PRN Q5MIN PRN Mag-Al Plus Xs Suspension (Mag Hydrox/Al Hydrox/Simeth) 30 Ml Oral.susp 15 Ml PO PRN Q4HRS PRN Mucinex (Guaifenesin) 600 Mg Tablet.er 600 Mg PO Q12HR Losartan Potassium 50 Mg Tablet 50 Mg PO DAILY Levothyroxine Sodium 50 Mcg Tablet 50 Mcg PO DAILY07 Lantus Solostar (Insulin Glargine,Hum.rec.anlog) 100 Unit/1 Ml Insuln.pen 8 Unit SQ QHS Klonopin (Clonazepam) 0.5 Mg Tablet 0.5 Mg PO TID Klonopin (Clonazepam) 0.5 Mg Tablet 0.5 Mg PO PRN DAILY PRN Isosorbide Mononitrate Er (Isosorbide Mononitrate) 120 Mg Tab.er.24h 120 Mg PO DAILY Hydralazine Hcl 50 Mg Tablet 50 Mg PO TID Fibercon (Calcium Polycarbophil) 625 Mg Tablet 1,250 Mg PO DAILY Duoneb 0.5-3(2.5) Mg/3 Ml (Albuterol/Ipratropium) 3 Ml Ampul.neb 3 Ml NEB QID Dilaudid (Hydromorphone Hcl) 2 Mg Tablet 2 Mg PO PRN Q3HRS PRN Coumadin (Warfarin Sodium) 4 Mg Tablet 4 Mg PO DAILY16 Clonidine Hcl 0.1 Mg Tablet 0.1 Mg PO TID Calcium 600 + Vit D 200 Tablet (Calcium Carbonate/Vitamin D3) 1 Each Tablet 1 Tab PO BIDWMEALS Budesonide 0.5 Mg/2 Ml Ampul.neb 0.5 Mg IH BID Bisoprolol Fumarate 10 Mg Tablet 10 Mg PO DAILY Atorvastatin Calcium 80 Mg Tablet 80 Mg PO QHS Aspir-Low (Aspirin) 81 Mg Tablet.dr 81 Mg PO DAILY Albuterol Sulfate Neb Soln (Albuterol Sulfate) 2.5 Mg/3 Ml Vial.neb 2.5 Mg NEB PRN Q2HR PRN Diagnosis: Problems: (1) Bipolar affective disorder, mixed (2) Major depressive disorder, recurrent episode (3) Impulse control disorder (4) Anxiety disorder LISA MAGANA MD May 03, 2017 17:36
--- NOTE | 2017-05-04 04:58 | PN ---
DATE: 05/02/2017 PSYCHIATRIC PROGRESS NOTE This late entry 05/02/2017, covers elements not covered in my initial note of 05/02/2017. SUBJECTIVE: Per nursing report, the patient had a good day. He has been more animated, less irritable, did well the previous evening as well. REVIEW OF SYSTEMS: No CV, , pulmonary, eye, ENT system symptoms on review. Reliability poor. MENTAL STATUS EXAM: Reasonably oriented. Speech coherent, very verbal. He had been watching the football game and was very pleased that the [employer] Team had won. No active suicidal or homicidal ideation. Discussed discharge plans at great length. This note covers elements not covered in my initial note of 05/02/2017. IMPRESSION: Unchanged from initial note. PLAN: Continue current psychotropics, gradually increase the Lamictal up to 200 mg a day by 25 mg increments every week, Restoril remains unchanged, reviewed drug interactions, risk/benefit ratio favors no further change. LISA MAGANA MD DR: HARDIK/sandro JOB#: [id number] / [id number]
--- NOTE | 2017-05-04 22:59 | DS ---
DATE OF DISCHARGE: 05/03/2017 DISCHARGE SUMMARY/PSYCHIATRIC PROGRESS NOTE This note for 05/03/2017 covers elements not covered in my initial note of 05/03/2017. REASON FOR ADMISSION: Please refer to the admission history for details. Briefly, the patient is a 56-year-old male referred to us from [facility] in [place], [place] by his primary care physician on account of worsening mood swings within the context of his bipolar disorder. He had been increasingly tearful, voicing suicidal ideation, paranoid, extremely anxious, impulsive, explosive. He had failed outpatient psychiatric interventions resulting in this referral. SIGNIFICANT FINDINGS AND CLINICAL COURSE: Following admission, the patient was seen daily individually by myself, followed medically per Dr. Lee/Dr. Hinton. Initially, the patient was depressed, withdrawn, had vague suicidal ideation, no plan, intent or attempt. Adjustments were made in his psychotropics and he seemed to respond to a combination of Cymbalta 30 mg a day, Klonopin 0.5 mg t.i.d., 0.5 mg daily p.r.n. Lamictal had been increased to 50 mg at bedtime after the Depakote was discontinued since the majority of his symptoms appeared to be consistent with bipolar 2 disorder rather than bipolar 1 disorder. He was also on Zyprexa p.r.n., Restoril 15 mg at bedtime, may repeat x 1 for insomnia. This was very helpful with the insomnia, which had previously been recalcitrant to multiple interventions. Gradually mood appeared to improve. He was not paranoid. Denied suicidal ideation. REVIEW OF SYSTEMS: No CV, , pulmonary, eye, ENT system symptoms on review. MENTAL STATUS EXAM: Reasonably oriented. Speech coherent, abstraction fair, computation impaired, language function intact, attention span short. Mood and affect appeared improved. LABORATORY DATA: Reviewed. FINAL DIAGNOSES: Bipolar 2 disorder, depressed with psychotic features, in partial remission; anxiety disorder, unspecified; impulse control disorder, unspecified. Rest unchanged from admission. DISCHARGE MEDICATIONS: Please refer to the MRAD. DISCHARGE INSTRUCTIONS: Outpatient psychiatric and medical followup at the [facility]. The Lamictal should be gradually increased to approximately 150 or 200 mg a day and then maintained at that dosage before further increase may be considered if mood symptoms persist. Time for discharge and management greater than 30 minutes. MAN Mery MAGANA MD DR: Merlin JOB#: [id number] / [id number]
== END 2017-05-03 12:12 | disposition home or self-care (01) | DRG 885 ==
LOC: EEVIPCON 17:53 → ER 17:53 → GEROPSY 20:19
PROVIDERS: ADMIT Psychiatry & Neurology Psychiatry; ATTEND Psychiatry & Neurology Psychiatry
DX: F31.81 Bipolar II disorder (principal); E11.22 Type 2 diabetes mellitus with diabetic chronic kidney disease; I13.0 Hypertensive heart and chronic kidney disease with heart failure and stage 1 through stage 4 chronic kidney disease, or unspecified chronic kidney disease; I50.9 Heart failure, unspecified; R45.851 Suicidal ideations; Z68.41 Body mass index [BMI] 40.0-44.9, adult; G89.29 Other chronic pain; M54.9 Dorsalgia, unspecified; E03.9 Hypothyroidism, unspecified; E78.5 Hyperlipidemia, unspecified; F41.9 Anxiety disorder, unspecified; F63.9 Impulse disorder, unspecified; G47.00 Insomnia, unspecified; G47.33 Obstructive sleep apnea (adult) (pediatric); I25.10 Atherosclerotic heart disease of native coronary artery without angina pectoris; I48.91 Unspecified atrial fibrillation; J44.9 Chronic obstructive pulmonary disease, unspecified; N18.9 Chronic kidney disease, unspecified; Z87.891 Personal history of nicotine dependence; Z95.1 Presence of aortocoronary bypass graft; Z96.651 Presence of right artificial knee joint; E66.01 Morbid (severe) obesity due to excess calories; Z81.8 Family history of other mental and behavioral disorders
CPT/HCPCS: 36415; 80053; 80061; 80164; 80307; 81001; 82306; 82607; 82947; 83036; 83540; 83550; 83735; 84436; 84443; 84480; 85025; 85610; 86592; 86593; 93005; 94640; J1815; J7620; J7626; 99285-25; G0479